=== PATIENT | male | born 1955 | race Caucasian/White ===

== ENCOUNTER 2019-06-03 05:41 | Emergency (ER) | payer BC ==
[2019-06-03] MEDS ORDERED: Acetaminophen/HYDROcodone 325-5 MG Tab PO ONE (06:11)
--- NOTE | 2019-06-03 06:16 | EDM.PDOC ---
ED HPI GENERAL MEDICAL PROBLEM - General Chief Complaint: Flank Pain Stated Complaint: BACK PAIN Time Seen by Provider: 06/03/19 06:02 Source of Information: Reports: Patient, RN Notes Reviewed - History of Present Illness INITIAL COMMENTS - FREE TEXT/NARRATIVE: 64-year-old male fell out of bed about 2 hours ago. He states he was having a crazy dream, playing football and ended up falling out of bed landing hard on his right side. He hit his face against a dresser alongside the bed did suffer an abrasion injury to the right side of his face. He does have some stiffness and soreness of his neck. He denies injury to his head. He has no headache and there has been no nausea or vomiting. His major discomfort has been his right lower lateral and anterior ribs. He has mild pain with deep breathing, more severe pain with motion. No hip upper or lower extremity pain or injury. He has been ambulatory. Right Flank Pain Score (Numeric/FACES): 9 - Related Data Allergies Allergy/AdvReac Type Severity Reaction Status Date / Time azithromycin [From Zithromax] Allergy Swelling Verified 06/03/19 05:51 Home Meds: Home Meds Aspirin 81 mg PO DAILY 06/03/19 [History] B2/Vits A,C,E/Lut/Zeaxanth/Min [Icaps] 1 tab PO DAILY 06/03/19 [History] Hydrocodone/Acetaminophen [[place] 5-325 Tablet] 2 each PO Q4HR PRN #20 tablet 07/18 [Rx] Multivitamin [Multivitamins] 1 tab PO DAILY 06/03/19 [History] Olmesartan Medoxomil [Benicar] 20 mg PO DAILY 06/03/19 [History] Past Medical History HEENT History: Reports: Impaired Vision Cardiovascular History: Reports: Hypertension Endocrine/Metabolic History: Reports: Other (See Below) Other Endocrine/Metabolic History: prediabetic Oncologic (Cancer) History: Reports: Squamous Cell Carcinoma Dermatologic History: Reports: Eczema - Infectious Disease History Infectious Disease History: Reports: Chicken Pox, Measles, Mumps - Past Surgical History HEENT Surgical History: Reports: Oral Surgery Social & Family History - Family History Family Medical History: Noncontributory - Tobacco Use Smoking Status *Q: Never Smoker Second Hand Smoke Exposure: No - Caffeine Use Caffeine Use: Reports: Coffee, Soda - Recreational Drug Use Recreational Drug Use: No ED ROS GENERAL - Review of Systems Review Of Systems: See Below Constitutional: Reports: No Symptoms HEENT: Reports: Other (He does have some right-sided facial discomfort and has suffered bruise and abrasion injury to the right side of his face) Respiratory: Reports: Pleuritic Chest Pain. Denies: Shortness of Breath Cardiovascular: Reports: Chest Pain GI/Abdominal: Denies: Abdominal Pain, Nausea, Vomiting Musculoskeletal: Reports: Neck Pain. Denies: Back Pain, Joint Pain Skin: Reports: Erythema (Right face) Neurological: Denies: Dizziness, Headache, Numbness, Tingling, Trouble Speaking , Weakness ED EXAM, GENERAL - Physical Exam Exam: See Below General Appearance: Alert, Mild Distress Eye Exam: Bilateral Eye: PERRL Ear Exam: Bilateral Ear: Auricle Normal Nose: Normal Inspection Throat/Mouth: Normal Inspection, Normal Oropharynx Head: Other (Moderate diffuse erythema with superficial abrasion injury and mild bruising right lateral face, no bony tenderness of the zygomatic arch TMJ or mandible.) Neck: No: Tender Midline Respiratory/Chest: No Respiratory Distress, Lungs Clear, Normal Breath Sounds, Other (Moderate tenderness of right lower lateral and anterior lateral rib cage , no bruising or swelling visible). No: Rhonchi, Wheezing Cardiovascular: Regular Rate, Rhythm GI/Abdominal: Soft, Other (Mild tenderness right upper abdomen). No: Guarding Back Exam: No: Paraspinal Tenderness, Vertebral Tenderness Extremities: Normal Inspection, Normal Range of Motion Neurological: Alert, Oriented, No Motor/Sensory Deficits Skin Exam: Warm, Dry Course - Vital Signs Last Recorded V/S: Last Vital Signs Temp 99.1 F 06/03/19 07:30 Pulse 64 06/03/19 07:30 Resp 16 06/03/19 07:30 BP 106/60 06/03/19 07:30 Pulse Ox 92 L 06/03/19 07:30 - Orders/Labs/Meds Meds: Medications Discontinued Medications Generic Name Dose Route Start Last Admin Trade Name Freq PRN Reason Stop Dose Admin Hydrocodone Bitart/Acetaminophen 2 tab 06/03/19 06:11 06/03/19 06:19 [place] 325-5 Mg PO 06/03/19 06:12 2 tab ONETIME ONE Administration - Re-Assessments/Exams Free Text/Narrative Re-Assessment/Exam: 06/04/19 13:21. no visible fx, good relief of pain after 2 norco 5/325, discharge instr. as documented. Departure - Departure Time of Disposition: 07:02 Disposition: Home, Self-Care 01 Condition: Fair Clinical Impression: Fall, Rib contusion, Contusion of flank - Discharge Information Prescriptions: Hydrocodone/Acetaminophen [[place] 5-325 Tablet] 2 each PO Q4HR PRN #20 tablet PRN Reason: Pain Instructions: Contusion, [id number] Referrals: Wesley Mcclain MD [Primary Care Provider] - Forms: ED Department Discharge Additional Instructions: Rest, avoid heavy lifting, alternate ice and heat to area of discomfort as needed, you can take Advil or ibuprofen 3-4 times daily as needed, hydrocodone 1 or 2 tabs every 4-6 hours as needed for severe pain, as the discomfort lessens you can slowly as the frequency and dosage of the hydrocodone as discussed. Prescription for the hydrocodone has been sent electronically to [facility] at the [facility], [place] grocery store location. You can then eventually switch over to Tylenol 3-4 times daily. The pain will likely take one to 2 weeks or even longer to go completely away. Follow-up clinic as needed, return to ED as needed if symptoms worsening in any way. Sepsis Event Note - Evaluation Sepsis Screening Result: No Definite Risk - Focused Exam Date Exam was Performed: 06/04/19 Time Exam was Performed: 13:20
--- NOTE | 2019-06-03 07:05 | CR ---
Chest and right ribs: Frontal view of the chest was obtained as well as four views of the right ribs. Comparison: No previous chest imaging. Heart size appears mildly prominent. Upper mediastinum is normal. Lungs are clear with no acute parenchymal change. Degenerative endplate spurring is noted within the spine. No discrete fracture or other bony abnormality is appreciated. Impression: 1. No discrete right-sided rib abnormality is appreciated. Nondisplaced fracture could be missed. 2. Degenerative endplate spurring within the spine. 3. Nothing acute is appreciated. Diagnostic code #2 This report was dictated in [place] Standard Time
== END 2019-06-03 07:30 | disposition home or self-care (01) ==
LOC: JD.ED 05:41
DX: S20.211A Contusion of right front wall of thorax, initial encounter (principal); S30.1XXA Contusion of abdominal wall, initial encounter; I10 Essential (primary) hypertension; Z88.1 Allergy status to other antibiotic agents; Z79.82 Long term (current) use of aspirin; Z79.899 Other long term (current) drug therapy; W06.XXXA Fall from bed, initial encounter
CPT/HCPCS: 71101; 99284; A9270; 99283

== ENCOUNTER 2020-02-17 10:36 | Emergency (ER) | payer BC ==
--- NOTE | 2020-02-17 11:46 | EDM.PDOC ---
ED HPI GENERAL MEDICAL PROBLEM - General Chief Complaint: Respiratory Problem Stated Complaint: COVID + AND LOW O2 Time Seen by Provider: 02/17/20 11:11 Source of Information: Reports: Patient History Limitations: Reports: No Limitations - History of Present Illness INITIAL COMMENTS - FREE TEXT/NARRATIVE: Patient is a 65-year-old male presenting to the emergency department with complaints of fever, chills, headache, cough, and shortness of breath with exertion. He tested positive for COVID-19 10 days ago, however states he had very minimal symptoms up until about 4 days ago. He was tested because his tested positive. At the time he was tested, he was asymptomatic, however the day after he tested he felt more fatigued. Approximately 4 days ago he states he developed fever, headache, cough, and shortness of breath with exertion. He has a pulse oximeter at home and states his oxygen was as low as 90% this morning. He denies shortness of breath at rest. He has had no nausea, vomiting, or diarrhea. T-max at home was 103, however he states today that his fever seems to be improved. - Related Data Allergies Allergy/AdvReac Type Severity Reaction Status Date / Time azithromycin [From Zithromax] Allergy Swelling Verified 02/17/20 11:07 Home Meds: Home Meds Aspirin 81 mg PO DAILY 06/03/19 [History] B2/Vits A,C,E/Lut/Zeaxanth/Min [Icaps] 1 tab PO DAILY 06/03/19 [History] Hydrocodone/Acetaminophen [[place] 5-325 Tablet] 2 each PO Q4HR PRN #20 tablet 06/03/19 [Rx] Multivitamin [Multivitamins] 1 tab PO DAILY 06/03/19 [History] Olmesartan Medoxomil [Benicar] 20 mg PO DAILY 06/03/19 [History] Benzonatate [Tessalon Perle] 100 - 200 mg PO Q8H PRN #20 capsule 02/17/20 [Rx] dexAMETHasone [Dexamethasone] 6 mg PO BID 4 Days #8 tab 02/17/20 [Rx] Past Medical History HEENT History: Reports: Impaired Vision Cardiovascular History: Reports: Hypertension Endocrine/Metabolic History: Reports: Other (See Below) Other Endocrine/Metabolic History: prediabetic Oncologic (Cancer) History: Reports: Squamous Cell Carcinoma Dermatologic History: Reports: Eczema - Infectious Disease History Infectious Disease History: Reports: Novel Coronavirus - Past Surgical History HEENT Surgical History: Reports: Oral Surgery Social & Family History - Family History Family Medical History: Noncontributory - Tobacco Use Tobacco Use Status *Q: Never Tobacco User Second Hand Smoke Exposure: No - Caffeine Use Caffeine Use: Reports: Coffee - Recreational Drug Use Recreational Drug Use: No ED ROS GENERAL - Review of Systems Review Of Systems: See Below Constitutional: Reports: Fever, Chills, Weakness, Fatigue HEENT: Reports: No Symptoms Respiratory: Reports: Shortness of Breath, Cough, Other (Chest tightness with coughing) Cardiovascular: Reports: Dyspnea on Exertion. Denies: Chest Pain Endocrine: Reports: No Symptoms GI/Abdominal: Reports: No Symptoms. Denies: Abdominal Pain, Diarrhea, Nausea, Vomiting : Reports: No Symptoms Musculoskeletal: Reports: No Symptoms Skin: Reports: No Symptoms Neurological: Reports: Headache. Denies: Confusion Psychiatric: Reports: No Symptoms Hematologic/Lymphatic: Reports: No Symptoms Immunologic: Reports: No Symptoms ED EXAM, GENERAL - Physical Exam Exam: See Below General Appearance: Alert, WD/WN, No Apparent Distress Respiratory/Chest: No Respiratory Distress, Normal Breath Sounds, No Accessory Muscle Use, Chest Non-Tender, Crackles (Fine crackles bilateral lower lobes.). No: Wheezing Cardiovascular: Normal Peripheral Pulses, Regular Rate, Rhythm, No Edema, No Gallop, No JVD, No Murmur, No Rub GI/Abdominal: Normal Bowel Sounds, Soft, Non-Tender, No Organomegaly, No Distention, No Abnormal Bruit, No Mass Neurological: Alert, Oriented, CN II-XII Intact, Normal Cognition, Normal Gait, Normal Reflexes, No Motor/Sensory Deficits Psychiatric: Normal Affect, Normal Mood Skin Exam: Warm, Dry, Intact, Normal Color, No Rash #1 Interpretation EKG Date: 02/17/20 Time: 11:50 Rhythm: NSR Rate (Beats/Min): 82 [place]: Normal P-Wave: Present QRS: Normal ST-T: Normal QT: Normal Course - Vital Signs Last Recorded V/S: Last Vital Signs Temp 97.3 F 02/17/20 11:03 Pulse 86 02/17/20 11:03 Resp 20 02/17/20 11:03 BP 150/85 H 02/17/20 11:03 Pulse Ox 93 L 02/17/20 11:03 - Orders/Labs/Meds Orders: Active Orders 24 hr Category Date Time Status EKG Documentation Completion [RC] STAT Care 02/17/20 11:10 Active Chest 1V Frontal [CR] Stat Exams 02/17/20 11:10 Taken Labs: Laboratory Tests 02/17/20 02/17/20 02/17/20 Range/Units 11:35 11:35 11:35 WBC 8.22 (4.23-9.07) K/mm3 RBC 4.73 (4.63-6.08) M/mm3 Hgb 13.5 L (13.7-17.5) gm/dl Hct 41.2 (40.1-51.0) % MCV 87.1 (79.0-92.2) fl MCH 28.5 (25.7-32.2) pg MCHC 32.8 (32.2-35.5) g/dl RDW Std Deviation 43.3 (35.1-43.9) fL Plt Count 227 (163-337) K/mm3 MPV 8.7 L (9.4-12.3) fl Neut % (Auto) 80.9 H (34.0-67.9) % Lymph % (Auto) 11.8 L (21.8-53.1) % [place] % (Auto) 6.6 (5.3-12.2) % Eos % (Auto) 0.1 L (0.8-7.0) Baso % (Auto) 0.1 (0.1-1.2) % Neut # (Auto) 6.65 H (1.78-5.38) K/mm3 Lymph # (Auto) 0.97 L (1.32-3.57) K/mm3 [place] # (Auto) 0.54 (0.30-0.82) K/mm3 Eos # (Auto) 0.01 L (0.04-0.54) K/mm3 Baso # (Auto) 0.01 (0.01-0.08) K/mm3 D-Dimer, Quantitative 0.73 H (0.19-0.50) mg/L Sodium 140 (136-145) mEq/L Potassium 3.8 (3.5-5.1) mEq/L Chloride 103 (98-107) mEq/L Carbon Dioxide 29 (21-32) mEq/L Anion Gap 11.8 (5-15) BUN 24 H (7-18) mg/dL Creatinine 2.1 H (0.7-1.3) mg/dL Est Cr Clr Drug Dosing 40.23 mL/min Estimated GFR (MDRD) 32 (>60) mL/min BUN/Creatinine Ratio 11.4 L (14-18) Glucose 134 H (80-115) mg/dL Calcium 8.4 L (8.5-10.1) mg/dL Ferritin (26-388) ng/ml Total Bilirubin 0.5 (0.2-1.0) mg/dL AST 34 (15-37) U/L ALT 47 (16-63) U/L Alkaline Phosphatase 95 (46-116) U/L Lactate Dehydrogenase 271 H (85-227) U/L Troponin I < 0.017 (0.00-0.056) ng/mL C-Reactive Protein 20.0 H* (<1.0) mg/dL NT-Pro-B Natriuret Pep (0-125) pg/mL Total Protein 6.4 (6.4-8.2) g/dl Albumin 2.0 L (3.4-5.0) g/dl Globulin 4.4 gm/dL Albumin/Globulin Ratio 0.5 L (1-2) 02/17/20 02/17/20 Range/Units 11:35 11:35 WBC (4.23-9.07) K/mm3 RBC (4.63-6.08) M/mm3 Hgb (13.7-17.5) gm/dl Hct (40.1-51.0) % MCV (79.0-92.2) fl MCH (25.7-32.2) pg MCHC (32.2-35.5) g/dl RDW Std Deviation (35.1-43.9) fL Plt Count (163-337) K/mm3 MPV (9.4-12.3) fl Neut % (Auto) (34.0-67.9) % Lymph % (Auto) (21.8-53.1) % [place] % (Auto) (5.3-12.2) % Eos % (Auto) (0.8-7.0) Baso % (Auto) (0.1-1.2) % Neut # (Auto) (1.78-5.38) K/mm3 Lymph # (Auto) (1.32-3.57) K/mm3 [place] # (Auto) (0.30-0.82) K/mm3 Eos # (Auto) (0.04-0.54) K/mm3 Baso # (Auto) (0.01-0.08) K/mm3 D-Dimer, Quantitative (0.19-0.50) mg/L Sodium (136-145) mEq/L Potassium (3.5-5.1) mEq/L Chloride (98-107) mEq/L Carbon Dioxide (21-32) mEq/L Anion Gap (5-15) BUN (7-18) mg/dL Creatinine (0.7-1.3) mg/dL Est Cr Clr Drug Dosing mL/min Estimated GFR (MDRD) (>60) mL/min BUN/Creatinine Ratio (14-18) Glucose (80-115) mg/dL Calcium (8.5-10.1) mg/dL Ferritin 1506 H (26-388) ng/ml Total Bilirubin (0.2-1.0) mg/dL AST (15-37) U/L ALT (16-63) U/L Alkaline Phosphatase (46-116) U/L Lactate Dehydrogenase (85-227) U/L Troponin I (0.00-0.056) ng/mL C-Reactive Protein (<1.0) mg/dL NT-Pro-B Natriuret Pep 183 H (0-125) pg/mL Total Protein (6.4-8.2) g/dl Albumin (3.4-5.0) g/dl Globulin gm/dL Albumin/Globulin Ratio (1-2) Meds: Medications Discontinued Medications Generic Name Dose Route Start Last Admin Trade Name Freq PRN Reason Stop Dose Admin Dexamethasone 6 mg 02/17/20 12:46 02/17/20 13:15 Dexamethasone PO 02/17/20 12:47 6 mg ONETIME ONE Administration - Re-Assessments/Exams Free Text/Narrative Re-Assessment/Exam: Patient is a 65-year-old male presenting to the emergency department with complaints of cough, fever, headache, and shortness of breath with exertion. He was diagnosed Covid positive however his symptoms were not significant until about 4 days ago. He denies any chest pain associated with this. He has a pulse oximeter at home and states that he has seen his oxygen saturations go as low as 90%. Denies any nausea, vomiting, or diarrhea. Vital signs in triage were stable. We will complete a Covid work-up including CBC, CMP, CRP, D-dimer, troponin, ferritin, LDH, chest x-ray, and EKG. 02/17/20 13:24 Hematology was significant for D-dimer minimally elevated at 0.73, BUN 24, creatinine 2.1, ferritin 1506, LDH 271, CRP 20, BNP 183. Troponin was negative. Chest x-ray showed "bilateral peripheral masslike areas of hyperintensity. This pattern is consistent with the given diagnosis of COVID-19 pneumonia. These findings were not present on June 03, 2019." Patient's oxygen s aturation has been been maintaining 90 to 93% on room air. We will started on dexamethasone 6 mg twice daily. I will also send a prescription for Tessalon Perles. Discussed return precautions with patient and he verbalized understanding. Discharge instructions as documented. Departure - Departure Time of Disposition: 13:27 Disposition: Home, Self-Care 01 Condition: Good Clinical Impression: Pneumonia due to COVID-19 virus - Discharge Information *PRESCRIPTION DRUG MONITORING PROGRAM REVIEWED*: No *COPY OF PRESCRIPTION DRUG MONITORING REPORT IN PATIENT BUCK: No Prescriptions: dexAMETHasone [Dexamethasone] 6 mg PO BID 4 Days #8 tab Benzonatate [Tessalon Perle] 100 - 200 mg PO Q8H PRN #20 capsule PRN Reason: Cough Instructions: COVID-19, COVID-19 Frequently Asked Questions Referrals: Wesley Mcclain MD [Primary Care Provider] - Forms: ED Department Discharge Additional Instructions: You were seen in the emergency department today for cough, fever, headache, and shortness of breath with a diagnosis of COVID-19. Your work-up included blood work, chest x-ray, and an EKG of your heart. Results your work-up were consistent with your diagnosis of COVID-19. Your chest x-ray did show that you have some viral pneumonia. Your troponin and EKG were normal indicating that your heart is not being strained at this point. While in the ER, your oxygen saturations maintained between 90 and 93% on room air. You have been started on dexamethasone which is a steroid as well as Tessalon Perles for cough. Take these medications as prescribed. Continue to monitor your oxygen saturations at home. If you are maintaining an oxygen saturation below 90%, I would recommend that you return to the emergency department for reevaluation. If you experience any other new or worsening symptoms of concern, please do not hesitate to return to the ER. Sepsis Event Note (ED) - Evaluation Sepsis Screening Result: No Definite Risk - Focused Exam Vital Signs: Vital Signs Temp Pulse Resp BP Pulse Ox 02/17/20 11:03 97.3 F 86 20 150/85 H 93 L - My Orders Last 24 Hours: My Active Orders 02/17/20 11:10 EKG Documentation Completion [RC] STAT Chest 1V Frontal [CR] Stat - Assessment/Plan Last 24 Hours: My Active Orders 02/17/20 11:10 EKG Documentation Completion [RC] STAT Chest 1V Frontal [CR] Stat
[2020-02-17] MEDS ORDERED: Dexamethasone 4 MG Tab PO ONE (12:46)
== END 2020-02-17 13:50 | disposition home or self-care (01) ==
LOC: JD.ED 10:36
DX: U07.1 COVID-19 (principal); J12.89 Other viral pneumonia; R79.89 Other specified abnormal findings of blood chemistry; Z88.1 Allergy status to other antibiotic agents; Z79.82 Long term (current) use of aspirin; Z79.899 Other long term (current) drug therapy
CPT/HCPCS: 36415; 71045; 80053; 82728; 83615; 83880; 84484; 85025; 85379; 86140; 93005; 99285; J8540; 93010; 99283

== ENCOUNTER 2020-02-23 20:54 | Inpatient (IN) | payer BC ==
[2020-02-23] MEDS ORDERED: Sodium Chloride 0.9% 1,000 ML IV SCH (21:30)
[2020-02-23] MEDS ORDERED: HYDROmorphone 1 MG/ML Syringe IVPUSH ONE (21:35)
[2020-02-23] MEDS ORDERED: Ondansetron 4 MG/2 ML SDV IVPUSH ONE (21:36)
--- NOTE | 2020-02-23 21:36 | EDM.PDOC ---
ED HPI GENERAL MEDICAL PROBLEM - General Chief Complaint: Respiratory Problem Stated Complaint: STOMACH PAIN/SHORT OF BREATH Time Seen by Provider: 02/23/20 21:07 Source of Information: Reports: Patient, Old Records (ED visit 02/17/2020) History Limitations: Reports: No Limitations - History of Present Illness INITIAL COMMENTS - FREE TEXT/NARRATIVE: Mr. Louis is a very pleasant 65-year-old gentleman who, medical records indicate, was seen in this ED on 02/17/2020 with a complaint at that time of fever, chills, headache, cough, and dyspnea on exertion. A swab on 02/07/2020 had returned positive, although the patient had not had any symptoms until on or about 02/13/2020. The patient had said that the only reason why he was tested is because his had tested positive. He reported that his pulse oximeter had been 90% that morning, with a T-max of 103 degrees. In the ED, the patient was found to be afebrile, saturating 93% on room air. His physical exam found fine bibasilar crackles without wheezing. The remainder of his examination was unremarkable. Work-up included a CBC, CMP, CRP, ferritin, LDH, troponin, BNP, D-dimer, an ECG, and a test x-ray. His BUN/Cr were found to be elevated at 24/2.1, his blood glucose elevated at 134, his CRP elevated at 20.0, his ferritin elevated at 1506, his LDH elevated at 271, his BNP slightly elevated at 183, and his D-dimer mildly elevated at 0.73. The remainder of his blood work was unremarkable. His ECG was unremarkable, however, his chest x-ray demonstrated bilateral peripheral masslike areas of hyperintensity consistent with COVID-19. The patient was given dexamethasone 6 mg, then discharged home with a prescription for dexamethasone 6 mg BID x 4 days, along with Tessalon Perldallas #[id number]. The patient now returns to the ED stating that he developed stabbing right lower quadrant abdominal pain yesterday, 02/22/2020. The pain comes and goes, typically persisting for about 10 to 15 seconds and recurring about every 10 minutes, however, the pain can also be induced if he moves. He has not noticed any other modifiers. He has not had any associated fever, nausea, vomiting, diarrhea, or urinary symptoms. No prior similar symptoms. The patient did not take any [id number] or home remedies since the onset of his symptoms. Here in the ED, the patient's initial BP is found to be mildly elevated at 164/80, otherwise, he is hemodynamically stable, afebrile, saturating 94% on room air. The patient states that he has had a slight cough productive of clear sputum, and dyspnea on exertion since last week. Otherwise, the patient denies having a recent fever, chills, sore throat, ear pain, nasal or sinus congestion, dyspnea at rest, chest pain, palpitations, nausea, vomiting, constipation, diarrhea, urinary symptoms, recent weight gain or weight loss, recent bloody bowel movements or black bowel movements, recent joint aches, headaches, or rashes. The patient's PCP is Dr. Wesley Mcclain. Right Lower Abdomen Pain Score (Numeric/FACES): 4 - Related Data Allergies Allergy/AdvReac Type Severity Reaction Status Date / Time azithromycin [From Zithromax] Allergy Swelling Verified 02/23/20 21:11 Home Meds: Home Meds Aspirin 81 mg PO DAILY 06/03/19 [History] B2/Vits A,C,E/Lut/Zeaxanth/Min [Icaps] 1 tab PO DAILY 06/03/19 [History] Hydrocodone/Acetaminophen [[place] 5-325 Tablet] 2 each PO Q4HR PRN #20 tablet 06/03/19 [Rx] Multivitamin [Multivitamins] 1 tab PO DAILY 06/03/19 [History] Olmesartan Medoxomil [Benicar] 20 mg PO DAILY 06/03/19 [History] Benzonatate [Tessalon Perle] 100 - 200 mg PO Q8H PRN #20 capsule 02/17/20 [Rx] Past Medical History HEENT History: Reports: Impaired Vision Cardiovascular History: Reports: Hypertension Genitourinary History: Reports: Chronic Renal Insuffiency Musculoskeletal History: Reports: Gout (suspected, not confirmed) Endocrine/Metabolic History: Reports: Other (See Below) (Prediabetes) Oncologic (Cancer) History: Reports: Squamous Cell Carcinoma (nose + behind Rt ear, both excised) Dermatologic History: Reports: Eczema - Infectious Disease History Infectious Disease History: Reports: Novel Coronavirus (02/07/2020) - Past Surgical History HEENT Surgical History: Reports: Oral Surgery (dental extractions) Oncologic Surgical History: Reports: Other (See Below) (SCC excised from nose and behind Rt ear) Social & Family History - Family History Family Medical History: Noncontributory - Tobacco Use Tobacco Use Status *Q: Never Tobacco User - Alcohol Use Alcohol Use History: Yes Alcohol Use Frequency: Rarely - Recreational Drug Use Recreational Drug Use: No - Living Situation & Occupation Living situation: Reports: , with Spouse, with Family (Son) 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 ED EXAM, GENERAL - Physical Exam Exam: See Below Exam Limited By: No Limitations General Appearance: Alert, WD/WN, No Apparent Distress (quite uncomfortable when asked to move) Eye Exam: Bilateral Eye: EOMI, Normal Inspection Ears: Normal External Exam, Hearing Grossly Normal Nose: Normal Inspection Throat/Mouth: Normal Inspection, Normal Lips, Normal Voice, No Airway Compromise Head: Atraumatic, Normocephalic Neck: Normal Inspection, Full Range of Motion Respiratory/Chest: No Respiratory Distress, Lungs Clear, Normal Breath Sounds, No Accessory Muscle Use Cardiovascular: Normal Peripheral Pulses, Regular Rate, Rhythm, No Gallop, No JVD, No Murmur, No Rub Peripheral Pulses: 3+: Radial (L), Radial (R) GI/Abdominal: Normal Bowel Sounds, Soft, No Organomegaly, No Distention, No Abnormal Bruit, No Mass, Tender (Exquisite, to the right lower quadrant only. Essentially nontender elsewhere. Rovsing sign absent. Obturator sign present. Psoas sign absent. Heel drop sign absent.) Back Exam: Normal Inspection, Full Range of Motion. No: CVA Tenderness (L), CVA Tenderness (R) Extremities: Normal Inspection, Normal Range of Motion, Normal Capillary Refill Neurological: Alert, Oriented, Normal Cognition, No Motor/Sensory Deficits Psychiatric: Normal Affect Skin Exam: Warm, Dry, Intact, Normal Color, No Rash Course - Vital Signs Last Recorded V/S: Last Vital Signs Temp 36.3 C 02/23/20 21:09 Pulse 97 02/23/20 21:09 Resp 16 02/23/20 21:09 BP 164/80 H 02/23/20 21:09 Pulse Ox 94 L 02/23/20 21:09 - Orders/Labs/Meds Orders: Active Orders 24 hr Category Date Time Status Abdomen Pelvis w Cont [CT] Stat Exams 02/23/20 21:29 Taken Lactated Ringers [Ringers, Lactated] 1,000 ml Med 02/23/20 23:45 Active IV ASDIRECTED Isolation [COMM] Routine Oth 02/23/20 21:41 Ordered Medication Orders Lactated Ringer's (Ringers, Lactated) 1,000 mls @ 125 mls/hr IV ASDIRECTED NICK Last Admin: 02/24/20 00:21 Dose: 125 mls/hr Documented by: GURDEEP Labs: Laboratory Tests 02/23/20 02/23/20 02/23/20 Range/Units 21:53 21:53 23:39 WBC 21.60 H (4.23-9.07) K/mm3 RBC 5.08 (4.63-6.08) M/mm3 Hgb 14.5 (13.7-17.5) gm/dl Hct 44.2 (40.1-51.0) % MCV 87.0 (79.0-92.2) fl MCH 28.5 (25.7-32.2) pg MCHC 32.8 (32.2-35.5) g/dl RDW Std Deviation 43.3 (35.1-43.9) fL Plt Count 356 H D (163-337) K/mm3 MPV 8.7 L (9.4-12.3) fl Neutrophils % (Manual) 95 H (40-60) % Band Neutrophils % 0 (0-10) % Lymphocytes % (Manual) 5 L (20-40) % Atypical Lymphs % 0 % Monocytes % (Manual) 0 L (2-10) % Eosinophils % (Manual) 0 L (0.8-7.0) % Basophils % (Manual) 0 L (0.2-1.2) Platelet Estimate Adequate Plt Morphology Comment Normal RBC Morph Comment Normal Sodium 136 (136-145) mEq/L Potassium 4.5 (3.5-5.1) mEq/L Chloride 102 (98-107) mEq/L Carbon Dioxide 25 (21-32) mEq/L Anion Gap 13.5 (5-15) BUN 37 H (7-18) mg/dL Creatinine 2.1 H (0.7-1.3) mg/dL Est Cr Clr Drug Dosing 40.23 mL/min Estimated GFR (MDRD) 32 (>60) mL/min BUN/Creatinine Ratio 17.6 (14-18) Glucose 210 H (80-115) mg/dL Calcium 8.3 L (8.5-10.1) mg/dL Magnesium 1.7 L (1.8-2.4) mg/dl Total Bilirubin 1.2 H (0.2-1.0) mg/dL AST 14 L (15-37) U/L ALT 81 H (16-63) U/L Alkaline Phosphatase 123 H (46-116) U/L Total Protein 6.0 L (6.4-8.2) g/dl Albumin 2.0 L (3.4-5.0) g/dl Globulin 4.0 gm/dL Albumin/Globulin Ratio 0.5 L (1-2) Urine Color Yellow (Yellow) Urine Appearance Clear (Clear) Urine pH 5.5 (5.0-8.0) Ur Specific Banco > or = 1.030 (1.005-1.030) Urine Protein 3+ H (Negative) Urine Glucose (UA) Negative (Negative) Urine Ketones Negative (Negative) Urine Occult Blood Negative (Negative) Urine Nitrite Negative (Negative) Urine Bilirubin Negative (Negative) Urine Urobilinogen 2.0 H (0.2-1.0) Ur Leukocyte Esterase Negative (Negative) U Hyaline Cast (Auto) 0-5 (0-5) /lpf Urine RBC Not seen (0-5) /hpf Urine WBC 0-5 (0-5) /hpf Ur Squamous Epith Cells 0-5 (0-5) /hpf Urine Bacteria Moderate H (FEW) /hpf Fine Granular Casts 0-5 (0-5) /lpf Urine Mucus Few (FEW) /hpf SARS-CoV-2 RNA (SARANYA) (NEGATIVE) 02/24/20 Range/Units 00:31 WBC (4.23-9.07) K/mm3 RBC (4.63-6.08) M/mm3 Hgb (13.7-17.5) gm/dl Hct (40.1-51.0) % MCV (79.0-92.2) fl MCH (25.7-32.2) pg MCHC (32.2-35.5) g/dl RDW Std Deviation (35.1-43.9) fL Plt Count (163-337) K/mm3 MPV (9.4-12.3) fl Neutrophils % (Manual) (40-60) % Band Neutrophils % (0-10) % Lymphocytes % (Manual) (20-40) % Atypical Lymphs % % Monocytes % (Manual) (2-10) % Eosinophils % (Manual) (0.8-7.0) % Basophils % (Manual) (0.2-1.2) Platelet Estimate Plt Morphology Comment RBC Morph Comment Sodium (136-145) mEq/L Potassium (3.5-5.1) mEq/L Chloride (98-107) mEq/L Carbon Dioxide (21-32) mEq/L Anion Gap (5-15) BUN (7-18) mg/dL Creatinine (0.7-1.3) mg/dL Est Cr Clr Drug Dosing mL/min Estimated GFR (MDRD) (>60) mL/min BUN/Creatinine Ratio (14-18) Glucose (80-115) mg/dL Calcium (8.5-10.1) mg/dL Magnesium (1.8-2.4) mg/dl Total Bilirubin (0.2-1.0) mg/dL AST (15-37) U/L ALT (16-63) U/L Alkaline Phosphatase (46-116) U/L Total Protein (6.4-8.2) g/dl Albumin (3.4-5.0) g/dl Globulin gm/dL Albumin/Globulin Ratio (1-2) Urine Color (Yellow) Urine Appearance (Clear) Urine pH (5.0-8.0) Ur Specific Banco (1.005-1.030) Urine Protein (Negative) Urine Glucose (UA) (Negative) Urine Ketones (Negative) Urine Occult Blood (Negative) Urine Nitrite (Negative) Urine Bilirubin (Negative) Urine Urobilinogen (0.2-1.0) Ur Leukocyte Esterase (Negative) U Hyaline Cast (Auto) (0-5) /lpf Urine RBC (0-5) /hpf Urine WBC (0-5) /hpf Ur Squamous Epith Cells (0-5) /hpf Urine Bacteria (FEW) /hpf Fine Granular Casts (0-5) /lpf Urine Mucus (FEW) /hpf SARS-CoV-2 RNA (SARANYA) Positive H (NEGATIVE) Meds: Medications Generic Name Dose Route Start Last Admin Trade Name Freq PRN Reason Stop Dose Admin Lactated Ringer's 1,000 mls @ 125 mls/hr 02/23/20 23:45 02/24/20 00:21 Ringers, Lactated IV 125 mls/hr ASDIRECTED NICK Administration Discontinued Medications Generic Name Dose Route Start Last Admin Trade Name Floyd PRN Reason Stop Dose Admin Diatrizoate Meglum/Diatrizoate Sod 120 ml 02/23/20 23:41 02/23/20 23:42 Gastrografin 37% PO 02/23/20 23:42 120 ml ONETIME ONE Administration Hydromorphone HCl 1 mg 02/23/20 21:35 02/23/20 21:55 Dilaudid IVPUSH 02/23/20 21:36 1 mg ONETIME ONE Administration Sodium Chloride 1,000 mls @ 150 mls/hr 02/23/20 21:30 02/23/20 21:52 Normal Saline IV 02/23/20 23:59 150 mls/hr ASDIRECTED NICK Administration Piperacillin Sod/Tazobactam 100 mls @ 200 mls/hr 02/23/20 23:59 02/24/20 00:20 Sod 4.5 gm/ Sodium Chloride IV 02/24/20 00:28 200 mls/hr ONETIME ONE Administration Iopamidol 100 ml 02/23/20 23:41 02/23/20 23:42 Isovue-300 (61%) IVPUSH 02/23/20 23:42 100 ml ONETIME ONE Administration Ondansetron HCl 4 mg 02/23/20 21:36 02/23/20 21:55 Zofran IVPUSH 02/23/20 21:37 4 mg ONETIME ONE Administration Sodium Chloride 10 ml 02/23/20 23:41 02/23/20 23:43 Saline Flush FLUSH 02/23/20 23:42 10 ml ONETIME ONE Administration - Re-Assessments/Exams Free Text/Narrative Re-Assessment/Exam: 02/23/20 21:31 As above, the patient, who swabbed positive for the SARS-CoV-2 virus on 02/07/2020, developed intermittent right lower quadrant abdominal pain yesterday. He states that he has had an intermittent fever for the past week, although he is afebrile here in the ED. On examination, the patient has considerable tenderness to his right lower quadrant, with no significant tenderness elsewhere, and no Rovsing sign. He has an obturator sign, although no psoas sign or heel drop sign. His evaluation is concerning for acute appendicitis, therefore I have ordered a work-up that includes blood work, a urinalysis, and a CT of his abdomen and pelvis with oral and IV contrast. In the meantime, the patient will be given IV fluid,, IV Dilaudid, and IV Zofran. 02/23/20 22:34 The patient's CBC is remarkable for WBC count elevated at 21.60, but with 0% ban demia. She has thrombocytosis of 356,000, with the remainder of her CBC being unremarkable. Her CMP is remarkable for a BUN/Cr elevated at 37/2.1, a blood glucose elevated at 210, a TBil slightly elevated at 1.2, and AST normal at 14, but with a bicarbonate elevated at 81, and an alkaline phosphatase slightly elevated at 123, with the remainder of her CMP being unremarkable. Her magnesium level is slightly depressed at 1.7. Review of prior labs finds that the patient's BUN/Cr were 24/2.1 on 02/17/2020. Her TBil that time was 0.5, her AST/ALT 34/47, respectively, and her alkaline phosphatase 95. The patient's elevated WBC count is most likely due to the dexamethasone she was prescribed on 02/17/2020. 02/23/20 23:56 CT of the abdomen and pelvis with oral and IV fluid is read by [facility] as: 1. Findings suggest acute appendicitis of moderate severity. 2. There is mucosal thickening of the small bowel loops adjacent to the appendix, enteritis is suspected. This likely is secondary to appendicitis. Primary enteritis from some other cause is considered less likely. 3. Non-specific/nonobstructive intestinal gas pattern. 4. Parenchymal abnormality both bases. Question bilateral pneumonia. 5. There are multiple bilateral simple renal cysts. No follow-up is recommended. Case discussed with Dr. Huston at 23:51. She recommended that we treat the patient with Zosyn, LR at 125 mL/h, IV Dilaudid, with the intention of taking him to the OR in the a.m. Since the patient will be admitted, I will order a swab for the SARS-CoV-2 virus. 02/24/20 00:55 The patient's urinalysis is unremarkable. 02/24/20 01:30 The patient's swab for the SARS-CoV-2 virus returned positive. 02/24/20 01:35 Notified by Hector WATT that the patient's oxygen saturation has dropped into the mid 80s while he is sleeping. I therefore asked her to apply some oxygen by nasal cannula to bring it up into the low 90s. Departure - Departure Time of Disposition: 23:55 Disposition: Refer to Observation Condition: Good Clinical Impression: Acute appendicitis, Chronic renal insufficiency, COVID-19 - Discharge Information *PRESCRIPTION DRUG MONITORING PROGRAM REVIEWED*: Not Applicable *COPY OF PRESCRIPTION DRUG MONITORING REPORT IN PATIENT BUCK: Not Applicable Sepsis Event Note (ED) - Evaluation Sepsis Screening Result: No Definite Risk - Focused Exam Vital Signs: Vital Signs Temp Pulse Resp BP Pulse Ox 02/23/20 21:09 36.3 C 97 16 164/80 H 94 L - My Orders Last 24 Hours: My Active Orders 02/23/20 21:29 Abdomen Pelvis w Cont [CT] Stat 02/23/20 21:41 Isolation [COMM] Routine 02/23/20 23:45 Lactated Ringers [Ringers, Lactated] 1,000 ml IV ASDIRECTED - Assessment/Plan Last 24 Hours: My Active Orders 02/23/20 21:29 Abdomen Pelvis w Cont [CT] Stat 02/23/20 21:41 Isolation [COMM] Routine 02/23/20 23:45 Lactated Ringers [Ringers, Lactated] 1,000 ml IV ASDIRECTED
[2020-02-23] MEDS ORDERED: Diatrizoate Meglumine/Diatrizoate Sodium 37% 120 ML Bottle PO ONE (23:41)
[2020-02-23] MEDS ORDERED: Sodium Chloride 0.9% 10 ML Syringe FLUSH ONE (23:41)
[2020-02-23] MEDS ORDERED: Iopamidol 612 MG/ML 100 ML Bottle IVPUSH ONE (23:41)
[2020-02-23] MEDS ORDERED: Lactated Ringers 1,000 ML IV SCH (23:45)
[2020-02-23] MEDS ORDERED: Piperacillin/Tazobactam 4.5 GM in Sodium Chloride 0.9% 100 ML IV ONE (23:59)
[2020-02-24] MEDS: HYDROmorphone 1 MG/ML Syringe IVPUSH PRN (02:57)
[2020-02-24] MEDS ORDERED: Ondansetron 4 MG/2 ML SDV IVPUSH PRN (06:50)
[2020-02-24] MEDS ORDERED: Benzonatate 100 MG Cap PO PRN (07:26)
--- NOTE | 2020-02-24 08:01 | PCM.HP.2 ---
H&P History of Present Illness - General Date of Service: 02/24/20 Admit Problem/Dx: Admission Diagnosis/Problem Admission Diagnosis/Problem Appendicitis - History of Present Illness Initial Comments - Free Text/Narative: 65 y/o male presents with RLQ abdominal pain that has been present for 2 days. This is worse with movement. He has obstipation with last bowel movement 2 days ago. He had a fever to 100+ overnight 1 day ago at the onset of pain, and did have a fever pole shaver helper at that time. He has had decreased appetite, but this was concurrent with his recent COVID illness. He was diagnosed with COVID 18d ago, but became symptomatic 12 days ago. He continues to have cough and dyspnea with exercise. He denies any cough at baseline. He completed a course of steroids for COVID 3d ago. He was seen and evaluated in the ED, with CT findings of appendicitis. He was admitted for antibiotics and plan for surgery. Per nursing, he required some oxygen overnight (0.5L) via nasal cannula for desaturations, and has been short of breath with activity. Pt has also had a cough. Right Lower Abdomen Pain Score (Numeric/FACES): 8 - Related Data Allergies/Adverse Reactions: Allergies Allergy/AdvReac Type Severity Reaction Status Date / Time azithromycin [From Zithromax] Allergy Swelling Verified 02/24/20 02:37 Home Medications: Home Meds Aspirin 81 mg PO DAILY 06/03/19 [History] B2/Vits A,C,E/Lut/Zeaxanth/Min [Icaps] 1 tab PO DAILY 06/03/19 [History] Multivitamin [Multivitamins] 1 tab PO DAILY 06/03/19 [History] Olmesartan Medoxomil [Benicar] 20 mg PO DAILY 06/03/19 [History] Benzonatate [Tessalon Perle] 100 - 200 mg PO Q8H PRN #20 capsule 02/17/20 [Rx] Non-Formulary Medication [NF Drug] 1 tab PO DAILY 02/24/20 [History] Past Medical History HEENT History: Reports: Impaired Vision, Other (See Below) Other HEENT History: wears glasses, wisdom teeth removed Cardiovascular History: Reports: Hypertension Genitourinary History: Reports: Chronic Renal Insuffiency Musculoskeletal History: Reports: Gout Endocrine/Metabolic History: Reports: Other (See Below) (Prediabetes) Other Endocrine/Metabolic History: prediabetic Oncologic (Cancer) History: Reports: Squamous Cell Carcinoma Dermatologic History: Reports: Eczema - Infectious Disease History Infectious Disease History: Reports: Chicken Pox, Measles, Mumps, Novel Coronavirus - Past Surgical History HEENT Surgical History: Reports: Oral Surgery Cardiovascular Surgical History: Reports: None Male Surgical History: Reports: Circumcision Musculoskeletal Surgical History: Reports: None Oncologic Surgical History: Reports: Other (See Below) Other Oncologic Surgeries/Procedures: skin cancer behind ear and nose Social & Family History - Family History Cardiac: Reports: Hypertension Musculoskeletal: Reports: Other (See Below) (scoliosis) - Tobacco Use Tobacco Use Status *Q: Never Tobacco User Second Hand Smoke Exposure: No - Caffeine Use Caffeine Use: Reports: Coffee, Soda Other Caffeine Use: one can pop a day and 1-2 cups of coffee - Recreational Drug Use Recreational Drug Use: No - Living Situation & Occupation Living situation: Reports: , with Spouse, with Family (Son) 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 Denies: Hematochezia, Melena Genitourinary: Reports: No Symptoms Musculoskeletal: Reports: No Symptoms Skin: Reports: No Symptoms Neurological: Reports: No Symptoms Hematologic/Lymphatic: Reports: No Symptoms Exam - Exam Exam: See Below - Vital Signs Vital Signs: Last Vital Signs Temp 36.7 C 02/24/20 06:21 Pulse 88 02/24/20 06:21 Resp 22 H 02/24/20 06:21 BP 116/66 02/24/20 06:21 Pulse Ox 93 L 02/24/20 06:21 Weight: 116.528 kg - Exam Quality Assessment: Supplemental Oxygen General: Alert, Oriented HEENT: Conjunctiva Clear, EOMI Neck: Supple Lungs: Normal Respiratory Effort GI/Abdominal Exam: Soft, Guarding (in R abdomen), Rebound (on right lower quadrant), Tender, Hernia (at umbilicus) Extremities: Normal Inspection, No Pedal Edema Peripheral Pulses: 2+: Dorsalis Pedis (L), Dorsalis Pedis (R) Skin: Warm, Dry, Intact Neurological: Cranial Nerves Intact Neuro Extensive - Mental Status: Alert, Oriented x3 - Patient Data Lab Results Last 24 hrs: Laboratory Results - last 24 hr 02/23/20 02/23/20 02/23/20 Range/Units 21:53 21:53 23:39 WBC 21.60 H (4.23-9.07) K/mm3 RBC 5.08 (4.63-6.08) M/mm3 Hgb 14.5 (13.7-17.5) gm/dl Hct 44.2 (40.1-51.0) % MCV 87.0 (79.0-92.2) fl MCH 28.5 (25.7-32.2) pg MCHC 32.8 (32.2-35.5) g/dl RDW Std Deviation 43.3 (35.1-43.9) fL Plt Count 356 H D (163-337) K/mm3 MPV 8.7 L (9.4-12.3) fl Neutrophils % (Manual) 95 H (40-60) % Band Neutrophils % 0 (0-10) % Lymphocytes % (Manual) 5 L (20-40) % Atypical Lymphs % 0 % Monocytes % (Manual) 0 L (2-10) % Eosinophils % (Manual) 0 L (0.8-7.0) % Basophils % (Manual) 0 L (0.2-1.2) Platelet Estimate Adequate Plt Morphology Comment Normal RBC Morph Comment Normal Sodium 136 (136-145) mEq/L Potassium 4.5 (3.5-5.1) mEq/L Chloride 102 (98-107) mEq/L Carbon Dioxide 25 (21-32) mEq/L Anion Gap 13.5 (5-15) BUN 37 H (7-18) mg/dL Creatinine 2.1 H (0.7-1.3) mg/dL Est Cr Clr Drug Dosing 40.23 mL/min Estimated GFR (MDRD) 32 (>60) mL/min BUN/Creatinine Ratio 17.6 (14-18) Glucose 210 H (80-115) mg/dL Calcium 8.3 L (8.5-10.1) mg/dL Magnesium 1.7 L (1.8-2.4) mg/dl Total Bilirubin 1.2 H (0.2-1.0) mg/dL AST 14 L (15-37) U/L ALT 81 H (16-63) U/L Alkaline Phosphatase 123 H (46-116) U/L Total Protein 6.0 L (6.4-8.2) g/dl Albumin 2.0 L (3.4-5.0) g/dl Globulin 4.0 gm/dL Albumin/Globulin Ratio 0.5 L (1-2) Urine Color Yellow (Yellow) Urine Appearance Clear (Clear) Urine pH 5.5 (5.0-8.0) Ur Specific Perry > or = 1.030 (1.005-1.030) Urine Protein 3+ H (Negative) Urine Glucose (UA) Negative (Negative) Urine Ketones Negative (Negative) Urine Occult Blood Negative (Negative) Urine Nitrite Negative (Negative) Urine Bilirubin Negative (Negative) Urine Urobilinogen 2.0 H (0.2-1.0) Ur Leukocyte Esterase Negative (Negative) U Hyaline Cast (Auto) 0-5 (0-5) /lpf Urine RBC Not seen (0-5) /hpf Urine WBC 0-5 (0-5) /hpf Ur Squamous Epith Cells 0-5 (0-5) /hpf Urine Bacteria Moderate H (FEW) /hpf Fine Granular Casts 0-5 (0-5) /lpf Urine Mucus Few (FEW) /hpf SARS-CoV-2 RNA (SARANYA) (NEGATIVE) 02/24/20 Range/Units 00:31 WBC (4.23-9.07) K/mm3 RBC (4.63-6.08) M/mm3 Hgb (13.7-17.5) gm/dl Hct (40.1-51.0) % MCV (79.0-92.2) fl MCH (25.7-32.2) pg MCHC (32.2-35.5) g/dl RDW Std Deviation (35.1-43.9) fL Plt Count (163-337) K/mm3 MPV (9.4-12.3) fl Neutrophils % (Manual) (40-60) % Band Neutrophils % (0-10) % Lymphocytes % (Manual) (20-40) % Atypical Lymphs % % Monocytes % (Manual) (2-10) % Eosinophils % (Manual) (0.8-7.0) % Basophils % (Manual) (0.2-1.2) Platelet Estimate Plt Morphology Comment RBC Morph Comment Sodium (136-145) mEq/L Potassium (3.5-5.1) mEq/L Chloride (98-107) mEq/L Carbon Dioxide (21-32) mEq/L Anion Gap (5-15) BUN (7-18) mg/dL Creatinine (0.7-1.3) mg/dL Est Cr Clr Drug Dosing mL/min Estimated GFR (MDRD) (>60) mL/min BUN/Creatinine Ratio (14-18) Glucose (80-115) mg/dL Calcium (8.5-10.1) mg/dL Magnesium (1.8-2.4) mg/dl Total Bilirubin (0.2-1.0) mg/dL AST (15-37) U/L ALT (16-63) U/L Alkaline Phosphatase (46-116) U/L Total Protein (6.4-8.2) g/dl Albumin (3.4-5.0) g/dl Globulin gm/dL Albumin/Globulin Ratio (1-2) Urine Color (Yellow) Urine Appearance (Clear) Urine pH (5.0-8.0) Ur Specific Perry (1.005-1.030) Urine Protein (Negative) Urine Glucose (UA) (Negative) Urine Ketones (Negative) Urine Occult Blood (Negative) Urine Nitrite (Negative) Urine Bilirubin (Negative) Urine Urobilinogen (0.2-1.0) Ur Leukocyte Esterase (Negative) U Hyaline Cast (Auto) (0-5) /lpf Urine RBC (0-5) /hpf Urine WBC (0-5) /hpf Ur Squamous Epith Cells (0-5) /hpf Urine Bacteria (FEW) /hpf Fine Granular Casts (0-5) /lpf Urine Mucus (FEW) /hpf SARS-CoV-2 RNA (SARANYA) Positive H (NEGATIVE) Result Diagrams: 02/23/20 21:53 02/23/20 21:53 Sepsis Event Note - Evaluation Sepsis Screening Result: Severe Sepsis Risk - Focused Exam Vital Signs: Vital Signs Temp Temp Pulse Pulse Resp BP BP 02/24/20 06:21 36.7 C 88 22 H 116/66 02/24/20 02:28 90 02/24/20 02:13 36.9 C 89 24 H 137/73 02/24/20 01:40 36.8 C 93 19 148/79 H 02/23/20 21:09 36.3 C 97 16 164/80 H Pulse Ox Pulse Ox 02/24/20 06:21 93 L 02/24/20 02:28 94 L 02/24/20 02:13 94 L 02/24/20 01:40 90 L 83 L 02/23/20 21:09 94 L *Q Meaningful Use (ADM) - VTE Risk Assess *Q Each Risk Factor Represents 1 Point: Obesity ( BMI > 25 kg/m2) Total Score 1 Point Risk Factors: 1 Each Risk Factor Represents 2 Points: Age 60 - 74 Years Total Score 2 Point Risk Factors: 2 - Problem List (1) Acute appendicitis SNOMED Code(s): 20552503 ICD Code: K35.80 - UNSPECIFIED ACUTE APPENDICITIS Status: Acute Current Visit: Yes (2) COVID-19 SNOMED Code(s): 912298661 ICD Code: U07.1 - COVID-19 Status: Acute Current Visit: Yes (3) Chronic renal insufficiency SNOMED Code(s): 385442599 ICD Code: N18.9 - CHRONIC KIDNEY DISEASE, UNSPECIFIED Status: Acute Current Visit: Yes Problem List Initiated/Reviewed/Updated: Yes Orders Last 24hrs: Active Orders 24 hr Category Date Time Status Patient Status [ADT] Routine ADT 02/24/20 01:03 Active Bedrest Bathroom Privileges [RC] ASDIRECTED Care 02/24/20 06:52 Active NPO Now [Nothing per Oral Now Diet] [DIET] Diet 02/24/20 Breakfast Active Abdomen Pelvis w Cont [CT] Stat Exams 02/23/20 21:29 Taken Aspirin Med 02/24/20 09:00 Ordered 81 mg PO DAILY B2/Vits A,C,E/Lut/Zeaxanth/Min [Icaps] Med 02/24/20 09:00 Ordered 1 tab PO DAILY Benzonatate [Tessalon Perles] Med 02/24/20 07:26 Ordered 100 mg PO Q8H PRN HYDROmorphone [Dilaudid] Med 02/24/20 02:41 Active 1 mg IVPUSH Q2H PRN Lactated Ringers [Ringers, Lactated] 1,000 ml Med 02/24/20 07:00 Active IV ASDIRECTED Multivitamin [Multivitamins] Med 02/24/20 09:00 Ordered 1 tab PO DAILY Olmesartan Medoxomil Med 02/24/20 09:00 Ordered 20 mg PO DAILY Ondansetron [Zofran] Med 02/24/20 06:50 Active 4 mg IVPUSH Q8H PRN Piperacillin/Tazobactam [Piperacil-Tazobact] 4.5 gm Med 02/24/20 08:00 Ordered Sodium Chloride 0.9% [Normal Saline] 100 ml IV Q8H Isolation [COMM] Routine Oth 02/23/20 21:41 Ordered Code Status [Resuscitation Status] Routine Resus Stat 02/24/20 06:54 Ordered Medication Orders Aspirin (Aspirin) 81 mg PO DAILY NICK Benzonatate (Tessalon Perles) 100 mg PO Q8H PRN PRN Reason: Cough Hydromorphone HCl (Dilaudid) 1 mg IVPUSH Q2H PRN PRN Reason: Pain Last Admin: 02/24/20 02:57 Dose: 1 mg Documented by: DEEPAROB Lactated Ringer's (Ringers, Lactated) 1,000 mls @ 125 mls/hr IV ASDIRECTED NICK Piperacillin Sod/Tazobactam (Sod 4.5 gm/ Sodium Chloride) 100 mls @ 25 mls/hr IV Q8H NICK Stop: 02/27/20 23:59 Multivitamins (Thera) 1 each PO DAILY [facility] Non-Formulary Medication (Olmesartan Medoxomil) 20 mg PO DAILY NICK Ondansetron HCl (Zofran) 4 mg IVPUSH Q8H PRN PRN Reason: Nausea/Vomiting Vit A/Vit C/Vit E/Selen/Cu/Zn/Lutei (Icaps Mv) 1 tab PO DAILY [facility] Assessment/Plan Comment:: 65 y/o male with continued COVID symptoms, also with acute appendicitis - will treat with antibiotics due to continued COVID symptoms and CT lung changes - clear liquid diet - IVF rehydration - DVT PPX: ambulation with assist, SCDs, heparin subQ Will continue to monitor abdominal exam. If continues to improve on exam, will do appendectomy as an outpatient. Shanell Marcus MD General surgery - Mortality Measure Prognosis:: Good
[2020-02-24] MEDS ORDERED: Aspirin 81 MG Tab.Chew PO SCH (09:00)
[2020-02-24] MEDS: Piperacillin/Tazobactam 4.5 GM in Sodium Chloride 0.9% 100 ML IV SCH ×3 (09:57→23:30)
[2020-02-24] MEDS: Multivitamins with Minerals/Folic Acid/Lutein/Zeaxanth Tab PO SCH (09:58)
[2020-02-24] MEDS: Multivitamins,Therapeutic Tab PO SCH (09:58)
[2020-02-24] MEDS: Lactated Ringers 1,000 ML IV SCH ×2 (10:01→21:12)
[2020-02-24] MEDS: Heparin Sodium 5,000 Units/ML Vial SUBCUT SCH ×2 (12:34→23:30)
[2020-02-24] MEDS: OLMESARTAN MEDOXOMIL 20 MG PO SCH (12:34)
[2020-02-25] MEDS: HYDROmorphone 1 MG/ML Syringe IVPUSH PRN (03:15)
[2020-02-25] MEDS: Multivitamins with Minerals/Folic Acid/Lutein/Zeaxanth Tab PO SCH (08:02)
[2020-02-25] MEDS: Aspirin 81 MG Tab.EC PO SCH (08:02)
[2020-02-25] MEDS: Multivitamins,Therapeutic Tab PO SCH (08:02)
[2020-02-25] MEDS: Piperacillin/Tazobactam 4.5 GM in Sodium Chloride 0.9% 100 ML IV SCH ×3 (08:05→23:40)
[2020-02-25] MEDS ORDERED: Acetaminophen/HYDROcodone 325-5 MG Tab PO PRN (09:30)
--- NOTE | 2020-02-25 09:36 | PCM.SURGPN ---
- General Info Date of Service: 02/25/20 Admission Diagnosis/Problem: Appendicitis Functional Status: Reports: Pain Controlled, Tolerating Diet, Ambulating, Urinating - Patient Data Vitals - Most Recent: Last Vital Signs Temp 36.8 C 02/25/20 08:05 Pulse 79 02/25/20 08:05 Resp 16 02/25/20 08:05 BP 118/69 02/25/20 08:05 Pulse Ox 94 L 02/25/20 08:05 Weight - Most Recent: 116.573 kg I&O - Last 24 Hours: Intake & Output 02/24/20 02/25/20 02/25/20 22:59 06:59 14:59 Intake Total 2467 1198 Output Total 1250 1400 Balance 1217 -202 Lab Results Last 24 Hrs: Laboratory Results - last 24 hr 02/25/20 02/25/20 Range/Units 04:30 04:30 WBC 18.72 H (4.23-9.07) K/mm3 RBC 4.41 L (4.63-6.08) M/mm3 Hgb 12.6 L D (13.7-17.5) gm/dl Hct 39.4 L (40.1-51.0) % MCV 89.3 (79.0-92.2) fl MCH 28.6 (25.7-32.2) pg MCHC 32.0 L (32.2-35.5) g/dl RDW Std Deviation 44.3 H (35.1-43.9) fL Plt Count 287 (163-337) K/mm3 MPV 9.4 (9.4-12.3) fl Neut % (Auto) 88.4 H (34.0-67.9) % Lymph % (Auto) 4.7 L (21.8-53.1) % Nelson % (Auto) 5.4 (5.3-12.2) % Eos % (Auto) 0.8 (0.8-7.0) Baso % (Auto) 0.1 (0.1-1.2) % Neut # (Auto) 16.55 H (1.78-5.38) K/mm3 Lymph # (Auto) 0.88 L (1.32-3.57) K/mm3 Nelson # (Auto) 1.02 H (0.30-0.82) K/mm3 Eos # (Auto) 0.15 (0.04-0.54) K/mm3 Baso # (Auto) 0.01 (0.01-0.08) K/mm3 Manual Slide Review Normal smear Sodium 139 (136-145) mEq/L Potassium 4.2 (3.5-5.1) mEq/L Chloride 105 (98-107) mEq/L Carbon Dioxide 25 (21-32) mEq/L Anion Gap 13.2 (5-15) BUN 27 H (7-18) mg/dL Creatinine 2.0 H (0.7-1.3) mg/dL Est Cr Clr Drug Dosing 42.24 mL/min Estimated GFR (MDRD) 34 (>60) mL/min BUN/Creatinine Ratio 13.5 L (14-18) Glucose 114 (80-115) mg/dL Calcium 8.0 L (8.5-10.1) mg/dL Med Orders - Current: Current Medications Hydrocodone Bitart/Acetaminophen (Slater 325-5 Mg) 1 tab PO Q4H PRN PRN Reason: Abdominal Pain Aspirin (Halfprin) 81 mg PO DAILY [facility] Last Admin: 02/25/20 08:02 Dose: 81 mg Documented by: Benzonatate (Tessalon Perles) 100 mg PO Q8H PRN PRN Reason: Cough Heparin Sodium (Porcine) (Heparin Sodium) 5,000 units SUBCUT Q12H [facility] Last Admin: 02/24/20 23:30 Dose: 5,000 units Documented by: Hydromorphone HCl (Dilaudid) 1 mg IVPUSH Q2H PRN PRN Reason: Pain Last Admin: 02/25/20 03:15 Dose: 1 mg Documented by: Piperacillin Sod/Tazobactam (Sod 4.5 gm/ Sodium Chloride) 100 mls @ 25 mls/hr IV Q8H [facility] Stop: 02/27/20 23:59 Last Admin: 02/25/20 08:05 Dose: 25 mls/hr Documented by: Magnesium Sulfate (Magnesium Sulfate In Water Premix) 2 gm in 50 mls @ 25 mls/hr IV Q1H [facility] Multivitamins (Thera) 1 each PO DAILY [facility] Last Admin: 02/25/20 08:02 Dose: 1 each Documented by: Olmesartan Medoxomil (20 Mg Ptom) 0 mg PO DAILY [facility] Last Admin: 02/24/20 12:34 Dose: 20 mg Documented by: Ondansetron HCl (Zofran) 4 mg IVPUSH Q8H PRN PRN Reason: Nausea/Vomiting Polyethylene Glycol (Miralax) 17 gm PO DAILY [facility] Vit A/Vit C/Vit E/Selen/Cu/Zn/Lutei (Icaps Mv) 1 tab PO DAILY [facility] Last Admin: 02/25/20 08:02 Dose: 1 tab Documented by: Discontinued Medications Aspirin (Aspirin) 81 mg PO DAILY [facility] Last Admin: 02/24/20 09:58 Dose: 81 mg Documented by: Diatrizoate Meglum/Diatrizoate Sod (Gastrografin 37%) 120 ml PO ONETIME ONE Stop: 02/23/20 23:42 Last Admin: 02/23/20 23:42 Dose: 120 ml Documented by: Hydromorphone HCl (Dilaudid) 1 mg IVPUSH ONETIME ONE Stop: 02/23/20 21:36 Last Admin: 02/23/20 21:55 Dose: 1 mg Documented by: Sodium Chloride (Normal Saline) 1,000 mls @ 150 mls/hr IV ASDIRECTED [facility] Stop: 02/23/20 23:59 Last Admin: 02/23/20 21:52 Dose: 150 mls/hr Documented by: Piperacillin Sod/Tazobactam (Sod 4.5 gm/ Sodium Chloride) 100 mls @ 200 mls/hr IV ONETIME ONE Stop: 02/24/20 00:28 Last Admin: 02/24/20 00:20 Dose: 200 mls/hr Documented by: Lactated Ringer's (Ringers, Lactated) 1,000 mls @ 125 mls/hr IV ASDIRECTED [facility] Last Admin: 02/24/20 00:21 Dose: 125 mls/hr Documented by: Lactated Ringer's (Ringers, Lactated) 1,000 mls @ 125 mls/hr IV ASDIRECTED [facility] Last Admin: 02/24/20 21:12 Dose: 125 mls/hr Documented by: Iopamidol (Isovue-300 (61%)) 100 ml IVPUSH ONETIME ONE Stop: 02/23/20 23:42 Last Admin: 02/23/20 23:42 Dose: 100 ml Documented by: Ondansetron HCl (Zofran) 4 mg IVPUSH ONETIME ONE Stop: 02/23/20 21:37 Last Admin: 02/23/20 21:55 Dose: 4 mg Documented by: Sodium Chloride (Saline Flush) 10 ml FLUSH ONETIME ONE Stop: 02/23/20 23:42 Last Admin: 02/23/20 23:43 Dose: 10 ml Documented by: - Exam Quality Assessment: Supplemental Oxygen General: Alert, Oriented HEENT: Pupils Equal, EOMI Neck: Supple Lungs: Normal Respiratory Effort Cardiovascular: Regular Rate, Regular Rhythm GI/Abdominal Exam: Soft, Guarding (in RLQ), Tender (in RLQ and mild in RUQ) Sepsis Event Note - Evaluation Sepsis Screening Result: No Definite Risk - Focused Exam Vital Signs: Vital Signs Temp Pulse Resp BP Pulse Ox Pulse Ox 02/25/20 08:05 36.8 C 79 16 118/69 94 L 02/25/20 05:16 93 L 02/25/20 03:16 36.7 C 84 20 137/66 93 L 02/24/20 23:31 85 94 L - Problem List & Annotations (1) Acute appendicitis SNOMED Code(s): 14131308 Code(s): K35.80 - UNSPECIFIED ACUTE APPENDICITIS Status: Acute Current Visit: Yes (2) COVID-19 SNOMED Code(s): 129003529 Code(s): U07.1 - COVID-19 Status: Acute Current Visit: Yes (3) Chronic renal insufficiency SNOMED Code(s): 440477516 Code(s): N18.9 - CHRONIC KIDNEY DISEASE, UNSPECIFIED Status: Acute Current Visit: Yes - Problem List Review Problem List Initiated/Reviewed/Updated: Yes - My Orders Last 24 Hours: Active Orders 24 hr Category Date Time Status Admission Status [Patient Status] [ADT] Routine ADT 02/24/20 20:05 Active Antiembolic Devices [RC] BID Care 02/24/20 10:22 Active RT Incentive Spirometry [RC] Q1HWA Care 02/25/20 09:30 Ordered BASIC METABOLIC PANEL,BMP [CHEM] AM Lab 02/26/20 05:11 Ordered BASIC METABOLIC PANEL,BMP [CHEM] AM Lab 02/27/20 05:11 Ordered BASIC METABOLIC PANEL,BMP [CHEM] AM Lab 02/28/20 05:11 Ordered CBC W/O DIFF,HEMOGRAM [HEME] MOTH@0700 Lab 02/27/20 07:00 Ordered CBC W/O DIFF,HEMOGRAM [HEME] MOTH@0700 Lab 03/02/20 07:00 Ordered CBC W/O DIFF,HEMOGRAM [HEME] MOTH@0700 Lab 03/05/20 07:00 Ordered CBC W/O DIFF,HEMOGRAM [HEME] MOTH@0700 Lab 03/09/20 07:00 Ordered CBC W/O DIFF,HEMOGRAM [HEME] MOTH@0700 Lab 03/12/20 07:00 Ordered CBC W/O DIFF,HEMOGRAM [HEME] MOTH@0700 Lab 03/16/20 07:00 Ordered CBC WITH AUTO DIFF [HEME] AM Lab 02/26/20 05:11 Ordered CBC WITH AUTO DIFF [HEME] AM Lab 02/27/20 05:11 Ordered CBC WITH AUTO DIFF [HEME] AM Lab 02/28/20 05:11 Ordered MAGNESIUM [CHEM] Routine Lab 02/25/20 09:30 Ordered Acetaminophen/HYDROcodone [Slater 325-5 MG] Med 02/25/20 09:30 Ordered 1 tab PO Q4H PRN Aspirin [Halfprin] Med 02/25/20 09:00 Active 81 mg PO DAILY Heparin Sodium Med 02/24/20 10:30 Active 5,000 units SUBCUT Q12H Magnesium Sulfate 2 GM in Water @ 25 MLS/HR (50ml) Med 02/25/20 09:30 Ordered Magnesium Sulfate/Water [Magnesium Sulfate in Water Premix] 2 gm in 50 ml IV Q1H Multivitamins,Therapeutic [Thera] Med 02/24/20 09:00 Active 1 each PO DAILY Multivitamins/Min/FA/Lut/Zeax [ICaps MV] Med 02/24/20 09:00 Active 1 tab PO DAILY Olmesartan Medoxomil Med 02/24/20 09:00 Active 0 mg PO DAILY polyethylene glycoL 3350 [MiraLAX] Med 02/25/20 09:30 Ordered 17 gm PO DAILY Sequential Compression Device [OM.PC] Routine Oth 02/24/20 10:22 Ordered Medication Orders Hydrocodone Bitart/Acetaminophen (Slater 325-5 Mg) 1 tab PO Q4H PRN PRN Reason: Abdominal Pain Aspirin (Halfprin) 81 mg PO DAILY [facility] Last Admin: 02/25/20 08:02 Dose: 81 mg Documented by: MORGAN Benzonatate (Tessalon Perles) 100 mg PO Q8H PRN PRN Reason: Cough Heparin Sodium (Porcine) (Heparin Sodium) 5,000 units SUBCUT Q12H [facility] Last Admin: 02/24/20 23:30 Dose: 5,000 units Documented by: Admin: 02/24/20 12:34 Dose: 5,000 units Documented by: CONSUELO Hydromorphone HCl (Dilaudid) 1 mg IVPUSH Q2H PRN PRN Reason: Pain Last Admin: 02/25/20 03:15 Dose: 1 mg Documented by: Admin: 02/24/20 02:57 Dose: 1 mg Documented by: CHIKA Piperacillin Sod/Tazobactam (Sod 4.5 gm/ Sodium Chloride) 100 mls @ 25 mls/hr IV Q8H [facility] Stop: 02/27/20 23:59 Last Admin: 02/25/20 08:05 Dose: 25 mls/hr Documented by: Infusion: 02/25/20 03:30 Dose: 25 mls/hr Documented by: Admin: 02/24/20 23:30 Dose: 25 mls/hr Documented by: Infusion: 02/24/20 19:47 Dose: 25 mls/hr Documented by: Admin: 02/24/20 15:47 Dose: 25 mls/hr Documented by: Infusion: 02/24/20 13:57 Dose: 25 mls/hr Documented by: Admin: 02/24/20 09:57 Dose: 25 mls/hr Documented by: CONSUELO Magnesium Sulfate (Magnesium Sulfate In Water Premix) 2 gm in 50 mls @ 25 mls/hr IV Q1H [facility] Multivitamins (Thera) 1 each PO DAILY [facility] Last Admin: 02/25/20 08:02 Dose: 1 each Documented by: Admin: 02/24/20 09:58 Dose: 1 each Documented by: CONSUELO Olmesartan Medoxomil (20 Mg Ptom) 0 mg PO DAILY [facility] Last Admin: 02/24/20 12:34 Dose: 20 mg Documented by: CONSUELO Ondansetron HCl (Zofran) 4 mg IVPUSH Q8H PRN PRN Reason: Nausea/Vomiting Polyethylene Glycol (Miralax) 17 gm PO DAILY [facility] Vit A/Vit C/Vit E/Selen/Cu/Zn/Lutei (Icaps Mv) 1 tab PO DAILY [facility] Last Admin: 02/25/20 08:02 Dose: 1 tab Documented by: Admin: 02/24/20 09:58 Dose: 1 tab Documented by: CONSUELO - Assessment Assessment (Free Text/Narrative):: 65 y/o gentleman with acute appendicitis treated with antibiotics due to ongoing COVID symptoms. Pain improved - Plan Plan (Free Text/Narrative):: - attempt weaning of supplemental O2 today as tolerated - start incentive spirometry q1h - continue Zosyn - may have Slater for pain, dilaudid for breakthrough as needed. - d/c IVF since pt tolerating PO well - Mag sulfate 2g IV x1 - DVT PPX: continue heparin, SCDs and ambulation - continue clear liquid diet until pain more improved Shanell Marcus MD General surgery
[2020-02-25] MEDS ORDERED: Magnesium Sulfate/Water 2 GM/50 ML BAG IV ONE (10:00)
[2020-02-25] MEDS: Heparin Sodium 5,000 Units/ML Vial SUBCUT SCH ×2 (10:05→23:40)
[2020-02-25] MEDS: Polyethylene Glycol 3350 Powder 17 GM Packet PO SCH (10:06)
[2020-02-25] MEDS: OLMESARTAN MEDOXOMIL 20 MG PO SCH (10:16)
--- NOTE | 2020-02-26 08:29 | PCM.SURGPN ---
- General Info Date of Service: 02/26/20 Admission Diagnosis/Problem: Acute appendicitis Functional Status: Reports: Pain Controlled, Tolerating Diet, Ambulating, Urinating, Incentive Spirometry - Patient Data Vitals - Most Recent: Last Vital Signs Temp 36.6 C 02/26/20 03:52 Pulse 88 02/26/20 03:52 Resp 20 02/26/20 03:52 BP 136/77 02/26/20 03:52 Pulse Ox 93 L 02/26/20 03:52 Weight - Most Recent: 117.707 kg I&O - Last 24 Hours: Intake & Output 02/25/20 02/26/20 02/26/20 22:59 06:59 14:59 Intake Total 950 400 Balance 950 400 Lab Results Last 24 Hrs: Laboratory Results - last 24 hr 02/25/20 02/26/20 02/26/20 Range/Units 04:30 04:50 04:50 WBC 13.61 H (4.23-9.07) K/mm3 RBC 4.47 L (4.63-6.08) M/mm3 Hgb 12.8 L (13.7-17.5) gm/dl Hct 39.5 L (40.1-51.0) % MCV 88.4 (79.0-92.2) fl MCH 28.6 (25.7-32.2) pg MCHC 32.4 (32.2-35.5) g/dl RDW Std Deviation 43.8 (35.1-43.9) fL Plt Count 324 (163-337) K/mm3 MPV 9.5 (9.4-12.3) fl Neut % (Auto) 84.9 H (34.0-67.9) % Lymph % (Auto) 6.7 L (21.8-53.1) % [place] % (Auto) 7.2 (5.3-12.2) % Eos % (Auto) 0.7 L (0.8-7.0) Baso % (Auto) 0.1 (0.1-1.2) % Neut # (Auto) 11.55 H (1.78-5.38) K/mm3 Lymph # (Auto) 0.91 L (1.32-3.57) K/mm3 [place] # (Auto) 0.98 H (0.30-0.82) K/mm3 Eos # (Auto) 0.10 (0.04-0.54) K/mm3 Baso # (Auto) 0.01 (0.01-0.08) K/mm3 Manual Slide Review Abnormal smear Sodium 137 (136-145) mEq/L Potassium 4.1 (3.5-5.1) mEq/L Chloride 104 (98-107) mEq/L Carbon Dioxide 25 (21-32) mEq/L Anion Gap 12.1 (5-15) BUN 26 H (7-18) mg/dL Creatinine 2.0 H (0.7-1.3) mg/dL Est Cr Clr Drug Dosing 42.24 mL/min Estimated GFR (MDRD) 34 (>60) mL/min BUN/Creatinine Ratio 13.0 L (14-18) Glucose 113 (80-115) mg/dL Calcium 8.2 L (8.5-10.1) mg/dL Magnesium 1.8 2.0 (1.8-2.4) mg/dl Med Orders - Current: Current Medications Hydrocodone Bitart/Acetaminophen (Drake 325-5 Mg) 1 tab PO Q4H PRN PRN Reason: Abdominal Pain Aspirin (Halfprin) 81 mg PO DAILY [facility] Last Admin: 02/25/20 08:02 Dose: 81 mg Documented by: Benzonatate (Tessalon Perles) 100 mg PO Q8H PRN PRN Reason: Cough Heparin Sodium (Porcine) (Heparin Sodium) 5,000 units SUBCUT Q12H [facility] Last Admin: 02/25/20 23:40 Dose: 5,000 units Documented by: Hydromorphone HCl (Dilaudid) 1 mg IVPUSH Q2H PRN PRN Reason: Pain Last Admin: 02/25/20 03:15 Dose: 1 mg Documented by: Piperacillin Sod/Tazobactam (Sod 4.5 gm/ Sodium Chloride) 100 mls @ 25 mls/hr IV Q8H [facility] Stop: 02/27/20 23:59 Last Admin: 02/25/20 23:40 Dose: 25 mls/hr Documented by: Losartan Potassium (Cozaar) 50 mg PO DAILY [facility] Multivitamins (Thera) 1 each PO DAILY [facility] Last Admin: 02/25/20 08:02 Dose: 1 each Documented by: Ondansetron HCl (Zofran) 4 mg IVPUSH Q8H PRN PRN Reason: Nausea/Vomiting Polyethylene Glycol (Miralax) 17 gm PO DAILY [facility] Last Admin: 02/25/20 10:06 Dose: 17 gm Documented by: Vit A/Vit C/Vit E/Selen/Cu/Zn/Lutei (Icaps Mv) 1 tab PO DAILY [facility] Last Admin: 02/25/20 08:02 Dose: 1 tab Documented by: Discontinued Medications Aspirin (Aspirin) 81 mg PO DAILY [facility] Last Admin: 02/24/20 09:58 Dose: 81 mg Documented by: Diatrizoate Meglum/Diatrizoate Sod (Gastrografin 37%) 120 ml PO ONETIME ONE Stop: 02/23/20 23:42 Last Admin: 02/23/20 23:42 Dose: 120 ml Documented by: Hydromorphone HCl (Dilaudid) 1 mg IVPUSH ONETIME ONE Stop: 02/23/20 21:36 Last Admin: 02/23/20 21:55 Dose: 1 mg Documented by: Sodium Chloride (Normal Saline) 1,000 mls @ [facility] Stop: 02/23/20 23:59 Last Admin: 02/23/20 21:52 Dose: 150 mls/hr Documented by: Piperacillin Sod/Tazobactam (Sod 4.5 gm/ Sodium Chloride) 100 mls @ 200 mls/hr IV ONETIME ONE Stop: 02/24/20 00:28 Last Admin: 02/24/20 00:20 Dose: 200 mls/hr Documented by: Lactated Ringer's (Ringers, Lactated) 1,000 mls @ 125 [facility]ls[facility] Last Admin: 02/24/20 00:21 Dose: 125 mls/hr Documented by: Lactated Ringer's (Ringers, Lactated) 1,000 mls @ 125 [facility]ls[facility]hr [facility] Last Admin: 02/24/20 21:12 Dose: 125 mls/hr Documented by: Magnesium Sulfate (Magnesium Sulfate In Water Premix) 2 gm in 50 mls @ 25 mls/hr IV ONETIME ONE Stop: 02/25/20 11:59 Last Admin: 02/25/20 12:16 Dose: 25 mls/hr Documented by: Iopamidol (Isovue-300 (61%)) 100 ml IVPUSH ONETIME ONE Stop: 02/23/20 23:42 Last Admin: 02/23/20 23:42 Dose: 100 ml Documented by: Olmesartan Medoxomil (20 Mg Ptom) 0 mg PO DAILY [facility] Last Admin: 02/25/20 10:16 Dose: 20 mg Documented by: Ondansetron HCl (Zofran) 4 mg IVPUSH ONETIME ONE Stop: 02/23/20 21:37 Last Admin: 02/23/20 21:55 Dose: 4 mg Documented by: Sodium Chloride (Saline Flush) 10 ml FLUSH ONETIME ONE Stop: 02/23/20 23:42 Last Admin: 02/23/20 23:43 Dose: 10 ml Documented by: - Exam Quality Assessment: Supplemental Oxygen General: Alert, Oriented HEENT: Pupils Equal, EOMI Neck: Supple GI/Abdominal Exam: Soft, No Distention, Tender (in RLQ) Sepsis Event Note - Evaluation Sepsis Screening Result: No Definite Risk - Focused Exam Vital Signs: Vital Signs Temp Pulse Resp BP Pulse Ox 02/26/20 03:52 36.6 C 88 20 136/77 93 L 02/25/20 23:38 95 93 L 02/25/20 20:56 36.6 C 106 H 20 150/76 H 92 L - Problem List & Annotations (1) Acute appendicitis SNOMED Code(s): 88298864 Code(s): K35.80 - UNSPECIFIED ACUTE APPENDICITIS Status: Acute Current Visit: Yes (2) COVID-19 SNOMED Code(s): 051219713 Code(s): U07.1 - COVID-19 Status: Acute Current Visit: Yes (3) Chronic renal insufficiency SNOMED Code(s): 968560508 Code(s): N18.9 - CHRONIC KIDNEY DISEASE, UNSPECIFIED Status: Acute Current Visit: Yes - Problem List Review Problem List Initiated/Reviewed/Updated: Yes - My Orders Last 24 Hours: Active Orders 24 hr Category Date Time Status Evaluate for Home Oxygen [RT Evaluate for Home Oxygen] Care 02/26/20 08:06 Active [RC] Click to Edit RT Incentive Spirometry [RC] Q1HWA Care 02/25/20 09:30 Active Regular Diet [DIET] Diet 02/26/20 Dinner Active BASIC METABOLIC PANEL,BMP [CHEM] AM Lab 02/27/20 05:11 Ordered BASIC METABOLIC PANEL,BMP [CHEM] AM Lab 02/28/20 05:11 Ordered CBC W/O DIFF,HEMOGRAM [HEME] MOTH@0700 Lab 02/27/20 07:00 Ordered CBC W/O DIFF,HEMOGRAM [HEME] MOTH@699 Lab 03/02/20 07:00 Ordered CBC W/O DIFF,HEMOGRAM [HEME] MOTH@699 Lab 03/05/20 07:00 Ordered CBC W/O DIFF,HEMOGRAM [HEME] MOTH@699 Lab 03/09/20 07:00 Ordered CBC W/O DIFF,HEMOGRAM [HEME] MOTH@699 Lab 03/12/20 07:00 Ordered CBC W/O DIFF,HEMOGRAM [HEME] MOTH@00 Lab 03/16/20 07:00 Ordered CBC WITH AUTO DIFF [HEME] AM Lab 02/27/20 05:11 Ordered CBC WITH AUTO DIFF [HEME] AM Lab 02/28/20 05:11 Ordered Acetaminophen/HYDROcodone [Drake 325-5 MG] Med 02/25/20 09:30 Active 1 tab PO Q4H PRN Aspirin [Halfprin] Med 02/25/20 09:00 Active 81 mg PO DAILY Losartan [Cozaar] Med 02/26/20 09:00 Active 50 mg PO DAILY polyethylene glycoL 3350 [MiraLAX] Med 02/25/20 09:30 Active 17 gm PO DAILY Medication Orders Hydrocodone Bitart/Acetaminophen (Drake 325-5 Mg) 1 tab PO Q4H PRN PRN Reason: Abdominal Pain Aspirin (Halfprin) 81 mg PO DAILY [facility] Last Admin: 02/25/20 08:02 Dose: 81 mg Documented by: EAMA Benzonatate (Tessalon Perles) 100 mg PO Q8H PRN PRN Reason: Cough Heparin Sodium (Porcine) (Heparin Sodium) 5,000 units SUBCUT Q12H [facility] Last Admin: 02/25/20 23:40 Dose: 5,000 units Documented by: Admin: 02/25/20 10:05 Dose: 5,000 units Documented by: Admin: 02/24/20 23:30 Dose: 5,000 units Documented by: Admin: 02/24/20 12:34 Dose: 5,000 units Documented by: CONSUELO Hydromorphone HCl (Dilaudid) 1 mg IVPUSH Q2H PRN PRN Reason: Pain Last Admin: 02/25/20 03:15 Dose: 1 mg Documented by: Admin: 02/24/20 02:57 Dose: 1 mg Documented by: CHIKA Piperacillin Sod/Tazobactam (Sod 4.5 gm/ Sodium Chloride) 100 mls @ 25 mls/hr IV Q8H [facility] Stop: 02/27/20 23:59 Last Admin: 02/25/20 23:40 Dose: 25 mls/hr Documented by: Infusion: 02/25/20 21:20 Dose: 25 mls/hr Documented by: Admin: 02/25/20 17:20 Dose: 25 mls/hr Documented by: Infusion: 02/25/20 12:05 Dose: 25 mls/hr Documented by: Admin: 02/25/20 08:05 Dose: 25 mls/hr Documented by: Infusion: 02/25/20 03:30 Dose: 25 mls/hr Documented by: Admin: 02/24/20 23:30 Dose: 25 mls/hr Documented by: Infusion: 02/24/20 19:47 Dose: 25 mls/hr Documented by: Admin: 02/24/20 15:47 Dose: 25 mls/hr Documented by: Infusion: 02/24/20 13:57 Dose: 25 mls/hr Documented by: Admin: 02/24/20 09:57 Dose: 25 mls/hr Documented by: CONSUELO Losartan Potassium (Cozaar) 50 mg PO DAILY [facility] Multivitamins (Thera) 1 each PO DAILY [facility] Last Admin: 02/25/20 08:02 Dose: 1 each Documented by: Admin: 02/24/20 09:58 Dose: 1 each Documented by: CONSUELO Ondansetron HCl (Zofran) 4 mg IVPUSH Q8H PRN PRN Reason: Nausea/Vomiting Polyethylene Glycol (Miralax) 17 gm PO DAILY [facility] Last Admin: 02/25/20 10:06 Dose: 17 gm Documented by: MORGAN Vit A/Vit C/Vit E/Selen/Cu/Zn/Lutei (Icaps Mv) 1 tab PO DAILY [facility] Last Admin: 02/25/20 08:02 Dose: 1 tab Documented by: Admin: 02/24/20 09:58 Dose: 1 tab Documented by: CONSUELO - Assessment Assessment (Free Text/Narrative):: 65 y/o gentleman with acute appendicitis, ongoing COVID symptoms - Plan Plan (Free Text/Narrative):: - continue antibiotics. Appendicitis improved - will obtain a medicine consult for COVID management - continue incentive spirometry - O2 evaluation for home oxygen - continue regular diet Shanell Marcus MD General surgery
[2020-02-26] MEDS ORDERED: Heparin Sodium 5,000 Units/ML Vial SUBCUT SCH (09:00)
[2020-02-26] MEDS: Piperacillin/Tazobactam 4.5 GM in Sodium Chloride 0.9% 100 ML IV SCH ×4 (09:28→23:22)
[2020-02-26] MEDS: Multivitamins,Therapeutic Tab PO SCH (09:29)
[2020-02-26] MEDS: Multivitamins with Minerals/Folic Acid/Lutein/Zeaxanth Tab PO SCH (09:29)
[2020-02-26] MEDS: Losartan 25 MG Tab PO SCH (09:29)
[2020-02-26] MEDS: Polyethylene Glycol 3350 Powder 17 GM Packet PO SCH ×2 (09:29→09:31)
[2020-02-26] MEDS: Aspirin 81 MG Tab.EC PO SCH (09:29)
[2020-02-26] MEDS ORDERED: Acetaminophen 325 MG Tab PO PRN (10:36)
--- NOTE | 2020-02-26 10:44 | PCM.CONS ---
H&P History of Present Illness - General Date of Service: 02/26/20 Admit Problem/Dx: Admission Diagnosis/Problem Admission Diagnosis/Problem Appendicitis - History of Present Illness Initial Comments - Free Text/Narative: Chinedu is a 65-year-old male who was diagnosed with COVID-19 on 02/07/2020. Patient started to develop symptoms a couple of days later and then several days later developed fevers up to 103 degrees. He initially was tested because his was positive. He was seen in the emergency department on 02/17/2020 with worsening of symptoms. He was afebrile and his oxygen saturations were 93% on room air. After a thorough work-up patient was sent home on dexamethasone 6 mg for total of 5 days. Patient then presented on the with stabbing right lower quadrant abdominal pain that waxed and waned. Patient was diagnosed with appendicitis admitted for IV antibiotic treatment. Patient did require overnight oxygen of 0.5 L via nasal cannula. He did complain of some shortness of breath with activity initially. Last night patient required increasing oxygen supplementation. Patient was ultimately placed on 2 L nasal cannula to keep his oxygen saturations in the low to mid 90s. Because of his worsening oxygen saturation the hospital service was consulted. Patient now states that he is more short of breath then normal. Otherwise he is feeling generally well without any other significant complaints. Right Lower Abdomen Pain Score (Numeric/FACES): 1 - Related Data Allergies/Adverse Reactions: Allergies Allergy/AdvReac Type Severity Reaction Status Date / Time azithromycin [From Zithromax] Allergy Swelling Verified 02/24/20 02:37 Home Medications: Home Meds Aspirin 81 mg PO DAILY 06/03/19 [History] B2/Vits A,C,E/Lut/Zeaxanth/Min [Icaps] 1 tab PO DAILY 06/03/19 [History] Multivitamin [Multivitamins] 1 tab PO DAILY 06/03/19 [History] Olmesartan Medoxomil [Benicar] 20 mg PO DAILY 06/03/19 [History] Benzonatate [Tessalon Perle] 100 - 200 mg PO Q8H PRN #20 capsule 02/17/20 [Rx] Non-Formulary Medication [NF Drug] 1 tab PO DAILY 02/24/20 [History] Past Medical History HEENT History: Reports: Impaired Vision, Other (See Below) Other HEENT History: wears glasses, wisdom teeth removed Cardiovascular History: Reports: Hypertension Genitourinary History: Reports: Chronic Renal Insuffiency Musculoskeletal History: Reports: Gout Endocrine/Metabolic History: Reports: Other (See Below) (Prediabetes) Other Endocrine/Metabolic History: prediabetic Oncologic (Cancer) History: Reports: Squamous Cell Carcinoma Dermatologic History: Reports: Eczema - Infectious Disease History Infectious Disease History: Reports: Chicken Pox, Measles, Mumps, Novel Coronavirus - Past Surgical History HEENT Surgical History: Reports: Oral Surgery Cardiovascular Surgical History: Reports: None Male Surgical History: Reports: Circumcision Musculoskeletal Surgical History: Reports: None Oncologic Surgical History: Reports: Other (See Below) Other Oncologic Surgeries/Procedures: skin cancer behind ear and nose Social & Family History - Family History Family Medical History: Noncontributory Cardiac: Reports: Hypertension Musculoskeletal: Reports: Other (See Below) (scoliosis) - Tobacco Use Tobacco Use Status *Q: Never Tobacco User Second Hand Smoke Exposure: No - Caffeine Use Caffeine Use: Reports: Coffee, Soda Other Caffeine Use: one can pop a day and 1-2 cups of coffee - Recreational Drug Use Recreational Drug Use: No - Living Situation & Occupation Living situation: Reports: , with Spouse, with Family (Son) 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 Exam - Exam Exam: See Below - Vital Signs Vital Signs: Last Vital Signs Temp 98.6 F 02/26/20 09:00 Pulse 89 02/26/20 09:00 Resp 18 02/26/20 09:00 BP 143/81 H 02/26/20 09:29 Pulse Ox 91 L 02/26/20 09:00 Weight: 117.707 kg - Exam Quality Assessment: Supplemental Oxygen General: Alert, Oriented, 4 HEENT: Conjunctiva Clear, Hearing Intact, Mucosa Moist & [place] Neck: Supple, Trachea Midline, 2 Lungs: Clear to Auscultation. No: Normal Respiratory Effort (Increased respiratory rate) Cardiovascular: Regular Rate, Regular Rhythm GI/Abdominal Exam: Normal Bowel Sounds, Soft, No Organomegaly, No Distention, No Abnormal Bruit, No Mass, Tender (Minimal right-sided tenderness) Back Exam: Normal Inspection Extremities: Normal Inspection, Normal Range of Motion, Non-Tender, No Pedal Edema, Normal Capillary Refill Peripheral Pulses: 2+: Posterior Tibial (L), Posterior Tibial (R), Dorsalis Pedis (L), Dorsalis Pedis (R) Skin: Warm, Dry, Intact Neurological: Cranial Nerves Intact Psychiatric: Alert, Normal Affect, Normal Mood - Patient Data Lab Results Last 24 hrs: Laboratory Results - last 24 hr 02/26/20 02/26/20 Range/Units 04:50 04:50 WBC 13.61 H (4.23-9.07) K/mm3 RBC 4.47 L (4.63-6.08) M/mm3 Hgb 12.8 L (13.7-17.5) gm/dl Hct 39.5 L (40.1-51.0) % MCV 88.4 (79.0-92.2) fl MCH 28.6 (25.7-32.2) pg MCHC 32.4 (32.2-35.5) g/dl RDW Std Deviation 43.8 (35.1-43.9) fL Plt Count 324 (163-337) K/mm3 MPV 9.5 (9.4-12.3) fl Neut % (Auto) 84.9 H (34.0-67.9) % Lymph % (Auto) 6.7 L (21.8-53.1) % [place] % (Auto) 7.2 (5.3-12.2) % Eos % (Auto) 0.7 L (0.8-7.0) Baso % (Auto) 0.1 (0.1-1.2) % Neut # (Auto) 11.55 H (1.78-5.38) K/mm3 Lymph # (Auto) 0.91 L (1.32-3.57) K/mm3 [place] # (Auto) 0.98 H (0.30-0.82) K/mm3 Eos # (Auto) 0.10 (0.04-0.54) K/mm3 Baso # (Auto) 0.01 (0.01-0.08) K/mm3 Manual Slide Review Abnormal smear Sodium 137 (136-145) mEq/L Potassium 4.1 (3.5-5.1) mEq/L Chloride 104 (98-107) mEq/L Carbon Dioxide 25 (21-32) mEq/L Anion Gap 12.1 (5-15) BUN 26 H (7-18) mg/dL Creatinine 2.0 H (0.7-1.3) mg/dL Est Cr Clr Drug Dosing 42.24 mL/min Estimated GFR (MDRD) 34 (>60) mL/min BUN/Creatinine Ratio 13.0 L (14-18) Glucose 113 (80-115) mg/dL Calcium 8.2 L (8.5-10.1) mg/dL Magnesium 2.0 (1.8-2.4) mg/dl Result Diagrams: 02/26/20 04:50 02/26/20 04:50 Imaging Impressions Last 24 hrs: Chest x-ray shows bilateral groundglass pattern consistent with viral pneumonia. It does appear to be improved from previous chest x-ray on 02/17/2020 Sepsis Event Note - Evaluation Sepsis Screening Result: No Definite Risk - Focused Exam Vital Signs: Vital Signs Temp Temp Pulse Pulse Resp BP BP 02/26/20 09:29 143/81 H 02/26/20 09:00 98.6 F 89 18 143/81 H 02/26/20 03:52 97.9 F 88 20 136/77 02/25/20 23:38 95 Pulse Ox 02/26/20 09:29 02/26/20 09:00 91 L 02/26/20 03:52 93 L 02/25/20 23:38 93 L Consult PN Assessment/Plan Procedures: Procedures ASSAY OF FERRITIN (02/17/20) ASSAY OF NATRIURETIC PEPTIDE (02/17/20) ASSAY OF TROPONIN QUANT (02/17/20) C-REACTIVE PROTEIN (02/17/20) COMPLETE CBC W/AUTO DIFF WBC (02/17/20) COMPREHEN METABOLIC PANEL (02/17/20) ELECTROCARDIOGRAM TRACING (02/17/20) EMERGENCY DEPT VISIT (02/17/20) EMERGENCY DEPT VISIT (06/03/19) FIBRIN DEGRADATION QUANT (02/17/20) GLYCOSYLATED HEMOGLOBIN TEST (04/03/17) LACTATE (LD) (LDH) ENZYME (02/17/20) LIPID PANEL (09/30/16) MRI BRAIN STEM W/O DYE (05/30/19) ROUTINE VENIPUNCTURE (02/17/20) UR ALBUMIN QUANTITATIVE (04/03/17) URINALYSIS AUTO W/O SCOPE (09/30/16) X-RAY EXAM CHEST 1 VIEW (02/17/20) X-RAY EXAM UNILAT RIBS/CHEST (06/03/19) (1) Acute appendicitis SNOMED Code(s): 59365721 Code(s): K35.80 - UNSPECIFIED ACUTE APPENDICITIS Current Visit: Yes (2) COVID-19 SNOMED Code(s): 019930551 Code(s): U07.1 - COVID-19 Current Visit: Yes (3) Chronic renal insufficiency SNOMED Code(s): 452832324 Code(s): N18.9 - CHRONIC KIDNEY DISEASE, UNSPECIFIED Current Visit: Yes (4) Pneumonia due to COVID-19 virus SNOMED Code(s): 628996714275711737 Code(s): U07.1 - COVID-19; J12.89 - OTHER VIRAL PNEUMONIA Current Visit: No Problem List Initiated/Reviewed/Updated: Yes My Orders Last 24 Hours: My Active Orders 02/26/20 10:16 Consult to Physician [CONS] Routine 02/26/20 10:22 Notify Provider Consults [RC] ASDIRECTED 02/26/20 10:24 Pulse Oximetry Continuous Monitoring [OM.PC] Routine 02/26/20 10:28 Patient Status [ADT] Routine 02/26/20 10:36 RT Incentive Spirometry [RC] ASDIRECTED C-REACTIVE PROTEIN [CHEM] Stat D-DIMER QUANTITATIVE [COAG] Stat FERRITIN [CHEM] Routine PROCALCITONIN [REF] Stat Acetaminophen [TylenoL] 650 mg PO Q4H PRN Remdesivir (Eua) [Remdesivir (EUA)] 200 mg Sodium Chloride 0.9% [Normal Saline] 250 ml IV ONETIME RT Acapella [RESPCARE] Routine 02/26/20 10:39 Chest 1V Frontal [CR] Routine 02/26/20 10:45 dexAMETHasone 6 mg PO DAILY 02/27/20 09:00 Remdesivir (Eua) [Remdesivir (EUA)] 100 mg Sodium Chloride 0.9% [Normal Saline] 100 ml IV DAILY Plan: Assessment * 55-year-old male diagnosed with COVID-19 on February 06, diagnosed with viral pneumonia on February 16, and admitted on February 22 with appendicitis developed worsening hypoxemia overnight. * Chest x-ray improved today from February 16 * D-dimer on February 16 was 0.73 and C-reactive protein of 20 * Appendicitis appears to be improving with decreased pain and improvement in white count. * Possibility patient is having worsening oxygenation secondary to viral pneumonia, more sedentary since he has been hospitalized, or other cause. Recommendation/plan * Repeat patient's ferritin, D-dimer and C-reactive protein. * Start remdesivir 200 mg x 1 then 100 mg daily x4 * Restart dexamethasone 6 mg daily * Continue antibiotics for appendicitis. * CBC, CMP, magnesium, phosphorus, D-dimer, and C-reactive protein daily to follow COVID-19 * FiO2 to keep SPO2 between 88 and 94%. * I appreciate you allowing me to participate in the care of this patient. I be happy to assume medical care since the patient is a nonsurgical candidate at this time.
[2020-02-26] MEDS ORDERED: Sodium Chloride 0.9% 250 ML IV ONE (12:19)
[2020-02-26] MEDS ORDERED: Sodium Chloride 0.9% 10 ML Syringe FLUSH ONE (12:41)
[2020-02-26] MEDS ORDERED: Iopamidol 755 Mg/ML 100 ML Bottle IVPUSH ONE (12:41)
[2020-02-26] MEDS: Dexamethasone 4 MG Tab PO SCH (12:43)
[2020-02-26] MEDS ORDERED: Sodium Chloride 0.9% 100 ML IV SCH (12:45)
[2020-02-26] MEDS ORDERED: Heparin Sodium 5,000 Units/ML Vial IVPUSH ONE ×2 (14:30→22:20)
--- NOTE | 2020-02-26 14:49 | PCM.SN.2 ---
- Free Text/Narrative Note: I was called with a critical D-dimer of 7.6. CTA of the chest was performed. I first discussed this with Dr. Mejia the on-call edger automatic at [facility] in [place]. He did state that there is a risk of contrast-induced nephropathy and even chance of requiring dialysis, but because his risk of DVT warrants the exam that the benefits outweigh the risks for contrast. CT did demonstrate bilateral pulmonary emboli without right heart strain. Filling defects were present within the right mainstem pulmonary artery, pulmonary artery to the right lower lobe, right middle lobe and right upper lobe, left lower lobe and left upper lobe. Diffuse patchy airspace opacities noted throughout the lungs bilaterally. Mediastinal lymphadenopathy present measuring up to 1.8 cm. I discussed the findings with the patient and recommended starting a heparin drip. Patient agreed. We will continue him on Covid treatment along with the heparin drip.
[2020-02-26] MEDS: Heparin Sodium/D5W 25,000 UNITS/500 ML BAG IV SCH (15:53)
[2020-02-26] MEDS: Sodium Chloride 0.9% 1,000 ML IV SCH (19:43)
[2020-02-27] MEDS: Sodium Chloride 0.9% 1,000 ML IV SCH ×3 (03:17→20:50)
[2020-02-27] MEDS: Piperacillin/Tazobactam 4.5 GM in Sodium Chloride 0.9% 100 ML IV SCH (08:30)
[2020-02-27] MEDS: Heparin Sodium/D5W 25,000 UNITS/500 ML BAG IV SCH ×2 (08:30→23:50)
[2020-02-27] MEDS: Losartan 25 MG Tab PO SCH (08:32)
[2020-02-27] MEDS: Multivitamins,Therapeutic Tab PO SCH (08:32)
[2020-02-27] MEDS: Multivitamins with Minerals/Folic Acid/Lutein/Zeaxanth Tab PO SCH (08:32)
[2020-02-27] MEDS: Aspirin 81 MG Tab.EC PO SCH (08:32)
[2020-02-27] MEDS: Dexamethasone 4 MG Tab PO SCH (08:33)
[2020-02-27] MEDS: Polyethylene Glycol 3350 Powder 17 GM Packet PO SCH (08:45)
[2020-02-27] MEDS: Saccharomyces Boulardii (Probiotic) 250 MG Cap PO SCH ×2 (10:43→20:51)
[2020-02-27] MEDS ORDERED: REMDESIVIR (EUA) 100 MG in Sodium Chloride 0.9% 100 ML IV SCH (11:30)
[2020-02-27] MEDS: amLODIPine 5 MG Tab PO SCH (12:57)
--- NOTE | 2020-02-27 13:35 | CT ---
"Addendum created by Pino Valenzuela MD on 02/24/2020 12:53 AM Central Time ([place] & [place]): THIS REPORT CONTAINS FINDINGS THAT MAY BE CRITICAL TO PATIENT CARE. The findings were verbally communicated via telephone conference with YOBANY PARSON at 12:53 AM CDT on 02/24/2020. The findings were acknowledged and understood. Initial Report created on 02/24/2020 12:52 AM Central Time ([place] & [place]): PROCEDURE INFORMATION: Exam: CT Abdomen And Pelvis With Contrast Exam date and time: 02/23/2020 11:05 PM Age: 65 years old Clinical indication: Abdominal pain; Localized; Right lower quadrant (rlq) TECHNIQUE: Imaging protocol: Computed tomography of the abdomen and pelvis with intravenous contrast. Contrast material: ISOVUE 300; Contrast volume: 125 ml; Contrast route: INTRAVENOUS (IV); COMPARISON: No relevant prior studies available. FINDINGS: Lungs: Patchy irregular infiltrate both lower lungs. Liver: The liver is normal. Gallbladder and bile ducts: No acute bony findings are identified. Pancreas: The pancreas is normal. Spleen: The spleen is normal. Adrenals: The adrenal glands are normal. Kidneys and ureters: There are multiple bilateral simple renal cysts. No follow- up is recommended. These these renal cysts measure up to 15 mm. There multiple subcentimeter lucencies, likely cysts as well. No follow-up is recommended. Stomach and bowel: Non-specific/nonobstructive intestinal gas pattern. The small bowel loops adjacent to the appendix appears thick-walled. Enteritis is suspect. This may well be secondary to appendicitis. DONG GARCIA | Final Radiology Report CONFIDENTIALITY STATEMENT This report is intended only for use by the referring physician, and only in accordance with law. If you received this in error, call [phone]. Page 2 of 2 Appendix: 15 mm appendix. The appendix demonstrates diffuse distention, with moderate surrounding inflammatory change. Pattern is most consistent with acute appendicitis. There is a 7 mm appendicoliths in the proximal appendix Intraperitoneal space: No free air. No free fluid. Vasculature: There is no aortic aneurysm. Lymph nodes: There is no adenopathy. No pelvic adenopathy. Urinary bladder: The bladder is normal. Reproductive: Seminal vesicles are unremarkable. Prostate is unremarkable. Bones/joints: No acute bony findings are identified. Soft tissues: There is a fat-containing umbilical hernia. No bowel loops are involved. The defect in the wall measures 2 cm IMPRESSION: 1. Findings suggest acute appendicitis of moderate severity. 2. There is mucosal thickening of the small bowel loops adjacent to the appendix, enteritis is suspect. This likely is secondary to appendicitis. Primary enteritis from some other cause is considered less likely. 3. Non-specific/nonobstructive intestinal gas pattern. 4. Parenchymal abnormality both bases. Question bilateral pneumonia. 5. There are multiple bilateral simple renal cysts. No follow-up is recommended. Thank you for allowing us to participate in the care of your patient. Dictated and Authenticated by: Pino Valenzuela MD 02/24/2020 12:52 AM Central Time ([place] & [place]) RICARDO"
--- NOTE | 2020-02-27 13:52 | PCM.PN ---
- General Info Date of Service: 02/27/20 Admission Dx/Problem (Free Text): Admission Diagnosis/Problem Admission Diagnosis/Problem Appendicitis Subjective Update: Chinedu is less short of breath today. He is tolerating his diet. He is down to 1 L nasal cannula. Functional Status: Reports: Pain Controlled - Review of Systems General: Reports: No Symptoms HEENT: Reports: No Symptoms Pulmonary: Reports: Shortness of Breath, Cough Cardiovascular: Reports: No Symptoms Gastrointestinal: Reports: No Symptoms Musculoskeletal: Reports: No Symptoms Neurological: Reports: No Symptoms Psychiatric: Reports: No Symptoms - Patient Data Vitals - Most Recent: Last Vital Signs Temp 97.9 F 02/27/20 11:14 Pulse 84 02/27/20 11:14 Resp 16 02/27/20 11:14 BP 151/86 H 02/27/20 12:57 Pulse Ox 93 L 02/27/20 11:14 Weight - Most Recent: 118.161 kg I&O - Last 24 Hours: Intake & Output 02/26/20 02/27/20 02/27/20 22:59 06:59 14:59 Intake Total 500 2500 60 Balance 500 2500 60 Lab Results Last 24 Hours: Laboratory Results - last 24 hr 02/26/20 02/26/20 02/26/20 Range/Units 13:55 13:55 20:31 WBC (4.23-9.07) K/mm3 RBC (4.63-6.08) M/mm3 Hgb (13.7-17.5) gm/dl Hct (40.1-51.0) % MCV (79.0-92.2) fl MCH (25.7-32.2) pg MCHC (32.2-35.5) g/dl RDW Std Deviation (35.1-43.9) fL Plt Count (163-337) K/mm3 MPV (9.4-12.3) fl Neut % (Auto) (34.0-67.9) % Lymph % (Auto) (21.8-53.1) % [place] % (Auto) (5.3-12.2) % Eos % (Auto) (0.8-7.0) Baso % (Auto) (0.1-1.2) % Neut # (Auto) (1.78-5.38) K/mm3 Lymph # (Auto) (1.32-3.57) K/mm3 [place] # (Auto) (0.30-0.82) K/mm3 Eos # (Auto) (0.04-0.54) K/mm3 Baso # (Auto) (0.01-0.08) K/mm3 Manual Slide Review PT 11.6 (9.7-12.0) SECONDS INR 1.09 APTT 29.8 42.5 H (21.7-31.4) SECONDS Sodium (136-145) mEq/L Potassium (3.5-5.1) mEq/L Chloride (98-107) mEq/L Carbon Dioxide (21-32) mEq/L Anion Gap (5-15) BUN (7-18) mg/dL Creatinine (0.7-1.3) mg/dL Est Cr Clr Drug Dosing mL/min Estimated GFR (MDRD) (>60) mL/min BUN/Creatinine Ratio (14-18) Glucose (80-115) mg/dL Calcium (8.5-10.1) mg/dL 02/27/20 02/27/20 02/27/20 Range/Units 02:30 04:40 04:40 WBC 10.05 H (4.23-9.07) K/mm3 RBC 4.24 L (4.63-6.08) M/mm3 Hgb 11.9 L (13.7-17.5) gm/dl Hct 37.3 L (40.1-51.0) % MCV 88.0 (79.0-92.2) fl MCH 28.1 (25.7-32.2) pg MCHC 31.9 L (32.2-35.5) g/dl RDW Std Deviation 43.1 (35.1-43.9) fL Plt Count 318 (163-337) K/mm3 MPV 9.7 (9.4-12.3) fl Neut % (Auto) 90.7 H (34.0-67.9) % Lymph % (Auto) 5.4 L (21.8-53.1) % [place] % (Auto) 3.3 L (5.3-12.2) % Eos % (Auto) 0 L (0.8-7.0) Baso % (Auto) 0.0 L (0.1-1.2) % Neut # (Auto) 9.12 H (1.78-5.38) K/mm3 Lymph # (Auto) 0.54 L (1.32-3.57) K/mm3 [place] # (Auto) 0.33 (0.30-0.82) K/mm3 Eos # (Auto) 0.00 L (0.04-0.54) K/mm3 Baso # (Auto) 0.00 L (0.01-0.08) K/mm3 Manual Slide Review Abnormal smear PT (9.7-12.0) SECONDS INR APTT 54.8 H (21.7-31.4) SECONDS Sodium 138 (136-145) mEq/L Potassium 4.4 (3.5-5.1) mEq/L Chloride 107 (98-107) mEq/L Carbon Dioxide 24 (21-32) mEq/L Anion Gap 11.4 (5-15) BUN 24 H (7-18) mg/dL Creatinine 1.9 H (0.7-1.3) mg/dL Est Cr Clr Drug Dosing 44.46 mL/min Estimated GFR (MDRD) 36 (>60) mL/min BUN/Creatinine Ratio 12.6 L (14-18) Glucose 222 H (80-115) mg/dL Calcium 7.9 L (8.5-10.1) mg/dL 02/27/20 02/27/20 Range/Units 06:57 06:57 WBC 10.81 H (4.23-9.07) K/mm3 RBC 4.17 L (4.63-6.08) M/mm3 Hgb 11.7 L (13.7-17.5) gm/dl Hct 36.5 L (40.1-51.0) % MCV 87.5 (79.0-92.2) fl MCH 28.1 (25.7-32.2) pg MCHC 32.1 L (32.2-35.5) g/dl RDW Std Deviation 43.0 (35.1-43.9) fL Plt Count 315 (163-337) K/mm3 MPV 9.3 L (9.4-12.3) fl Neut % (Auto) (34.0-67.9) % Lymph % (Auto) (21.8-53.1) % [place] % (Auto) (5.3-12.2) % Eos % (Auto) (0.8-7.0) Baso % (Auto) (0.1-1.2) % Neut # (Auto) (1.78-5.38) K/mm3 Lymph # (Auto) (1.32-3.57) K/mm3 [place] # (Auto) (0.30-0.82) K/mm3 Eos # (Auto) (0.04-0.54) K/mm3 Baso # (Auto) (0.01-0.08) K/mm3 Manual Slide Review PT (9.7-12.0) SECONDS INR APTT 51.9 H (21.7-31.4) SECONDS Sodium (136-145) mEq/L Potassium (3.5-5.1) mEq/L Chloride (98-107) mEq/L Carbon Dioxide (21-32) mEq/L Anion Gap (5-15) BUN (7-18) mg/dL Creatinine (0.7-1.3) mg/dL Est Cr Clr Drug Dosing mL/min Estimated GFR (MDRD) (>60) mL/min BUN/Creatinine Ratio (14-18) Glucose (80-115) mg/dL Calcium (8.5-10.1) mg/dL Med Orders - Current: Current Medications Acetaminophen (Tylenol) 650 mg PO Q4H PRN PRN Reason: Fever Greater Than 101 Hydrocodone Bitart/Acetaminophen ([place] 325-5 Mg) 1 tab PO Q4H PRN PRN Reason: Abdominal Pain Amlodipine Besylate (Norvasc) 5 mg PO DAILY [facility] Last Admin: 02/27/20 12:57 Dose: 5 mg Documented by: Aspirin (Halfprin) 81 mg PO DAILY [facility] Last Admin: 02/27/20 08:32 Dose: 81 mg Documented by: Benzonatate (Tessalon Perles) 100 mg PO Q8H PRN PRN Reason: Cough Dexamethasone (Dexamethasone) 6 mg PO DAILY [facility] Stop: 03/06/20 09:01 Last Admin: 02/27/20 08:33 Dose: 6 mg Documented by: Hydromorphone HCl (Dilaudid) 1 mg IVPUSH Q2H PRN PRN Reason: Pain Last Admin: 02/25/20 03:15 Dose: 1 mg Documented by: Piperacillin Sod/Tazobactam (Sod 4.5 gm/ Sodium Chloride) 100 mls @ 25 mls/hr IV Q8H [facility] Stop: 02/27/20 23:59 Last Admin: 02/27/20 08:30 Dose: 25 mls/hr Documented by: Sodium Chloride (Normal Saline) 1,000 mls @ 125 mls/hr IV ASDIRECTED [facility] Last Admin: 02/27/20 10:44 Dose: 125 mls/hr Documented by: Heparin Sodium/Dextrose (Heparin 25,000 Units In D5w 500 Ml) 25,000 units in 500 mls @ 26 mls/hr IV TITRATE [facility]; Protocol Last Admin: 02/27/20 08:30 Dose: 13.89 units/kg/hr, 32.699 mls/hr Documented by: Remdesivir 100 mg/ Sodium (Chloride) 100 mls @ 100 mls/hr IV Q24H [facility] Stop: 03/01/20 13:59 Multivitamins (Thera) 1 each PO DAILY [facility] Last Admin: 02/27/20 08:32 Dose: 1 each Documented by: Olmesartan Medoxomil (20 Mg Ptom) 0 mg PO DAILY [facility] Ondansetron HCl (Zofran) 4 mg IVPUSH Q8H PRN PRN Reason: Nausea/Vomiting Polyethylene Glycol (Miralax) 17 gm PO DAILY [facility] Last Admin: 02/27/20 08:45 Dose: Not Given Documented by: Saccharomyces Boulardii (Florastor) 250 mg PO BID [facility] Last Admin: 02/27/20 10:43 Dose: 250 mg Documented by: Vit A/Vit C/Vit E/Selen/Cu/Zn/Lutei (Icaps Mv) 1 tab PO DAILY [facility] Last Admin: 02/27/20 08:32 Dose: 1 tab Documented by: Discontinued Medications Aspirin (Aspirin) 81 mg PO DAILY [facility] Last Admin: 02/24/20 09:58 Dose: 81 mg Documented by: Diatrizoate Meglum/Diatrizoate Sod (Gastrografin 37%) 120 ml PO ONETIME ONE Stop: 02/23/20 23:42 Last Admin: 02/23/20 23:42 Dose: 120 ml Documented by: Heparin Sodium (Porcine) (Heparin Sodium) 5,000 units SUBCUT Q12H [facility] Last Admin: 02/25/20 23:40 Dose: 5,000 units Documented by: Heparin Sodium (Porcine) (Heparin Sodium) 5,000 units SUBCUT Q12H [facility] Last Admin: 02/26/20 09:28 Dose: 5,000 units Documented by: Heparin Sodium (Porcine) (Heparin Sodium) 5,000 units IVPUSH .BOLUS ONE Stop: 02/26/20 14:31 Last Admin: 02/26/20 15:51 Dose: 5,000 units Documented by: Heparin Sodium (Porcine) (Heparin Sodium) 1,500 units IVPUSH ONETIME ONE Stop: 02/26/20 22:21 Last Admin: 02/26/20 22:35 Dose: 1,500 units Documented by: Hydromorphone HCl (Dilaudid) 1 mg IVPUSH ONETIME ONE Stop: 02/23/20 21:36 Last Admin: 02/23/20 21:55 Dose: 1 mg Documented by: Sodium Chloride (Normal Saline) 1,000 mls @ 150 mls/hr IV ASDIRECTED [facility] Stop: 02/23/20 23:59 Last Admin: 02/23/20 21:52 Dose: 150 mls/hr Documented by: Piperacillin Sod/Tazobactam (Sod 4.5 gm/ Sodium Chloride) 100 mls @ 200 mls/hr IV ONETIME ONE Stop: 02/24/20 00:28 Last Admin: 02/24/20 00:20 Dose: 200 mls/hr Documented by: Lactated Ringer's (Ringers, Lactated) 1,000 mls @ [facility] Admin: 02/24/20 00:21 Dose: 125 mls/hr Documented by: Lactated Ringer's (Ringers, Lactated) 1,000 mls @ 125 [facility]ls[facility] Last Admin: 02/24/20 21:12 Dose: 125 mls/hr Documented by: Magnesium Sulfate (Magnesium Sulfate In Water Premix) 2 gm in 50 mls @ 25 mls/hr IV ONETIME ONE Stop: 02/25/20 11:59 Last Admin: 02/25/20 12:16 Dose: 25 mls/hr Documented by: Remdesivir 200 mg/ Sodium (Chloride) 250 mls @ 250 mls/hr IV ONETIME ONE Stop: 02/26/20 12:29 Last Admin: 02/26/20 12:50 Dose: 250 mls/hr Documented by: Remdesivir 100 mg/ Sodium (Chloride) 100 mls @ 100 mls/hr IV DAILY [facility] Stop: 03/01/20 09:59 Sodium Chloride (Normal Saline) 250 mls @ 250 mls/hr IV .BOLUS ONE Stop: 02/26/20 13:18 Last Admin: 02/26/20 12:51 Dose: 250 mls/hr Documented by: Sodium Chloride (Normal Saline) 100 mls @ 60 mls/hr IV ASDIRECTED [facility] Stop: 02/26/20 15:00 Last Admin: 02/26/20 13:31 Dose: 60 mls/hr Documented by: Iopamidol (Isovue-300 (61%)) 100 ml IVPUSH ONETIME ONE Stop: 02/23/20 23:42 Last Admin: 02/23/20 23:42 Dose: 100 ml Documented by: Iopamidol (Isovue-370 (76%)) 100 ml IVPUSH ONETIME ONE Stop: 02/26/20 12:42 Last Admin: 02/26/20 13:30 Dose: 80 ml Documented by: Losartan Potassium (Cozaar) 50 mg PO DAILY [facility] Last Admin: 02/27/20 08:32 Dose: 50 mg Documented by: Olmesartan Medoxomil (20 Mg Ptom) 0 mg PO DAILY [facility] Last Admin: 02/25/20 10:16 Dose: 20 mg Documented by: Ondansetron HCl (Zofran) 4 mg IVPUSH ONETIME ONE Stop: 02/23/20 21:37 Last Admin: 02/23/20 21:55 Dose: 4 mg Documented by: Sodium Chloride (Saline Flush) 10 ml FLUSH ONETIME ONE Stop: 02/23/20 23:42 Last Admin: 02/23/20 23:43 Dose: 10 ml Documented by: Sodium Chloride (Saline Flush) 10 ml FLUSH ONETIME ONE Stop: 02/26/20 12:42 Last Admin: 02/26/20 13:30 Dose: 10 ml Documented by: - Exam Quality Assessment: Supplemental Oxygen General: Alert, Oriented HEENT: Pupils Equal, Mucous Membr. Moist/[place] Neck: Supple Lungs: Clear to Auscultation, Normal Respiratory Effort Cardiovascular: Regular Rate, Regular Rhythm GI/Abdominal Exam: Normal Bowel Sounds, Soft, Non-Tender, No Distention Extremities: Normal Inspection, Normal Range of Motion, No Pedal Edema, Normal Capillary Refill Skin: Warm, Dry, Intact Psy/Mental Status: Alert, Normal Affect, Normal Mood Sepsis Event Note - Evaluation Sepsis Screening Result: No Definite Risk - Focused Exam Vital Signs: Vital Signs Temp Pulse Resp BP Pulse Ox Pulse Ox 02/27/20 12:57 151/86 H 02/27/20 11:14 97.9 F 84 16 151/86 H 93 L 02/27/20 08:32 146/83 H 02/27/20 08:21 91 L 02/27/20 08:03 95 02/27/20 07:36 97.7 F 68 16 146/83 H 96 02/27/20 06:19 92 L 02/27/20 03:20 98.1 F 72 18 143/77 H 93 L - Problem List & Annotations (1) Acute appendicitis SNOMED Code(s): 40277944 Code(s): K35.80 - UNSPECIFIED ACUTE APPENDICITIS Status: Acute Current Visit: Yes (2) COVID-19 SNOMED Code(s): 167006509 Code(s): U07.1 - COVID-19 Status: Acute Current Visit: Yes (3) Chronic renal insufficiency SNOMED Code(s): 797354879 Code(s): N18.9 - CHRONIC KIDNEY DISEASE, UNSPECIFIED Status: Acute Current Visit: Yes (4) Pneumonia due to COVID-19 virus SNOMED Code(s): 140622804010507761 Code(s): U07.1 - COVID-19; J12.89 - OTHER VIRAL PNEUMONIA Status: Acute Current Visit: No (5) Pulmonary embolism associated with COVID-19 SNOMED Code(s): 208941309 Code(s): U07.1 - COVID-19; I26.99 - OTHER PULMONARY EMBOLISM WITHOUT ACUTE COR PULMONALE Status: Acute Current Visit: Yes - Problem List Review Problem List Initiated/Reviewed/Updated: Yes - My Orders Last 24 Hours: My Active Orders 02/26/20 14:30 Heparin Sodium/D5W [Heparin 25,000 Units in D5W 500 ML] 25,000 units in 500 ml IV TITRATE 10/29/20 10:00 Saccharomyces Boulardii [Florastor] 250 mg PO BID 02/27/20 12:00 amLODIPine [Norvasc] 5 mg PO DAILY 02/27/20 13:00 Remdesivir (Eua) [Remdesivir (EUA)] 100 mg Sodium Chloride 0.9% [Normal Saline] 100 ml IV Q24H - Plan Plan:: Assessment 02/26/2020 * 55-year-old male diagnosed with COVID-19 on February 06, diagnosed with viral pneumonia on February 16, and admitted on February 22 with appendicitis developed worsening hypoxemia overnight. * Chest x-ray improved today from February 16 * D-dimer on February 16 was 0.73 and C-reactive protein of 20 * Appendicitis appears to be improving with decreased pain and improvement in white count. * Possibility patient is having worsening oxygenation secondary to viral pneumonia, more sedentary since he has been hospitalized, or other cause. 02/27/2020 * COVID-19 pneumonia * Bilateral pulmonary embolism without right heart strain * Appendicitis * Mediastinal lymphadenopathy * Stage III renal insufficiency * Hyperglycemia * Diarrhea Improvement in oxygen status overnight. Patient continues on heparin drip without complications. White blood cell count is down to 10.8 and kidney function has improved to a GFR of 36 and creatinine of 1.9. Blood sugars have increased to 222 likely secondary to dexamethasone. Recommendation/plan * Follow CBC, CMP, mag, Herbie, D-dimer and C-reactive protein. * Rremdesivir day 2 of 5 * Dexamethasone day 2 of 5. Patient has already completed 5 days prior to admission. * Sliding scale insulin * Continue antibiotics for appendicitis. * Start probiotics * Continue heparin drip for 48 hours then switch to Eliquis. * FiO2 to keep SPO2 between 88 and 94%. * CODE STATUS full code. * Length of stay 3-4 more days. * Length of stay is greater than 96 hours secondary to new onset pulmonary embolism and treatment for COVID-19.
--- NOTE | 2020-02-27 16:47 | CT ---
"Addendum created by Terence Webb DO on 02/26/2020 2:48 PM Central Time ([place] & [place]): THIS REPORT CONTAINS FINDINGS THAT MAY BE CRITICAL TO PATIENT CARE. The findings were verbally communicated via telephone conference at 2:48 PM CDT on 02/26/2020 with SCOTT MEZA. The findings were acknowledged and understood. Initial Report created on 02/26/2020 2:33 PM Central Time ([place] & [place]): PROCEDURE INFORMATION: Exam: CT Angiography Chest With Contrast Exam date and time: 02/26/2020 12:28 PM Age: 65 years old Clinical indication: Abnormal findings; Abnormal diagnostic tests; Patient HX: Covid positive, worsening SOB, elevated d-dimer TECHNIQUE: Imaging protocol: Computed tomographic angiography of the chest with intravenous contrast. 3D rendering (Not supervised by radiologist): MIP and/or 3D reconstructed images were created by the technologist. Contrast material: ISOVUE 370; Contrast volume: 80 ml; Contrast route: INTRAVENOUS (IV); COMPARISON: CR Chest 1V Frontal 02/26/2020 10:33 AM FINDINGS: Pulmonary arteries: Filling defects are present within the right mainstem pulmonary artery, pulmonary artery to the right lower lobe, right middle lobe and right upper lobe, left lower lobe and left upper lobe. Aorta: No evidence of aortic dissection. Lungs: Diffuse patchy airspace opacities noted throughout the lungs bilaterally. Pleural space: Unremarkable. No pneumothorax. No pleural effusion. Heart: No evidence of right heart strain. The heart demonstrates mild diffuse enlargement. DONG GARCIA | Final Radiology Report CONFIDENTIALITY STATEMENT This report is intended only for use by the referring physician, and only in accordance with law. If you received this in error, call [phone]. Page 2 of 2 Lymph nodes: Mediastinal lymphadenopathy is present measuring up to 1.8 cm. Liver: There is a diffuse decrease in hepatic parenchymal density, consistent with mild fatty infiltration. Adrenals: Thickening of both adrenal glands noted. Bones/joints: The thoracic spine demonstrates mild degenerative changes at multiple levels. Soft tissues: Unremarkable. IMPRESSION: 1. Bilateral pulmonary emboli. 2. No evidence of right heart strain. 3. No evidence of aortic dissection. 4. Diffuse patchy airspace opacities noted throughout the lungs bilaterally. Findings consistent with edema, viral or atypical pneumonia. Other etiologies are not excluded. 5. Mediastinal lymphadenopathy is present measuring up to 1.8 cm. Thank you for allowing us to participate in the care of your patient. Dictated and Authenticated by: Terence Webb DO 02/26/2020 2:33 PM Central Time ([place] & [place]) RICARDO"
[2020-02-27] MEDS: REMDESIVIR (EUA) 100 MG in Sodium Chloride 0.9% 100 ML IV SCH (16:57)
[2020-02-27] MEDS ORDERED: Piperacillin/Tazobactam 4.5 GM in Sodium Chloride 0.9% 100 ML IV SCH (19:00)
[2020-02-28] MEDS: Sodium Chloride 0.9% 1,000 ML IV SCH (04:35)
[2020-02-28] MEDS ORDERED: 50% Dextrose in Water 50 ML Syringe IV PRN (08:20)
[2020-02-28] MEDS ORDERED: amLODIPine 5 MG Tab PO SCH (09:00)
[2020-02-28] MEDS: Multivitamins with Minerals/Folic Acid/Lutein/Zeaxanth Tab PO SCH (09:10)
[2020-02-28] MEDS: Aspirin 81 MG Tab.EC PO SCH (09:10)
[2020-02-28] MEDS: Amoxicillin/Clavulanate K 875-125 MG Tab PO SCH ×2 (09:10→20:57)
[2020-02-28] MEDS: Apixaban 5 MG Tab PO SCH ×2 (09:10→20:57)
[2020-02-28] MEDS: Saccharomyces Boulardii (Probiotic) 250 MG Cap PO SCH ×2 (09:10→20:57)
[2020-02-28] MEDS: Dexamethasone 4 MG Tab PO SCH (09:10)
[2020-02-28] MEDS: Multivitamins,Therapeutic Tab PO SCH (09:10)
[2020-02-28] MEDS: Polyethylene Glycol 3350 Powder 17 GM Packet PO SCH (09:11)
[2020-02-28] MEDS: amLODIPine 5 MG Tab PO SCH (09:11)
[2020-02-28] MEDS: OLMESARTAN MEDOXOMIL 20 MG PO SCH (09:17)
--- NOTE | 2020-02-28 09:32 | CR ---
PROCEDURE INFORMATION: Exam: XR Chest, 1 View Exam date and time: 02/26/2020 10:33 AM Age: 65 years old Clinical indication: Shortness of breath; Patient HX: Respiratory failure TECHNIQUE: Imaging protocol: XR of the chest Views: 1 view. COMPARISON: OT Chest 1V Frontal 02/17/2020 11:07 AM FINDINGS: Lungs: Bilateral perihilar infiltrates perhaps slightly decreased since the prior study. Pleural space: Unremarkable. No pleural effusion. No pneumothorax. Heart/Mediastinum: Unremarkable. No cardiomegaly. Bones/joints: Unremarkable. IMPRESSION: Bilateral perihilar infiltrates slightly improved since the prior study dated 02/17/2020 Thank you for allowing us to participate in the care of your patient. Dictated and Authenticated by: Alonso Crian MD 02/27/2020 5:45 PM Central Time ([place] & [place]) [facility]
--- NOTE | 2020-02-28 10:07 | PCM.PN ---
- General Info Date of Service: 02/28/20 Admission Dx/Problem (Free Text): Admission Diagnosis/Problem Admission Diagnosis/Problem Appendicitis Subjective Update: Patient has been weaned off of oxygen. With activity he is still dropping into the upper 80s. He states he is feeling better, but does get short of breath with activity. Appetite is improving. Functional Status: Reports: Pain Controlled - Review of Systems General: Reports: No Symptoms HEENT: Reports: No Symptoms Pulmonary: Reports: Shortness of Breath Cardiovascular: Reports: No Symptoms Gastrointestinal: Reports: No Symptoms Musculoskeletal: Reports: No Symptoms - Patient Data Vitals - Most Recent: Last Vital Signs Temp 97.5 F 02/28/20 08:06 Pulse 69 02/28/20 08:06 Resp 20 02/28/20 08:06 BP 156/89 H 02/28/20 09:11 Pulse Ox 92 L 02/28/20 08:40 Weight - Most Recent: 119.522 kg I&O - Last 24 Hours: Intake & Output 02/27/20 02/28/20 02/28/20 22:59 06:59 14:59 Intake Total 3034 2466 Balance 3034 2466 Lab Results Last 24 Hours: Laboratory Results - last 24 hr 02/26/20 02/28/20 02/28/20 Range/Units 04:50 04:26 04:26 WBC 12.27 H (4.23-9.07) K/mm3 RBC 3.92 L (4.63-6.08) M/mm3 Hgb 11.0 L (13.7-17.5) gm/dl Hct 34.6 L (40.1-51.0) % MCV 88.3 (79.0-92.2) fl MCH 28.1 (25.7-32.2) pg MCHC 31.8 L (32.2-35.5) g/dl RDW Std Deviation 43.2 (35.1-43.9) fL Plt Count 333 (163-337) K/mm3 MPV 9.8 (9.4-12.3) fl Neut % (Auto) 85.2 H (34.0-67.9) % Lymph % (Auto) 6.6 L (21.8-53.1) % [place] % (Auto) 7.2 (5.3-12.2) % Eos % (Auto) 0 L (0.8-7.0) Baso % (Auto) 0.0 L (0.1-1.2) % Neut # (Auto) 10.46 H (1.78-5.38) K/mm3 Lymph # (Auto) 0.81 L (1.32-3.57) K/mm3 [place] # (Auto) 0.88 H (0.30-0.82) K/mm3 Eos # (Auto) 0.00 L (0.04-0.54) K/mm3 Baso # (Auto) 0.00 L (0.01-0.08) K/mm3 Manual Slide Review Abnormal smear APTT 49.9 H (21.7-31.4) SECONDS D-Dimer, Quantitative 3.70 H (0.19-0.50) mg/L Sodium (136-145) mEq/L Potassium (3.5-5.1) mEq/L Chloride (98-107) mEq/L Carbon Dioxide (21-32) mEq/L Anion Gap (5-15) BUN (7-18) mg/dL Creatinine (0.7-1.3) mg/dL Est Cr Clr Drug Dosing mL/min Estimated GFR (MDRD) (>60) mL/min BUN/Creatinine Ratio (14-18) Glucose (80-115) mg/dL Calcium (8.5-10.1) mg/dL Phosphorus (2.6-4.7) mg/dL Magnesium (1.8-2.4) mg/dl Total Bilirubin (0.2-1.0) mg/dL AST (15-37) U/L ALT (16-63) U/L Alkaline Phosphatase (46-116) U/L C-Reactive Protein (<1.0) mg/dL Total Protein (6.4-8.2) g/dl Albumin (3.4-5.0) g/dl Globulin gm/dL Albumin/Globulin Ratio (1-2) Procalcitonin 0.80 H (<0.10) ng/mL 02/28/20 Range/Units 04:26 WBC (4.23-9.07) K/mm3 RBC (4.63-6.08) M/mm3 Hgb (13.7-17.5) gm/dl Hct (40.1-51.0) % MCV (79.0-92.2) fl MCH (25.7-32.2) pg MCHC (32.2-35.5) g/dl RDW Std Deviation (35.1-43.9) fL Plt Count (163-337) K/mm3 MPV (9.4-12.3) fl Neut % (Auto) (34.0-67.9) % Lymph % (Auto) (21.8-53.1) % [place] % (Auto) (5.3-12.2) % Eos % (Auto) (0.8-7.0) Baso % (Auto) (0.1-1.2) % Neut # (Auto) (1.78-5.38) K/mm3 Lymph # (Auto) (1.32-3.57) K/mm3 [place] # (Auto) (0.30-0.82) K/mm3 Eos # (Auto) (0.04-0.54) K/mm3 Baso # (Auto) (0.01-0.08) K/mm3 Manual Slide Review APTT (21.7-31.4) SECONDS D-Dimer, Quantitative (0.19-0.50) mg/L Sodium 140 (136-145) mEq/L Potassium 4.2 (3.5-5.1) mEq/L Chloride 109 H (98-107) mEq/L Carbon Dioxide 21 (21-32) mEq/L Anion Gap 14.2 (5-15) BUN 28 H (7-18) mg/dL Creatinine 1.9 H (0.7-1.3) mg/dL Est Cr Clr Drug Dosing 44.46 mL/min Estimated GFR (MDRD) 36 (>60) mL/min BUN/Creatinine Ratio 14.7 (14-18) Glucose 220 H (80-115) mg/dL Calcium 7.7 L (8.5-10.1) mg/dL Phosphorus 3.3 (2.6-4.7) mg/dL Magnesium 1.7 L (1.8-2.4) mg/dl Total Bilirubin 0.3 (0.2-1.0) mg/dL AST 31 (15-37) U/L ALT 60 (16-63) U/L Alkaline Phosphatase 127 H (46-116) U/L C-Reactive Protein 6.8 H* (<1.0) mg/dL Total Protein 4.9 L (6.4-8.2) g/dl Albumin 1.4 L (3.4-5.0) g/dl Globulin 3.5 gm/dL Albumin/Globulin Ratio 0.4 L (1-2) Procalcitonin (<0.10) ng/mL Med Orders - Current: Current Medications Acetaminophen (Tylenol) 650 mg PO Q4H PRN PRN Reason: Fever Greater Than 101 Hydrocodone Bitart/Acetaminophen (Beattie 325-5 Mg) 1 tab PO Q4H PRN PRN Reason: Abdominal Pain Amlodipine Besylate (Norvasc) 5 mg PO DAILY [facility] Last Admin: 02/28/20 09:11 Dose: 5 mg Documented by: Amoxicillin/Clavulanate Potassium (Augmentin 875 Mg/125 Mg) 1 tab PO Q12H [facility] Last Admin: 02/28/20 09:10 Dose: 1 tab Documented by: Apixaban (Eliquis) 10 mg PO BID [facility] Last Admin: 02/28/20 09:10 Dose: 10 mg Documented by: Aspirin (Halfprin) 81 mg PO DAILY [facility] Last Admin: 02/28/20 09:10 Dose: 81 mg Documented by: Benzonatate (Tessalon Perles) 100 mg PO Q8H PRN PRN Reason: Cough Dexamethasone (Dexamethasone) 6 mg PO DAILY [facility] Stop: 03/06/20 09:01 Last Admin: 02/28/20 09:10 Dose: 6 mg Documented by: Dextrose/Water (Dextrose 50% In Water) 50 ml IV ASDIRECTED PRN PRN Reason: Hypoglycemia Hydromorphone HCl (Dilaudid) 1 mg IVPUSH Q2H PRN PRN Reason: Pain Last Admin: 02/25/20 03:15 Dose: 1 mg Documented by: Remdesivir 100 mg/ Sodium (Chloride) 100 mls @ 100 mls/hr IV Q24H [facility] Stop: 03/01/20 13:59 Last Admin: 02/27/20 16:57 Dose: 100 mls/hr Documented by: Insulin Human Lispro (Humalog) 0 unit SUBCUT QIDACANDBED [facility]; Protocol Multivitamins (Thera) 1 each PO DAILY [facility] Last Admin: 02/28/20 09:10 Dose: 1 each Documented by: Olmesartan Medoxomil (20 Mg Ptom) 0 mg PO DAILY [facility] Last Admin: 02/28/20 09:17 Dose: 20 mg Documented by: Ondansetron HCl (Zofran) 4 mg IVPUSH Q8H PRN PRN Reason: Nausea/Vomiting Polyethylene Glycol (Miralax) 17 gm PO DAILY [facility] Last Admin: 02/28/20 09:11 Dose: Not Given Documented by: Saccharomyces Boulardii (Florastor) 250 mg PO BID [facility] Last Admin: 02/28/20 09:10 Dose: 250 mg Documented by: Vit A/Vit C/Vit E/Selen/Cu/Zn/Lutei (Icaps Mv) 1 tab PO DAILY [facility] Last Admin: 02/28/20 09:10 Dose: 1 tab Documented by: Discontinued Medications Amlodipine Besylate (Norvasc) 5 mg PO DAILY [facility] Aspirin (Aspirin) 81 mg PO DAILY [facility] Last Admin: 02/24/20 09:58 Dose: 81 mg Documented by: Diatrizoate Meglum/Diatrizoate Sod (Gastrografin 37%) 120 ml PO ONETIME ONE Stop: 02/23/20 23:42 Last Admin: 02/23/20 23:42 Dose: 120 ml Documented by: Heparin Sodium (Porcine) (Heparin Sodium) 5,000 units SUBCUT Q12H [facility] Last Admin: 02/25/20 23:40 Dose: 5,000 units Documented by: Heparin Sodium (Porcine) (Heparin Sodium) 5,000 units SUBCUT Q12H [facility] Last Admin: 02/26/20 09:28 Dose: 5,000 units Documented by: Heparin Sodium (Porcine) (Heparin Sodium) 5,000 units IVPUSH .BOLUS ONE Stop: 02/26/20 14:31 Last Admin: 02/26/20 15:51 Dose: 5,000 units Documented by: Heparin Sodium (Porcine) (Heparin Sodium) 1,500 units IVPUSH ONETIME ONE Stop: 02/26/20 22:21 Last Admin: 02/26/20 22:35 Dose: 1,500 units Documented by: Hydromorphone HCl (Dilaudid) 1 mg IVPUSH ONETIME ONE Stop: 02/23/20 21:36 Last Admin: 02/23/20 21:55 Dose: 1 mg Documented by: Sodium Chloride (Normal Saline) 1,000 mls @ 150 mls/hr IV ASDIRECTED [facility] Stop: 02/23/20 23:59 Last Admin: 02/23/20 21:52 Dose: 150 mls/hr Documented by: Piperacillin Sod/Tazobactam (Sod 4.5 gm/ Sodium Chloride) 100 mls @ 200 mls/hr IV ONETIME ONE Stop: 02/24/20 00:28 Last Admin: 02/24/20 00:20 Dose: 200 mls/hr Documented by: Lactated Ringer's (Ringers, Lactated) 1,000 mls @ 125 mls/hr IV ASDIRECTED [facility] Last Admin: 02/24/20 00:21 Dose: 125 mls/hr Documented by: Lactated Ringer's (Ringers, Lactated) 1,000 mls @ 125 mls/hr IV ASDIRECTED [facility] Last Admin: 02/24/20 21:12 Dose: 125 mls/hr Documented by: Piperacillin Sod/Tazobactam (Sod 4.5 gm/ Sodium Chloride) 100 mls @ 25 mls/hr IV Q8H [facility] Stop: 02/27/20 23:59 Last Admin: 02/27/20 08:30 Dose: 25 mls/hr Documented by: Magnesium Sulfate (Magnesium Sulfate In Water Premix) 2 gm in 50 mls @ 25 mls/hr IV ONETIME ONE Stop: 02/25/20 11:59 Last Admin: 02/25/20 12:16 Dose: 25 mls/hr Documented by: Remdesivir 200 mg/ Sodium (Chloride) 250 mls @ 250 mls/hr IV ONETIME ONE Stop: 02/26/20 12:29 Last Admin: 02/26/20 12:50 Dose: 250 mls/hr Documented by: Remdesivir 100 mg/ Sodium (Chloride) 100 mls @ 100 mls/hr IV DAILY [facility] Stop: 03/01/20 09:59 Sodium Chloride (Normal Saline) 250 mls @ 250 mls/hr IV .BOLUS ONE Stop: 02/26/20 13:18 Last Admin: 02/26/20 12:51 Dose: 250 mls/hr Documented by: Sodium Chloride (Normal Saline) 1,000 mls @ 125 mls/hr IV ASDIRECTED [facility] Last Admin: 02/28/20 04:35 Dose: 125 mls/hr Documented by: Sodium Chloride (Normal Saline) 100 mls @ 60 mls/hr IV ASDIRECTED [facility] Stop: 02/26/20 15:00 Last Admin: 02/26/20 13:31 Dose: 60 mls/hr Documented by: Heparin Sodium/Dextrose (Heparin 25,000 Units In D5w 500 Ml) 25,000 units in 500 mls @ 26 mls/hr IV TITRATE NICK; Protocol Last Admin: 02/27/20 23:50 Dose: 13.89 units/kg/hr, 32.699 mls/hr Documented by: Piperacillin Sod/Tazobactam (Sod 4.5 gm/ Sodium Chloride) 100 mls @ 25 mls/hr IV Q8H [facility] Stop: 02/27/20 23:59 Last Admin: 02/27/20 19:02 Dose: 25 mls/hr Documented by: Iopamidol (Isovue-300 (61%)) 100 ml IVPUSH ONETIME ONE Stop: 02/23/20 23:42 Last Admin: 02/23/20 23:42 Dose: 100 ml Documented by: Iopamidol (Isovue-370 (76%)) 100 ml IVPUSH ONETIME ONE Stop: 02/26/20 12:42 Last Admin: 02/26/20 13:30 Dose: 80 ml Documented by: Losartan Potassium (Cozaar) 50 mg PO DAILY [facility] Last Admin: 02/27/20 08:32 Dose: 50 mg Documented by: Olmesartan Medoxomil (20 Mg Ptom) 0 mg PO DAILY [facility] Last Admin: 02/25/20 10:16 Dose: 20 mg Documented by: Ondansetron HCl (Zofran) 4 mg IVPUSH ONETIME ONE Stop: 02/23/20 21:37 Last Admin: 02/23/20 21:55 Dose: 4 mg Documented by: Sodium Chloride (Saline Flush) 10 ml FLUSH ONETIME ONE Stop: 02/23/20 23:42 Last Admin: 02/23/20 23:43 Dose: 10 ml Documented by: Sodium Chloride (Saline Flush) 10 ml FLUSH ONETIME ONE Stop: 02/26/20 12:42 Last Admin: 02/26/20 13:30 Dose: 10 ml Documented by: - Exam Quality Assessment: No: Supplemental Oxygen General: Alert, Oriented HEENT: Pupils Equal, Mucous Membr. Moist/[place] Neck: Supple Lungs: Clear to Auscultation, Normal Respiratory Effort Cardiovascular: Regular Rate, Regular Rhythm GI/Abdominal Exam: Normal Bowel Sounds, Soft, Non-Tender, No Distention Extremities: Normal Inspection, Normal Range of Motion, Non-Tender, No Pedal Edema, Normal Capillary Refill Psy/Mental Status: Alert, Normal Affect, Normal Mood Sepsis Event Note - Evaluation Sepsis Screening Result: No Definite Risk - Focused Exam Vital Signs: Vital Signs Temp Pulse Resp BP Pulse Ox Pulse Ox Pulse Ox 02/28/20 09:11 156/89 H 02/28/20 08:40 92 L 02/28/20 08:06 97.5 F 69 20 156/89 H 94 L 02/28/20 07:54 95 02/28/20 05:54 93 L 02/28/20 04:34 98.1 F 76 18 143/76 H 94 L 02/27/20 23:10 99.0 F 81 20 131/64 93 L - Problem List & Annotations (1) Acute appendicitis SNOMED Code(s): 42790263 Code(s): K35.80 - UNSPECIFIED ACUTE APPENDICITIS Status: Acute Current Visit: Yes (2) COVID-19 SNOMED Code(s): 690865208 Code(s): U07.1 - COVID-19 Status: Acute Current Visit: Yes (3) Chronic renal insufficiency SNOMED Code(s): 544662995 Code(s): N18.9 - CHRONIC KIDNEY DISEASE, UNSPECIFIED Status: Acute Current Visit: Yes (4) Pneumonia due to COVID-19 virus SNOMED Code(s): 759702257924958559 Code(s): U07.1 - COVID-19; J12.89 - OTHER VIRAL PNEUMONIA Status: Acute Current Visit: No (5) Pulmonary embolism associated with COVID-19 SNOMED Code(s): 179414609 Code(s): U07.1 - COVID-19; I26.99 - OTHER PULMONARY EMBOLISM WITHOUT ACUTE COR PULMONALE Status: Acute Current Visit: Yes - Problem List Review Problem List Initiated/Reviewed/Updated: Yes - My Orders Last 24 Hours: My Active Orders 02/27/20 10:00 Saccharomyces Boulardii [Florastor] 250 mg PO BID 02/27/20 12:00 amLODIPine [Norvasc] 5 mg PO DAILY 02/27/20 13:00 Remdesivir (Eua) [Remdesivir (EUA)] 100 mg Sodium Chloride 0.9% [Normal Saline] 100 ml IV Q24H 02/28/20 00:40 GISSEL Hose [Antiembolic Hose] [OM.PC] Routine 02/28/20 08:20 Blood Glucose Check, Bedside [RC] QIDACANDBED Dextrose 50% in Water 50 ml IV ASDIRECTED PRN 02/28/20 09:00 Amoxicillin/Clavulanate K [Augmentin 875 MG/125 MG] 1 tab PO Q12H Apixaban [Eliquis] 10 mg PO BID 02/28/20 11:00 Insulin Lispro [HumaLOG] See Protocol SUBCUT QIDACANDBED - Plan Plan:: Assessment 02/26/2020 * 55-year-old male diagnosed with COVID-19 on February 06, diagnosed with viral pneumonia on February 16, and admitted on February 22 with appendicitis developed worsening hypoxemia overnight. * Chest x-ray improved today from February 16 * D-dimer on February 16 was 0.73 and C-reactive protein of 20 * Appendicitis appears to be improving with decreased pain and improvement in white count. * Possibility patient is having worsening oxygenation secondary to viral pneumonia, more sedentary since he has been hospitalized, or other cause. 02/27/2020 * COVID-19 pneumonia * Bilateral pulmonary embolism without right heart strain * Appendicitis * Mediastinal lymphadenopathy * Stage III renal insufficiency * Hyperglycemia * Diarrhea Improvement in oxygen status overnight. Patient continues on heparin drip without complications. White blood cell count is down to 10.8 and kidney function has improved to a GFR of 36 and creatinine of 1.9. Blood sugars have increased to 222 likely secondary to dexamethasone. 02/28/2020 * COVID-19 pneumonia * Bilateral pulmonary embolism without right heart strain * Appendicitis * Mediastinal lymphadenopathy * Stage III renal insufficiency * Hyperglycemia * Diarrhea * Hypoalbuminemia * Patient continues to improve. He is been weaned off of his oxygen. He is finishing his second day of heparin. He does continue to get short of breath with activity and saturations do drop into the 80s. He has 2 more days after today of remdesivir. His D-dimer has decreased to 3.7 and his GFR is stable at 36. Blood sugars continue to be elevated. * Stools have improved and are more formed. * Albumin down to 1.4 Recommendation/plan * Follow CBC, CMP, mag, phosphorus, D-dimer and C-reactive protein. * Rremdesivir day 3 of 5 * Dexamethasone day 3 of 5. Patient has already completed 5 days prior to admission. * Sliding scale insulin * Switch from Zosyn to Augmentin. * Continue probiotics * Switch from heparin drip to Eliquis 10 mg twice daily for 7 days then 5 mg twice daily for at least 3 months * FiO2 to keep SPO2 between 88 and 94%. * CODE STATUS full code. * Length of stay 2-3 more days. * Length of stay is greater than 96 hours secondary to new onset pulmonary embolism and treatment for COVID-19.
[2020-02-28] MEDS: Insulin Lispro 100 Units/ML 3 ML Vial SUBCUT SCH ×3 (13:00→21:02)
[2020-02-28] MEDS: REMDESIVIR (EUA) 100 MG in Sodium Chloride 0.9% 100 ML IV SCH (13:02)
[2020-02-29] MEDS: Insulin Lispro 100 Units/ML 3 ML Vial SUBCUT SCH ×4 (08:27→21:01)
[2020-02-29] MEDS: amLODIPine 5 MG Tab PO SCH (08:29)
[2020-02-29] MEDS: Multivitamins,Therapeutic Tab PO SCH (08:29)
[2020-02-29] MEDS: Dexamethasone 4 MG Tab PO SCH (08:29)
[2020-02-29] MEDS: Multivitamins with Minerals/Folic Acid/Lutein/Zeaxanth Tab PO SCH (08:30)
[2020-02-29] MEDS: Apixaban 5 MG Tab PO SCH ×2 (08:30→20:48)
[2020-02-29] MEDS: Amoxicillin/Clavulanate K 875-125 MG Tab PO SCH ×2 (08:30→20:48)
[2020-02-29] MEDS: Aspirin 81 MG Tab.EC PO SCH (08:30)
[2020-02-29] MEDS: Saccharomyces Boulardii (Probiotic) 250 MG Cap PO SCH ×2 (08:30→20:48)
[2020-02-29] MEDS: OLMESARTAN MEDOXOMIL 20 MG PO SCH (08:35)
[2020-02-29] MEDS: Polyethylene Glycol 3350 Powder 17 GM Packet PO SCH (08:35)
--- NOTE | 2020-02-29 08:53 | PCM.PN ---
- General Info Date of Service: 02/29/20 Admission Dx/Problem (Free Text): Admission Diagnosis/Problem Admission Diagnosis/Problem Appendicitis Subjective Update: Chinedu continues to feel well. He is off of oxygen and appetite is good. Stools are forming up and pain in the right lower quadrant is improved. Yesterday when he walked he did develop some mild right lower quadrant pain. Functional Status: Reports: Pain Controlled - Review of Systems General: Reports: No Symptoms HEENT: Reports: No Symptoms Pulmonary: Reports: No Symptoms Cardiovascular: Reports: No Symptoms Gastrointestinal: Reports: Abdominal Pain (Mild right lower quadrant) Musculoskeletal: Reports: No Symptoms - Patient Data Vitals - Most Recent: Last Vital Signs Temp 97.9 F 02/29/20 03:45 Pulse 69 02/29/20 03:45 Resp 18 02/29/20 03:45 BP 143/86 H 02/29/20 08:29 Pulse Ox 91 L 02/29/20 03:45 Weight - Most Recent: 120.882 kg I&O - Last 24 Hours: Intake & Output 02/28/20 02/29/20 02/29/20 22:59 06:59 14:59 Intake Total 3105 600 Balance 3105 600 Lab Results Last 24 Hours: Laboratory Results - last 24 hr 02/28/20 02/28/20 02/28/20 Range/Units 11:24 17:39 20:55 POC Glucose 168 H 247 H 260 H (80-115) mg/dL 02/29/20 Range/Units 06:20 POC Glucose 171 H (80-115) mg/dL Med Orders - Current: Current Medications Acetaminophen (Tylenol) 650 mg PO Q4H PRN PRN Reason: Fever Greater Than 101 Hydrocodone Bitart/Acetaminophen (Gruver 325-5 Mg) 1 tab PO Q4H PRN PRN Reason: Abdominal Pain Amlodipine Besylate (Norvasc) 5 mg PO DAILY [facility], [facility] Last Admin: 02/29/20 08:29 Dose: 5 mg Documented by: Amoxicillin/Clavulanate Potassium (Augmentin 875 Mg/125 Mg) 1 tab PO Q12H [facility] Last Admin: 02/29/20 08:30 Dose: 1 tab Documented by: Apixaban (Eliquis) 10 mg PO BID [facility], [facility] Last Admin: 02/29/20 08:30 Dose: 10 mg Documented by: Aspirin (Halfprin) 81 mg PO DAILY [facility] Last Admin: 02/29/20 08:30 Dose: 81 mg Documented by: Benzonatate (Tessalon Perles) 100 mg PO Q8H PRN PRN Reason: Cough Dexamethasone (Dexamethasone) 6 mg PO DAILY [facility]1983 Stop: 03/06/20 09:01 Last Admin: 02/29/20 08:29 Dose: 6 mg Documented by: Dextrose/Water (Dextrose 50% In Water) 50 ml IV ASDIRECTED PRN PRN Reason: Hypoglycemia Hydromorphone HCl (Dilaudid) 1 mg IVPUSH Q2H PRN PRN Reason: Pain Last Admin: 02/25/20 03:15 Dose: 1 mg Documented by: Remdesivir 100 mg/ Sodium (Chloride) 100 mls @ 100 mls/hr IV Q24H [facility] Stop: 03/01/20 13:59 Last Admin: 02/28/20 13:02 Dose: 100 mls/hr Documented by: Insulin Human Lispro (Humalog) 0 unit SUBCUT QIDACANDBED [facility], [facility]; Protocol Last Admin: 02/29/20 08:27 Dose: 1 unit Documented by: Multivitamins (Thera) 1 each PO DAILY [facility] Last Admin: 02/29/20 08:29 Dose: 1 each Documented by: Olmesartan Medoxomil (20 Mg Ptom) 0 mg PO DAILY [facility] Last Admin: 02/29/20 08:35 Dose: 20 mg Documented by: Ondansetron HCl (Zofran) 4 mg IVPUSH Q8H PRN PRN Reason: Nausea/Vomiting Polyethylene Glycol (Miralax) 17 gm PO DAILY [facility] Last Admin: 02/29/20 08:35 Dose: Not Given Documented by: Saccharomyces Boulardii (Florastor) 250 mg PO BID [facility] Last Admin: 02/29/20 08:30 Dose: 250 mg Documented by: Vit A/Vit C/Vit E/Selen/Cu/Zn/Lutei (Icaps Mv) 1 tab PO DAILY [facility] Last Admin: 02/29/20 08:30 Dose: 1 tab Documented by: Discontinued Medications Amlodipine Besylate (Norvasc) 5 mg PO DAILY [facility]1983 Aspirin (Aspirin) 81 mg PO DAILY [facility] Last Admin: 02/24/20 09:58 Dose: 81 mg Documented by: Diatrizoate Meglum/Diatrizoate Sod (Gastrografin 37%) 120 ml PO ONETIME ONE Stop: 02/23/20 23:42 Last Admin: 02/23/20 23:42 Dose: 120 ml Documented by: Heparin Sodium (Porcine) (Heparin Sodium) 5,000 units SUBCUT Q12H [facility] Last Admin: 02/25/20 23:40 Dose: 5,000 units Documented by: Heparin Sodium (Porcine) (Heparin Sodium) 5,000 units SUBCUT Q12H [facility] Last Admin: 02/26/20 09:28 Dose: 5,000 units Documented by: Heparin Sodium (Porcine) (Heparin Sodium) 5,000 units IVPUSH .BOLUS ONE Stop: 02/26/20 14:31 Last Admin: 02/26/20 15:51 Dose: 5,000 units Documented by: Heparin Sodium (Porcine) (Heparin Sodium) 1,500 units IVPUSH ONETIME ONE Stop: 02/26/20 22:21 Last Admin: 02/26/20 22:35 Dose: 1,500 units Documented by: Hydromorphone HCl (Dilaudid) 1 mg IVPUSH ONETIME ONE Stop: 02/23/20 21:36 Last Admin: 02/23/20 21:55 Dose: 1 mg Documented by: Sodium Chloride (Normal Saline) 1,000 mls @ 150 mls/hr IV ASDIRECTED [facility] Stop: 02/23/20 23:59 Last Admin: 02/23/20 21:52 Dose: 150 mls/hr Documented by: Piperacillin Sod/Tazobactam (Sod 4.5 gm/ Sodium Chloride) 100 mls @ 200 mls/hr IV ONETIME ONE Stop: 02/24/20 00:28 Last Admin: 02/24/20 00:20 Dose: 200 mls/hr Documented by: Lactated Ringer's (Ringers, Lactated) 1,000 mls @ 125 mls/hr IV ASDIRECTED [facility] Last Admin: 02/24/20 00:21 Dose: 125 mls/hr Documented by: Lactated Ringer's (Ringers, Lactated) 1,000 mls @ 125 mls/hr IV ASDIRECTED [facility] Last Admin: 02/24/20 21:12 Dose: 125 mls/hr Documented by: Piperacillin Sod/Tazobactam (Sod 4.5 gm/ Sodium Chloride) 100 mls @ 25 mls/hr IV Q8H NICK Stop: 02/27/20 23:59 Last Admin: 02/27/20 08:30 Dose: 25 mls/hr Documented by: Magnesium Sulfate (Magnesium Sulfate In Water Premix) 2 gm in 50 mls @ 25 mls/hr IV ONETIME ONE Stop: 02/25/20 11:59 Last Admin: 02/25/20 12:16 Dose: 25 mls/hr Documented by: Remdesivir 200 mg/ Sodium (Chloride) 250 mls @ 250 mls/hr IV ONETIME ONE Stop: 02/26/20 12:29 Last Admin: 02/26/20 12:50 Dose: 250 mls/hr Documented by: Remdesivir 100 mg/ Sodium (Chloride) 100 mls @ 100 mls/hr IV DAILY NICK Stop: 03/01/20 09:59 Sodium Chloride (Normal Saline) 250 mls @ 250 mls/hr IV .BOLUS ONE Stop: 02/26/20 13:18 Last Admin: 02/26/20 12:51 Dose: 250 mls/hr Documented by: Sodium Chloride (Normal Saline) 1,000 mls @ 125 mls/hr IV ASDIRECTED NICK Last Admin: 02/28/20 04:35 Dose: 125 mls/hr Documented by: Sodium Chloride (Normal Saline) 100 mls @ 60 mls/hr IV ASDIRECTED NICK Stop: 02/26/20 15:00 Last Admin: 02/26/20 13:31 Dose: 60 mls/hr Documented by: Heparin Sodium/Dextrose (Heparin 25,000 Units In D5w 500 Ml) 25,000 units in 500 mls @ 26 mls/hr IV TITRATE NICK; Protocol Last Admin: 02/27/20 23:50 Dose: 13.89 units/kg/hr, 32.699 mls/hr Documented by: Piperacillin Sod/Tazobactam (Sod 4.5 gm/ Sodium Chloride) 100 mls @ 25 mls/hr IV Q8H NICK Stop: 02/27/20 23:59 Last Admin: 02/27/20 19:02 Dose: 25 mls/hr Documented by: Iopamidol (Isovue-300 (61%)) 100 ml IVPUSH ONETIME ONE Stop: 02/23/20 23:42 Last Admin: 02/23/20 23:42 Dose: 100 ml Documented by: Iopamidol (Isovue-370 (76%)) 100 ml IVPUSH ONETIME ONE Stop: 02/26/20 12:42 Last Admin: 02/26/20 13:30 Dose: 80 ml Documented by: Losartan Potassium (Cozaar) 50 mg PO DAILY [facility] Last Admin: 02/27/20 08:32 Dose: 50 mg Documented by: Olmesartan Medoxomil (20 Mg Ptom) 0 mg PO DAILY [facility] Last Admin: 02/25/20 10:16 Dose: 20 mg Documented by: Ondansetron HCl (Zofran) 4 mg IVPUSH ONETIME ONE Stop: 02/23/20 21:37 Last Admin: 02/23/20 21:55 Dose: 4 mg Documented by: Sodium Chloride (Saline Flush) 10 ml FLUSH ONETIME ONE Stop: 02/23/20 23:42 Last Admin: 02/23/20 23:43 Dose: 10 ml Documented by: Sodium Chloride (Saline Flush) 10 ml FLUSH ONETIME ONE Stop: 02/26/20 12:42 Last Admin: 02/26/20 13:30 Dose: 10 ml Documented by: - Exam Quality Assessment: No: Supplemental Oxygen General: Alert, Oriented HEENT: Pupils Equal, Mucous Membr. Moist/[place] Neck: Supple Lungs: Clear to Auscultation, Normal Respiratory Effort Cardiovascular: Regular Rate, Regular Rhythm GI/Abdominal Exam: Normal Bowel Sounds, Soft, Non-Tender, No Organomegaly, No Distention. No: Guarding, Rigid, Rebound Back Exam: Normal Inspection Extremities: Normal Inspection, Normal Range of Motion, Non-Tender, No Pedal Edema, Normal Capillary Refill Skin: Warm, Dry, Intact Psy/Mental Status: Alert, Normal Affect, Normal Mood Sepsis Event Note - Evaluation Sepsis Screening Result: No Definite Risk - Focused Exam Vital Signs: Vital Signs Temp Pulse Resp BP BP Pulse Ox 02/29/20 08:29 143/86 H 02/29/20 03:53 148/86 H 02/29/20 03:45 97.9 F 69 18 91 L 02/28/20 21:02 146/84 H - Problem List & Annotations (1) Acute appendicitis SNOMED Code(s): 72370834 Code(s): K35.80 - UNSPECIFIED ACUTE APPENDICITIS Status: Acute Current Visit: Yes (2) COVID-19 SNOMED Code(s): 531606779 Code(s): U07.1 - COVID-19 Status: Acute Current Visit: Yes (3) Chronic renal insufficiency SNOMED Code(s): 868017020 Code(s): N18.9 - CHRONIC KIDNEY DISEASE, UNSPECIFIED Status: Acute Current Visit: Yes (4) Pneumonia due to COVID-19 virus SNOMED Code(s): 968898232113575860 Code(s): U07.1 - COVID-19; J12.89 - OTHER VIRAL PNEUMONIA Status: Acute Current Visit: No (5) Pulmonary embolism associated with COVID-19 SNOMED Code(s): 065658326 Code(s): U07.1 - COVID-19; I26.99 - OTHER PULMONARY EMBOLISM WITHOUT ACUTE COR PULMONALE Status: Acute Current Visit: Yes - Problem List Review Problem List Initiated/Reviewed/Updated: Yes - My Orders Last 24 Hours: My Active Orders 02/28/20 08:20 Blood Glucose Check, Bedside [RC] QIDACANDBED Dextrose 50% in Water 50 ml IV ASDIRECTED PRN 02/28/20 09:00 Amoxicillin/Clavulanate K [Augmentin 875 MG/125 MG] 1 tab PO Q12H Apixaban [Eliquis] 10 mg PO BID 02/28/20 11:00 Insulin Lispro [HumaLOG] See Protocol SUBCUT QIDACANDBED 02/29/20 00:22 Up ad Gunjan [RC] ASDIRECTED - Plan Plan:: Assessment 02/26/2020 * 55-year-old male diagnosed with COVID-19 on February 06, diagnosed with viral pneumonia on February 16, and admitted on February 22 with appendicitis developed worsening hypoxemia overnight. * Chest x-ray improved today from February 16 * D-dimer on February 16 was 0.73 and C-reactive protein of 20 * Appendicitis appears to be improving with decreased pain and improvement in white count. * Possibility patient is having worsening oxygenation secondary to viral pneumonia, more sedentary since he has been hospitalized, or other cause. 02/27/2020 * COVID-19 pneumonia * Bilateral pulmonary embolism without right heart strain * Appendicitis * Mediastinal lymphadenopathy * Stage III renal insufficiency * Hyperglycemia * Diarrhea Improvement in oxygen status overnight. Patient continues on heparin drip without complications. White blood cell count is down to 10.8 and kidney function has improved to a GFR of 36 and creatinine of 1.9. Blood sugars have increased to 222 likely secondary to dexamethasone. 02/28/2020 * COVID-19 pneumonia * Bilateral pulmonary embolism without right heart strain * Appendicitis * Mediastinal lymphadenopathy * Stage III renal insufficiency * Hyperglycemia * Diarrhea * Hypoalbuminemia * Patient continues to improve. He is been weaned off of his oxygen. He is finishing his second day of heparin. He does continue to get short of breath with activity and saturations do drop into the 80s. He has 2 more days after today of remdesivir. His D-dimer has decreased to 3.7 and his GFR is stable at 36. Blood sugars continue to be elevated. * Stools have improved and are more formed. * Albumin down to 1.4 02/29/2020 * COVID-19 pneumonia * Bilateral pulmonary embolism without right heart strain * Appendicitis * Mediastinal lymphadenopathy * Stage III renal insufficiency * Hyperglycemia * Diarrhea * Hypoalbuminemia * Patient continues to be off oxygen and saturations are in the mid 90s. He is able to walk without significant shortness of breath or desaturation. * Abdominal pain has improved and he has been switched to Augmentin. * No labs done today. * Patient on Eliquis without complications. Recommendation/plan * Follow CBC, CMP, mag, phosphorus, D-dimer and C-reactive protein. * Rremdesivir day 4 of 5 * Dexamethasone day 4 of 5. Patient has already completed 5 days prior to admission. * Continue sliding scale insulin * Continue Augmentin. * Continue probiotics * Continue Eliquis 10 mg twice daily for 7 days then 5 mg twice daily for at least 3 months * FiO2 to keep SPO2 between 88 and 94%. * CODE STATUS full code. * Length of stay 1-2 more days. * Length of stay is greater than 96 hours secondary to new onset pulmonary embolism and treatment for COVID-19.
[2020-02-29] MEDS: REMDESIVIR (EUA) 100 MG in Sodium Chloride 0.9% 100 ML IV SCH (14:10)
[2020-03-01] MEDS: Saccharomyces Boulardii (Probiotic) 250 MG Cap PO SCH (09:28)
[2020-03-01] MEDS: Aspirin 81 MG Tab.EC PO SCH (09:28)
[2020-03-01] MEDS: Dexamethasone 4 MG Tab PO SCH (09:28)
[2020-03-01] MEDS: Multivitamins with Minerals/Folic Acid/Lutein/Zeaxanth Tab PO SCH (09:29)
[2020-03-01] MEDS: amLODIPine 5 MG Tab PO SCH (09:29)
[2020-03-01] MEDS: Amoxicillin/Clavulanate K 875-125 MG Tab PO SCH (09:29)
[2020-03-01] MEDS: Multivitamins,Therapeutic Tab PO SCH (09:29)
[2020-03-01] MEDS: Apixaban 5 MG Tab PO SCH (09:32)
[2020-03-01] MEDS: Insulin Lispro 100 Units/ML 3 ML Vial SUBCUT SCH ×2 (09:33→12:32)
[2020-03-01] MEDS: OLMESARTAN MEDOXOMIL 20 MG PO SCH (09:46)
[2020-03-01] MEDS: Polyethylene Glycol 3350 Powder 17 GM Packet PO SCH (11:28)
[2020-03-01] MEDS: REMDESIVIR (EUA) 100 MG in Sodium Chloride 0.9% 100 ML IV SCH (12:12)
--- NOTE | 2020-03-01 13:58 | PCM.DCSUM1 ---
Discharge Summary - Hospital Course HPI Initial Comments: 65 y/o male presents with RLQ abdominal pain that has been present for 2 days. This is worse with movement. He has obstipation with last bowel movement 2 days ago. 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 He has had decreased appetite, but this was concurrent with his recent COVID illness. He was diagnosed with COVID 18d ago, but became symptomatic 12 days ago. He continues to have cough and dyspnea with exercise. He denies any cough at baseline. He completed a course of steroids for COVID 3d ago. He was seen and evaluated in the ED, with CT findings of appendicitis. He was admitted for antibiotics and plan for surgery. Per nursing, he required some oxygen overnight (0.5L) via nasal cannula for desaturations, and has been short of breath with activity. Pt has also had a cough. Assessment/Plan Comment:: 65 y/o male with continued COVID symptoms, also with acute appendicitis - will treat with antibiotics due to continued COVID symptoms and CT lung changes - clear liquid diet - IVF rehydration - DVT PPX: ambulation with assist, SCDs, heparin subQ Will continue to monitor abdominal exam. If continues to improve on exam, will do appendectomy as an outpatient. Shanell Marcus MD General surgery Diagnosis: Stroke: No - Discharge Data Discharge Date: 03/01/20 Discharge Disposition: Home, Self-Care 01 Condition: Good - Referral to Home Health Primary Care Physician: Wesley Mcclain MD - Discharge Diagnosis/Problem(s) (1) Acute appendicitis SNOMED Code(s): 85084927 ICD Code: K35.80 - UNSPECIFIED ACUTE APPENDICITIS Status: Acute Current Visit: Yes (2) COVID-19 SNOMED Code(s): 099008944 ICD Code: U07.1 - COVID-19 Status: Acute Current Visit: Yes (3) Chronic renal insufficiency SNOMED Code(s): 056014511 ICD Code: N18.9 - CHRONIC KIDNEY DISEASE, UNSPECIFIED Status: Acute Current Visit: Yes (4) Pneumonia due to COVID-19 virus SNOMED Code(s): 834116977490525338 ICD Code: U07.1 - COVID-19; J12.89 - OTHER VIRAL PNEUMONIA Status: Acute Current Visit: No (5) Pulmonary embolism associated with COVID-19 SNOMED Code(s): 759292953 ICD Code: U07.1 - COVID-19; I26.99 - OTHER PULMONARY EMBOLISM WITHOUT ACUTE COR PULMONALE Status: Acute Current Visit: Yes - Patient Summary/Data Consults: Consultations 02/26/20 10:16 Consult to Physician [CONS] Routine Hospital Course: 65-year-old male admitted with acute appendicitis and treated with antibiotics secondary to being positive for Covid, CT lung changes, and requiring oxygen. Patient required 0.5 L/min via nasal cannula on admission. Patient was admitted by Dr. Huston and surgery. Patient had a significant improvement in his abdominal pain over the first few days of hospitalization, but his oxygenation deteriorated. Patient require 1 to 2 L via nasal cannula and at that point the hospitalist service was consulted. Hospitalist service did standard lab work-up for COVID-19 and he was found to have a significantly elevated D-dimer. CTA of the chest was then performed which showed bilateral pulmonary emboli. Also there was diffuse patchy airspace opacities throughout both lung adkins consistent with viral pneumonia. Patient was then placed on heparin drip and started on remdesivir. Patient had been on 5 days of dexamethasone the week earlier so he was replaced on dexamethasone 6 mg daily for total of 5 days. 48 hours after starting heparin he was switched to Eliquis and slowly weaned off of oxygen. On day of discharge patient was doing well, off oxygen, had finished 5 days of remdesivir and dexamethasone, and his abdominal pain was essentially resolved. He was also switched to Augmentin. Patient was discharged on Eliquis 10 mg twice daily for 7 days then 5 mg twice daily after that. He should be on a minimum of 3 months of anticoagulation. He understands this will delay his surgery for his appendicitis. Patient will also finish 3 more days of Augmentin completing a total of 10 days of antibio tics. - Patient Instructions Diet: Usual Diet as Tolerated Driving: May Drive Today Showering/Bathing: May Shower Notify Provider of: Fever, Nausea and/or Vomiting Other/Special Instructions: Follow up with your PCP and Dr. Huston in 2 weeks. - Discharge Plan *PRESCRIPTION DRUG MONITORING PROGRAM REVIEWED*: Not Applicable *COPY OF PRESCRIPTION DRUG MONITORING REPORT IN PATIENT BUCK: Not Applicable Prescriptions/Med Rec: Amoxicillin/Clavulanate K [Augmentin 875-125 MG] 1 tab PO Q12H #6 tablet Apixaban [Eliquis] 10 mg PO BID #74 tablet Saccharomyces Boulardii [Florastor] 250 mg PO BID #60 cap Home Medications: Home Meds Aspirin 81 mg PO DAILY 06/03/19 [History] B2/Vits A,C,E/Lut/Zeaxanth/Min [Icaps] 1 tab PO DAILY 06/03/19 [History] Multivitamin [Multivitamins] 1 tab PO DAILY 06/03/19 [History] Olmesartan Medoxomil [Benicar] 20 mg PO DAILY 06/03/19 [History] Benzonatate [Tessalon Perle] 100 - 200 mg PO Q8H PRN #20 capsule 02/17/20 [Rx] Non-Formulary Medication [NF Drug] 1 tab PO DAILY 02/24/20 [History] amLODIPine [Norvasc] 5 mg PO DAILY 02/27/20 [History] Amoxicillin/Clavulanate K [Augmentin 875-125 MG] 1 tab PO Q12H #6 tablet 03/01/20 [Rx] Apixaban [Eliquis] 10 mg PO BID #74 tablet 03/01/20 [Rx] Saccharomyces Boulardii [Florastor] 250 mg PO BID #60 cap 03/01/20 [Rx] amLODIPine [Norvasc] 5 mg PO DAILY tablet 03/01/20 [Rx] Oxygen Therapy Mode: Room Air Patient Handouts: COVID-19 Frequently Asked Questions, COVID-19, Sepsis, Diagnosis, Adult, Infection Prevention in the Home, Apixaban oral tablets, Prevent the Spread of COVID-19 if You Are Sick - [facility] Forms: ED Department Discharge Referrals: Wesley Mcclain MD [Primary Care Provider] - - Discharge Summary/Plan Comment DC Time >30 min.: Yes Discharge Summary/Plan Comment: Discharged home in good condition. Continue Eliquis as above. Finish 3 more days of Augmentin twice daily Follow-up with your primary care provider and Dr. Huston in 2 weeks. - General Info Date of Service: 03/01/20 Admission Dx/Problem (Free Text: Admission Diagnosis/Problem Admission Diagnosis/Problem Appendicitis Subjective Update: Off of oxygen. Doing well and appetite is good. Ready to go home. Functional Status: Reports: Pain Controlled - Review of Systems General: Reports: No Symptoms HEENT: Reports: No Symptoms Pulmonary: Reports: No Symptoms Cardiovascular: Reports: No Symptoms Gastrointestinal: Reports: No Symptoms Musculoskeletal: Reports: No Symptoms - Patient Data Vitals - Most Recent: Last Vital Signs Temp 97.5 F 03/01/20 09:00 Pulse 73 03/01/20 09:00 Resp 16 03/01/20 09:00 BP 130/77 03/01/20 09:29 Pulse Ox 98 03/01/20 09:00 Weight - Most Recent: 117.934 kg I&O - Last 24 hours: Intake & Output 02/29/20 03/01/20 03/01/20 23:59 06:59 14:59 Intake Total 120 Output Total Balance 120 Lab Results - Last 24 hrs: Laboratory Results - last 24 hr 02/29/20 02/29/20 03/01/20 Range/Units 17:06 21:00 05:25 WBC 12.74 H (4.23-9.07) K/mm3 RBC 4.42 L (4.63-6.08) M/mm3 Hgb 12.4 L (13.7-17.5) gm/dl Hct 38.6 L (40.1-51.0) % MCV 87.3 (79.0-92.2) fl MCH 28.1 (25.7-32.2) pg MCHC 32.1 L (32.2-35.5) g/dl RDW Std Deviation 43.0 (35.1-43.9) fL Plt Count 389 H (163-337) K/mm3 MPV 9.4 (9.4-12.3) fl Neut % (Auto) 73.8 H (34.0-67.9) % Lymph % (Auto) 12.1 L (21.8-53.1) % [place] % (Auto) 9.1 (5.3-12.2) % Eos % (Auto) 0.1 L (0.8-7.0) Baso % (Auto) 0.1 (0.1-1.2) % Neut # (Auto) 9.41 H (1.78-5.38) K/mm3 Lymph # (Auto) 1.54 (1.32-3.57) K/mm3 [place] # (Auto) 1.16 H (0.30-0.82) K/mm3 Eos # (Auto) 0.01 L (0.04-0.54) K/mm3 Baso # (Auto) 0.01 (0.01-0.08) K/mm3 Manual Slide Review Abnormal smear D-Dimer, Quantitative (0.19-0.50) mg/L Sodium (136-145) mEq/L Potassium (3.5-5.1) mEq/L Chloride (98-107) mEq/L Carbon Dioxide (21-32) mEq/L Anion Gap (5-15) BUN (7-18) mg/dL Creatinine (0.7-1.3) mg/dL Est Cr Clr Drug Dosing mL/min Estimated GFR (MDRD) (>60) mL/min BUN/Creatinine Ratio (14-18) Glucose (80-115) mg/dL POC Glucose 277 H 264 H (80-115) mg/dL Calcium (8.5-10.1) mg/dL Phosphorus (2.6-4.7) mg/dL Magnesium (1.8-2.4) mg/dl Total Bilirubin (0.2-1.0) mg/dL AST (15-37) U/L ALT (16-63) U/L Alkaline Phosphatase (46-116) U/L C-Reactive Protein (<1.0) mg/dL Total Protein (6.4-8.2) g/dl Albumin (3.4-5.0) g/dl Globulin gm/dL Albumin/Globulin Ratio (1-2) 03/01/20 03/01/20 03/01/20 Range/Units 05:25 05:25 07:29 WBC (4.23-9.07) K/mm3 RBC (4.63-6.08) M/mm3 Hgb (13.7-17.5) gm/dl Hct (40.1-51.0) % MCV (79.0-92.2) fl MCH (25.7-32.2) pg MCHC (32.2-35.5) g/dl RDW Std Deviation (35.1-43.9) fL Plt Count (163-337) K/mm3 MPV (9.4-12.3) fl Neut % (Auto) (34.0-67.9) % Lymph % (Auto) (21.8-53.1) % [place] % (Auto) (5.3-12.2) % Eos % (Auto) (0.8-7.0) Baso % (Auto) (0.1-1.2) % Neut # (Auto) (1.78-5.38) K/mm3 Lymph # (Auto) (1.32-3.57) K/mm3 [place] # (Auto) (0.30-0.82) K/mm3 Eos # (Auto) (0.04-0.54) K/mm3 Baso # (Auto) (0.01-0.08) K/mm3 Manual Slide Review D-Dimer, Quantitative 3.54 H (0.19-0.50) mg/L Sodium 140 (136-145) mEq/L Potassium 4.3 (3.5-5.1) mEq/L Chloride 107 (98-107) mEq/L Carbon Dioxide 26 (21-32) mEq/L Anion Gap 11.3 (5-15) BUN 30 H (7-18) mg/dL Creatinine 1.7 H (0.7-1.3) mg/dL Est Cr Clr Drug Dosing 49.70 mL/min Estimated GFR (MDRD) 41 (>60) mL/min BUN/Creatinine Ratio 17.6 (14-18) Glucose 148 H (80-115) mg/dL POC Glucose 142 H (80-115) mg/dL Calcium 8.4 L (8.5-10.1) mg/dL Phosphorus 3.3 (2.6-4.7) mg/dL Magnesium 1.6 L (1.8-2.4) mg/dl Total Bilirubin 0.4 (0.2-1.0) mg/dL AST 37 (15-37) U/L ALT 93 H (16-63) U/L Alkaline Phosphatase 120 H (46-116) U/L C-Reactive Protein 2.7 H* (<1.0) mg/dL Total Protein 5.2 L (6.4-8.2) g/dl Albumin 1.8 L (3.4-5.0) g/dl Globulin 3.4 gm/dL Albumin/Globulin Ratio 0.5 L (1-2) 03/01/20 Range/Units 11:22 WBC (4.23-9.07) K/mm3 RBC (4.63-6.08) M/mm3 Hgb (13.7-17.5) gm/dl Hct (40.1-51.0) % MCV (79.0-92.2) fl MCH (25.7-32.2) pg MCHC (32.2-35.5) g/dl RDW Std Deviation (35.1-43.9) fL Plt Count (163-337) K/mm3 MPV (9.4-12.3) fl Neut % (Auto) (34.0-67.9) % Lymph % (Auto) (21.8-53.1) % [place] % (Auto) (5.3-12.2) % Eos % (Auto) (0.8-7.0) Baso % (Auto) (0.1-1.2) % Neut # (Auto) (1.78-5.38) K/mm3 Lymph # (Auto) (1.32-3.57) K/mm3 [place] # (Auto) (0.30-0.82) K/mm3 Eos # (Auto) (0.04-0.54) K/mm3 Baso # (Auto) (0.01-0.08) K/mm3 Manual Slide Review D-Dimer, Quantitative (0.19-0.50) mg/L Sodium (136-145) mEq/L Potassium (3.5-5.1) mEq/L Chloride (98-107) mEq/L Carbon Dioxide (21-32) mEq/L Anion Gap (5-15) BUN (7-18) mg/dL Creatinine (0.7-1.3) mg/dL Est Cr Clr Drug Dosing mL/min Estimated GFR (MDRD) (>60) mL/min BUN/Creatinine Ratio (14-18) Glucose (80-115) mg/dL POC Glucose 195 H (80-115) mg/dL Calcium (8.5-10.1) mg/dL Phosphorus (2.6-4.7) mg/dL Magnesium (1.8-2.4) mg/dl Total Bilirubin (0.2-1.0) mg/dL AST (15-37) U/L ALT (16-63) U/L Alkaline Phosphatase (46-116) U/L C-Reactive Protein (<1.0) mg/dL Total Protein (6.4-8.2) g/dl Albumin (3.4-5.0) g/dl Globulin gm/dL Albumin/Globulin Ratio (1-2) Med Orders - Current: Current Medications Acetaminophen (Tylenol) 650 mg PO Q4H PRN PRN Reason: Fever Greater Than 101 Hydrocodone Bitart/Acetaminophen (Modena 325-5 Mg) 1 tab PO Q4H PRN PRN Reason: Abdominal Pain Amlodipine Besylate (Norvasc) 5 mg PO DAILY [facility] Last Admin: 03/01/20 09:29 Dose: 5 mg Documented by: Amoxicillin/Clavulanate Potassium (Augmentin 875 Mg/125 Mg) 1 tab PO Q12H [facility] Last Admin: 03/01/20 09:29 Dose: 1 tab Documented by: Apixaban (Eliquis) 10 mg PO BID [facility] Last Admin: 03/01/20 09:32 Dose: 10 mg Documented by: Aspirin (Halfprin) 81 mg PO DAILY [facility] Last Admin: 03/01/20 09:28 Dose: 81 mg Documented by: Benzonatate (Tessalon Perles) 100 mg PO Q8H PRN PRN Reason: Cough Dexamethasone (Dexamethasone) 6 mg PO DAILY [facility] Stop: 03/06/20 09:01 Last Admin: 03/01/20 09:28 Dose: 6 mg Documented by: Dextrose/Water (Dextrose 50% In Water) 50 ml IV ASDIRECTED PRN PRN Reason: Hypoglycemia Hydromorphone HCl (Dilaudid) 1 mg IVPUSH Q2H PRN PRN Reason: Pain Last Admin: 02/25/20 03:15 Dose: 1 mg Documented by: Remdesivir 100 mg/ Sodium (Chloride) 100 mls @ 100 mls/hr IV Q24H [facility] Stop: 03/01/20 13:59 Last Admin: 03/01/20 12:12 Dose: 100 mls/hr Documented by: Insulin Human Lispro (Humalog) 0 unit SUBCUT QIDACANDBED [facility]; Protocol Last Admin: 03/01/20 12:32 Dose: 1 unit Documented by: Multivitamins (Thera) 1 each PO DAILY [facility] Last Admin: 03/01/20 09:29 Dose: 1 each Documented by: Olmesartan Medoxomil (20 Mg Ptom) 0 mg PO DAILY [facility] Last Admin: 03/01/20 09:46 Dose: 20 mg Documented by: Ondansetron HCl (Zofran) 4 mg IVPUSH Q8H PRN PRN Reason: Nausea/Vomiting Polyethylene Glycol (Miralax) 17 gm PO DAILY [facility] Last Admin: 03/01/20 11:28 Dose: Not Given Documented by: Saccharomyces Boulardii (Florastor) 250 mg PO BID [facility] Last Admin: 03/01/20 09:28 Dose: 250 mg Documented by: Vit A/Vit C/Vit E/Selen/Cu/Zn/Lutei (Icaps Mv) 1 tab PO DAILY [facility] Last Admin: 03/01/20 09:29 Dose: 1 tab Documented by: Discontinued Medications Amlodipine Besylate (Norvasc) 5 mg PO DAILY [facility] Aspirin (Aspirin) 81 mg PO DAILY [facility] Last Admin: 02/24/20 09:58 Dose: 81 mg Documented by: Diatrizoate Meglum/Diatrizoate Sod (Gastrografin 37%) 120 ml PO ONETIME ONE Stop: 02/23/20 23:42 Last Admin: 02/23/20 23:42 Dose: 120 ml Documented by: Heparin Sodium (Porcine) (Heparin Sodium) 5,000 units SUBCUT Q12H [facility] Last Admin: 02/25/20 23:40 Dose: 5,000 units Documented by: Heparin Sodium (Porcine) (Heparin Sodium) 5,000 units SUBCUT Q12H [facility] Last Admin: 02/26/20 09:28 Dose: 5,000 units Documented by: Heparin Sodium (Porcine) (Heparin Sodium) 5,000 units IVPUSH .BOLUS ONE Stop: 02/26/20 14:31 Last Admin: 02/26/20 15:51 Dose: 5,000 units Documented by: Heparin Sodium (Porcine) (Heparin Sodium) 1,500 units IVPUSH ONETIME ONE Stop: 02/26/20 22:21 Last Admin: 02/26/20 22:35 Dose: 1,500 units Documented by: Hydromorphone HCl (Dilaudid) 1 mg IVPUSH ONETIME ONE Stop: 02/23/20 21:36 Last Admin: 02/23/20 21:55 Dose: 1 mg Documented by: Sodium Chloride (Normal Saline) 1,000 mls @ 150 mls/hr IV ASDIRECTED [facility] Stop: 02/23/20 23:59 Last Admin: 02/23/20 21:52 Dose: 150 mls/hr Documented by: Piperacillin Sod/Tazobactam (Sod 4.5 gm/ Sodium Chloride) 100 mls @ 200 mls/hr IV ONETIME ONE Stop: 02/24/20 00:28 Last Admin: 02/24/20 00:20 Dose: 200 mls/hr Documented by: Lactated Ringer's (Ringers, Lactated) 1,000 mls @ 125 mls/hr IV ASDIRECTED [facility] Last Admin: 02/24/20 00:21 Dose: 125 mls/hr Documented by: Lactated Ringer's (Ringers, Lactated) 1,000 mls @ 125 mls/hr IV ASDIRECTED [facility] Last Admin: 02/24/20 21:12 Dose: 125 mls/hr Documented by: Piperacillin Sod/Tazobactam (Sod 4.5 gm/ Sodium Chloride) 100 mls @ 25 mls/hr IV Q8H [facility] Stop: 02/27/20 23:59 Last Admin: 02/27/20 08:30 Dose: 25 mls/hr Documented by: Magnesium Sulfate (Magnesium Sulfate In Water Premix) 2 gm in 50 mls @ 25 mls/hr IV ONETIME ONE Stop: 02/25/20 11:59 Last Admin: 02/25/20 12:16 Dose: 25 mls/hr Documented by: Remdesivir 200 mg/ Sodium (Chloride) 250 mls @ 250 mls/hr IV ONETIME ONE Stop: 02/26/20 12:29 Last Admin: 02/26/20 12:50 Dose: 250 mls/hr Documented by: Remdesivir 100 mg/ Sodium (Chloride) 100 mls @ 100 mls/hr IV DAILY [facility] Stop: 03/01/20 09:59 Sodium Chloride (Normal Saline) 250 mls @ 250 mls/hr IV .BOLUS ONE Stop: 02/26/20 13:18 Last Admin: 02/26/20 12:51 Dose: 250 mls/hr Documented by: Sodium Chloride (Normal Saline) 1,000 mls @ 125 mls/hr IV ASDIRECTED [facility] Last Admin: 02/28/20 04:35 Dose: 125 mls/hr Documented by: Sodium Chloride (Normal Saline) 100 mls @ 60 mls/hr IV ASDIRECTED [facility] Stop: 02/26/20 15:00 Last Admin: 02/26/20 13:31 Dose: 60 mls/hr Documented by: Heparin Sodium/Dextrose (Heparin 25,000 Units In D5w 500 Ml) 25,000 units in 500 mls @ 26 mls/hr IV TITRATE [facility]; Protocol Last Admin: 02/27/20 23:50 Dose: 13.89 units/kg/hr, 32.699 mls/hr Documented by: Piperacillin Sod/Tazobactam (Sod 4.5 gm/ Sodium Chloride) 100 mls @ 25 mls/hr IV Q8H [facility] Stop: 02/27/20 23:59 Last Admin: 02/27/20 19:02 Dose: 25 mls/hr Documented by: Iopamidol (Isovue-300 (61%)) 100 ml IVPUSH ONETIME ONE Stop: 02/23/20 23:42 Last Admin: 02/23/20 23:42 Dose: 100 ml Documented by: Iopamidol (Isovue-370 (76%)) 100 ml IVPUSH ONETIME ONE Stop: 02/26/20 12:42 Last Admin: 02/26/20 13:30 Dose: 80 ml Documented by: Losartan Potassium (Cozaar) 50 mg PO DAILY [facility] Last Admin: 02/27/20 08:32 Dose: 50 mg Documented by: Olmesartan Medoxomil (20 Mg Ptom) 0 mg PO DAILY [facility] Last Admin: 02/25/20 10:16 Dose: 20 mg Documented by: Ondansetron HCl (Zofran) 4 mg IVPUSH ONETIME ONE Stop: 02/23/20 21:37 Last Admin: 02/23/20 21:55 Dose: 4 mg Documented by: Sodium Chloride (Saline Flush) 10 ml FLUSH ONETIME ONE Stop: 02/23/20 23:42 Last Admin: 02/23/20 23:43 Dose: 10 ml Documented by: Sodium Chloride (Saline Flush) 10 ml FLUSH ONETIME ONE Stop: 02/26/20 12:42 Last Admin: 02/26/20 13:30 Dose: 10 ml Documented by: - Exam Quality Assessment: Denies: Supplemental Oxygen General: Reports: Alert, Oriented HEENT: Reports: Pupils Equal, Mucous Membr. Moist/[place] Neck: Reports: Supple Lungs: Reports: Normal Respiratory Effort, Rales (Minimal bibasilar) Cardiovascular: Reports: Regular Rate, Regular Rhythm GI/Abdominal Exam: Normal Bowel Sounds, Soft, Non-Tender, No Distention Extremities: Normal Inspection, Normal Range of Motion, Non-Tender, No Pedal Edema, Normal Capillary Refill Skin: Reports: Warm, Dry, Intact Psy/Mental Status: Reports: Alert, Normal Affect, Normal Mood
== END 2020-03-01 14:30 | disposition home or self-care (01) | DRG 137 ==
LOC: JD.ED 20:54 → JD.MS 02-24 01:03 → OBSVTOIN 02-24 20:05
PROVIDERS: ADMIT Surgery; ATTEND Family Medicine
PROC: 8E0ZXY6 Isolation (ICD-10-PCS; 2020-02-24)
PROC: XW033E5 Introduction of Remdesivir Anti-infective into Peripheral Vein, Percutaneous Approach, New Technology Group 5 (ICD-10-PCS; principal; 2020-02-27)
DX: U07.1 COVID-19 (principal); K35.80 Unspecified acute appendicitis; J12.89 Other viral pneumonia; I26.99 Other pulmonary embolism without acute cor pulmonale; Z79.82 Long term (current) use of aspirin; Z79.01 Long term (current) use of anticoagulants; Z79.2 Long term (current) use of antibiotics; Z79.899 Other long term (current) drug therapy; Z88.1 Allergy status to other antibiotic agents; H54.7 Unspecified visual loss; M10.9 Gout, unspecified; R73.03 Prediabetes; C80.1 Malignant (primary) neoplasm, unspecified; R59.0 Localized enlarged lymph nodes; R19.7 Diarrhea, unspecified; I12.9 Hypertensive chronic kidney disease with stage 1 through stage 4 chronic kidney disease, or unspecified chronic kidney disease; N18.30 Chronic kidney disease, stage 3 unspecified; R73.9 Hyperglycemia, unspecified; E88.09 Other disorders of plasma-protein metabolism, not elsewhere classified; E66.9 Obesity, unspecified; Z68.33 Body mass index [BMI] 33.0-33.9, adult; Z99.81 Dependence on supplemental oxygen
CPT/HCPCS: 36415; 71045; 71045-26; 71275; 71275-26; 74177; 74177-26; 80048; 80053; 81001; 82728; 82962; 83735; 84100; 84145; 85007; 85025; 85027; 85379; 85610; 85730; 86140; 94667; 94668; 94760; 94761; 94762; 96365; 96366; 96375; 96376; 99285; 99285-25; A9270-GY; J1170; J1644; J1815-GY; J2405; J2543; J3475; J7030; J7050; J7120; J8540; Q9963; Q9967; U0002

== ENCOUNTER 2020-03-13 19:10 | Inpatient (IN) | payer BC, MEDICARE ==
--- NOTE | 2020-03-13 19:43 | PCM.CONS ---
H&P History of Present Illness - General Date of Service: 03/13/20 Source of Information: Patient History Limitations: Reports: No Limitations - History of Present Illness Initial Comments - Free Text/Narative: Patient had a recent covid-19 infection 02/02/2020 but later developed acute appendicitis. He presented to the ED for SOB and RLQ pain 02/24/2020. CT a/p revealed acute appendicitis with appendicolith. Patient was also found to have pulmonary embolism likely as a result of covid-19 infection. Appendicitis was treated with antibiotics and was started on systemic anticoagulation for PEs. He improved and was discharged 03/01. He did well but in the recent days he has developed night fevers to 102 which improve with Tylenol and RLQ pain has returned. He continues to tolerate diet. He presented today in clinic for re-e valuation. CT was done and revealed appendicitis with appendicolith and marked RLQ inflammation. Abscess could not be ruled out due to lack of IV contrast. WBC was 14.7 and Creat was 2.10 which is worse from previous on our record 1.8. I recommended admission for IV antibiotics therapy. Patient still has ground glass opacities in his lungs but O2 sats have ángela >90% at home. Onset of Symptoms: Reports: Today Duration of Symptoms: Reports: Day(s):, Getting Worse Location: Reports: Abdomen (RLQ) Quality: Reports: Dull (RLQ) Severity: Moderate Improves with: Reports: Immobilization Worsens with: Reports: Movement Context: Reports: Other (recent appendicitis) - Related Data Allergies/Adverse Reactions: Allergies Allergy/AdvReac Type Severity Reaction Status Date / Time azithromycin [From Zithromax] Allergy Swelling Verified 02/24/20 02:37 Home Medications: Home Meds Aspirin 81 mg PO DAILY 06/03/19 [History] B2/Vits A,C,E/Lut/Zeaxanth/Min [Icaps] 1 tab PO DAILY 06/03/19 [History] Multivitamin [Multivitamins] 1 tab PO DAILY 06/03/19 [History] Olmesartan Medoxomil [Benicar] 20 mg PO DAILY 06/03/19 [History] Benzonatate [Tessalon Perle] 100 - 200 mg PO Q8H PRN #20 capsule 02/17/20 [Rx] Non-Formulary Medication [NF Drug] 1 tab PO DAILY 02/24/20 [History] amLODIPine [Norvasc] 5 mg PO DAILY 02/27/20 [History] Amoxicillin/Clavulanate K [Augmentin 875-125 MG] 1 tab PO Q12H #6 tablet 03/01/20 [Rx] Apixaban [Eliquis] 10 mg PO BID #74 tablet 03/01/20 [Rx] Saccharomyces Boulardii [Florastor] 250 mg PO BID #60 cap 03/01/20 [Rx] amLODIPine [Norvasc] 5 mg PO DAILY tablet 03/01/20 [Rx] Past Medical History HEENT History: Reports: Impaired Vision, Other (See Below) Other HEENT History: wears glasses, wisdom teeth removed Cardiovascular History: Reports: Hypertension Genitourinary History: Reports: Chronic Renal Insuffiency Musculoskeletal History: Reports: Gout Endocrine/Metabolic History: Reports: Other (See Below) (Prediabetes) Other Endocrine/Metabolic History: prediabetic Oncologic (Cancer) History: Reports: Squamous Cell Carcinoma Dermatologic History: Reports: Eczema - Infectious Disease History Infectious Disease History: Reports: Chicken Pox, Measles, Mumps, Novel Coronavirus - Past Surgical History HEENT Surgical History: Reports: Oral Surgery Cardiovascular Surgical History: Reports: None Male Surgical History: Reports: Circumcision Musculoskeletal Surgical History: Reports: None Oncologic Surgical History: Reports: Other (See Below) Other Oncologic Surgeries/Procedures: skin cancer behind ear and nose Social & Family History - Family History Family Medical History: No Pertinent Family History Cardiac: Reports: Hypertension Musculoskeletal: Reports: Other (See Below) (scoliosis) - Caffeine Use Caffeine Use: Reports: Coffee, Soda Other Caffeine Use: one can pop a day and 1-2 cups of coffee - Living Situation & Occupation Living situation: Reports: , with Spouse, with Family (Son) 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) H&P Review of Systems - Review of Systems: Review Of Systems: See Below General: Reports: Fever (to 102 at night), Malaise HEENT: Reports: No Symptoms Pulmonary: Reports: No Symptoms Cardiovascular: Reports: No Symptoms Gastrointestinal: Reports: No Symptoms Genitourinary: Reports: No Symptoms Musculoskeletal: Reports: No Symptoms Skin: Reports: No Symptoms Psychiatric: Reports: No Symptoms Neurological: Reports: No Symptoms Hematologic/Lymphatic: Reports: No Symptoms Exam - Exam Exam: See Below - Exam General: Alert, Oriented HEENT: Conjunctiva Clear Lungs: Normal Respiratory Effort, Crackles Cardiovascular: Regular Rate, Regular Rhythm, Normal S1, Normal S2 GI/Abdominal Exam: Soft, Tender (RLQ), Hernia (umbilical, reducible), Other (No rebound tenderness) Consult PN Assessment/Plan Procedures: Procedures ASSAY OF FERRITIN (02/17/20) ASSAY OF NATRIURETIC PEPTIDE (02/17/20) ASSAY OF TROPONIN QUANT (02/17/20) C-REACTIVE PROTEIN (02/17/20) COMPLETE CBC W/AUTO DIFF WBC (02/17/20) COMPREHEN METABOLIC PANEL (02/17/20) ELECTROCARDIOGRAM TRACING (02/17/20) EMERGENCY DEPT VISIT (02/17/20) EMERGENCY DEPT VISIT (06/03/19) FIBRIN DEGRADATION QUANT (02/17/20) GLYCOSYLATED HEMOGLOBIN TEST (04/03/17) LACTATE (LD) (LDH) ENZYME (02/17/20) LIPID PANEL (09/30/16) MRI BRAIN STEM W/O DYE (05/30/19) ROUTINE VENIPUNCTURE (02/17/20) UR ALBUMIN QUANTITATIVE (04/03/17) URINALYSIS AUTO W/O SCOPE (09/30/16) X-RAY EXAM CHEST 1 VIEW (02/17/20) X-RAY EXAM UNILAT RIBS/CHEST (06/03/19) Problem List Initiated/Reviewed/Updated: No Plan: Recurrent appendicitis with appendicolith with extensive RLQ inflammation, possible small abscess - Admit for IV antibiotics - Recommend holding Eliquis and starting hep infusion in case patient will need surgical intervention - OK to have clears - IV resuscitation due to apparent developing NOAH - Daily CBC/ Chem
[2020-03-13] MEDS ORDERED: Ondansetron 4 MG/2 ML SDV IV PRN (20:47)
[2020-03-13] MEDS ORDERED: Acetaminophen 325 MG Tab PO PRN (20:47)
[2020-03-13] MEDS ORDERED: Piperacillin/Tazobactam 4.5 GM in Sodium Chloride 0.9% 100 ML IV ONE (20:50)
[2020-03-13] MEDS ORDERED: Heparin Sodium 5,000 Units/ML Vial IVPUSH ONE (21:15)
[2020-03-13] MEDS ORDERED: Heparin Sodium/D5W 500 ML IV SCH (21:15)
[2020-03-13] MEDS: Saccharomyces Boulardii (Probiotic) 250 MG Cap PO SCH (21:57)
--- NOTE | 2020-03-13 22:12 | PCM.HP.2 ---
H&P History of Present Illness - General Date of Service: 03/13/20 Admit Problem/Dx: Admission Diagnosis/Problem Admission Diagnosis/Problem Appendicitis - History of Present Illness Initial Comments - Free Text/Narative: Chinedu is being readmitted secondary to worsening appendicitis with appendicolith and unable to rule out abscess done on CT today. Patient was initially admitted on 02/24/2020 with appendicitis, but was initially diagnosed with COVID-19 on 02/07/2020. At that time it was felt to best treat him with antibiotics, Zosyn initially, and plan outpatient surgery. Unfortunately, during hospitalization patient did develop a PE likely secondary to COVID-19 and immobility. Patient was then treated with heparin and switched to Eliquis, completed treatment with dexamethasone, and remdesivir. At time of discharge patient was switched to Augmentin, follow-up with his primary care provider, and today followed up with surgery. Patient states that over the last couple of days his right lower quadrant pain has returned and he has developed fevers of up to 100 and 2 at night. He has a very little appetite and has lost weight. His WBC in the clinic was 14.7 and his creatinine was up to 2.1 which is higher than his baseline renal insufficiency with creatinine of 1.8. Chest x-ray of the lungs show continued groundglass opacities but his oxygen saturations have been greater than 90%. - Related Data Allergies/Adverse Reactions: Allergies Allergy/AdvReac Type Severity Reaction Status Date / Time azithromycin [From Zithromax] Allergy Swelling Verified 02/24/20 02:37 Home Medications: Home Meds Aspirin 81 mg PO DAILY 06/03/19 [History] B2/Vits A,C,E/Lut/Zeaxanth/Min [Icaps] 1 tab PO DAILY 06/03/19 [History] Multivitamin [Multivitamins] 1 tab PO DAILY 06/03/19 [History] Olmesartan Medoxomil [Benicar] 20 mg PO DAILY 06/03/19 [History] Benzonatate [Tessalon Perle] 100 - 200 mg PO Q8H PRN #20 capsule 02/17/20 [Rx] Non-Formulary Medication [NF Drug] 1 tab PO DAILY 02/24/20 [History] amLODIPine [Norvasc] 5 mg PO DAILY 02/27/20 [History] Amoxicillin/Clavulanate K [Augmentin 875-125 MG] 1 tab PO Q12H #6 tablet 03/01/20 [Rx] Apixaban [Eliquis] 10 mg PO BID #74 tablet 03/01/20 [Rx] Saccharomyces Boulardii [Florastor] 250 mg PO BID #60 cap 03/01/20 [Rx] amLODIPine [Norvasc] 5 mg PO DAILY tablet 03/01/20 [Rx] Past Medical History HEENT History: Reports: Impaired Vision, Other (See Below) Other HEENT History: wears glasses, wisdom teeth removed Cardiovascular History: Reports: Hypertension Genitourinary History: Reports: Chronic Renal Insuffiency Musculoskeletal History: Reports: Gout Endocrine/Metabolic History: Reports: Other (See Below) (Prediabetes) Other Endocrine/Metabolic History: prediabetic Oncologic (Cancer) History: Reports: Squamous Cell Carcinoma Dermatologic History: Reports: Eczema Other Dermatologic History: skin cancer- melanoma/basal cell - Infectious Disease History Infectious Disease History: Reports: Chicken Pox, Measles, Mumps, Novel Coronavirus - Past Surgical History HEENT Surgical History: Reports: Oral Surgery Cardiovascular Surgical History: Reports: None Male Surgical History: Reports: Circumcision Musculoskeletal Surgical History: Reports: None Oncologic Surgical History: Reports: Other (See Below) Other Oncologic Surgeries/Procedures: skin cancer behind ear and nose Social & Family History - Family History Family Medical History: No Pertinent Family History Cardiac: Reports: Hypertension Musculoskeletal: Reports: Other (See Below) (scoliosis) - Tobacco Use Tobacco Use Status *Q: Never Tobacco User Second Hand Smoke Exposure: No - Caffeine Use Caffeine Use: Reports: Coffee, Soda Other Caffeine Use: one can pop a day and 1-2 cups of coffee - Recreational Drug Use Recreational Drug Use: No - Living Situation & Occupation Living situation: Reports: , with Spouse, with Family (Son) 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 Exam - Exam Exam: See Below - Vital Signs Vital Signs: Last Vital Signs Temp 98.6 F 03/13/20 20:11 Pulse 104 H 03/13/20 20:11 Resp 18 03/13/20 20:11 BP 131/69 03/13/20 20:11 Pulse Ox 93 L 03/13/20 20:47 Weight: 239 lb 4.8 oz - Exam Quality Assessment: No: Supplemental Oxygen General: Alert, Oriented, 4 HEENT: Conjunctiva Clear, EACs Clear, Hearing Intact, Mucosa Moist & [place] Neck: Supple, Trachea Midline, 2 Lungs: Clear to Auscultation, Normal Respiratory Effort, Crackles (Some fine crackles) Cardiovascular: Regular Rate, Regular Rhythm GI/Abdominal Exam: Normal Bowel Sounds, Soft, No Distention, Tender (Right lower quadrant tenderness without guarding or rebound) Back Exam: Normal Inspection Extremities: Normal Inspection, Normal Range of Motion, Non-Tender, No Pedal Edema, Normal Capillary Refill Peripheral Pulses: 2+: Posterior Tibial (L), Posterior Tibial (R), Dorsalis Pedis (L), Dorsalis Pedis (R) Skin: Warm, Dry, Intact Neuro Extensive - Mental Status: Alert, Oriented x3, Normal Mood/Affect, Normal Cognition, Memory Intact Psychiatric: Alert, Normal Affect, Normal Mood - Patient Data Lab Results Last 24 hrs: Laboratory Results - last 24 hr 03/13/20 03/13/20 03/13/20 Range/Units 21:10 21:10 21:10 WBC 15.10 H (4.23-9.07) K/mm3 RBC 3.95 L (4.63-6.08) M/mm3 Hgb 11.1 L (13.7-17.5) gm/dl Hct 34.9 L (40.1-51.0) % MCV 88.4 (79.0-92.2) fl MCH 28.1 (25.7-32.2) pg MCHC 31.8 L (32.2-35.5) g/dl RDW Std Deviation 43.8 (35.1-43.9) fL Plt Count 315 (163-337) K/mm3 MPV 8.5 L (9.4-12.3) fl Neut % (Auto) 80.3 H (34.0-67.9) % Lymph % (Auto) 10.7 L (21.8-53.1) % [place] % (Auto) 8.2 (5.3-12.2) % Eos % (Auto) 0.2 L (0.8-7.0) Baso % (Auto) 0.1 (0.1-1.2) % Neut # (Auto) 12.13 H (1.78-5.38) K/mm3 Lymph # (Auto) 1.61 (1.32-3.57) K/mm3 [place] # (Auto) 1.24 H (0.30-0.82) K/mm3 Eos # (Auto) 0.03 L (0.04-0.54) K/mm3 Baso # (Auto) 0.01 (0.01-0.08) K/mm3 Manual Slide Review Abnormal smear APTT 33.7 H (21.7-31.4) SECONDS Sodium 139 (136-145) mEq/L Potassium 3.5 (3.5-5.1) mEq/L Chloride 105 (98-107) mEq/L Carbon Dioxide 25 (21-32) mEq/L Anion Gap 12.5 (5-15) BUN 21 H (7-18) mg/dL Creatinine 2.2 H (0.7-1.3) mg/dL Est Cr Clr Drug Dosing 38.40 mL/min Estimated GFR (MDRD) 30 (>60) mL/min BUN/Creatinine Ratio 9.5 L (14-18) Glucose 129 H (80-115) mg/dL Calcium 8.8 (8.5-10.1) mg/dL Total Bilirubin 0.8 (0.2-1.0) mg/dL AST 25 (15-37) U/L ALT 39 (16-63) U/L Alkaline Phosphatase 120 H (46-116) U/L C-Reactive Protein 18.7 H* (<1.0) mg/dL Total Protein 5.8 L (6.4-8.2) g/dl Albumin 1.9 L (3.4-5.0) g/dl Globulin 3.9 gm/dL Albumin/Globulin Ratio 0.5 L (1-2) Result Diagrams: 03/13/20 21:10 03/13/20 21:10 Sepsis Event Note - Focused Exam Vital Signs: Vital Signs Temp Pulse Resp BP Pulse Ox Pulse Ox 03/13/20 20:47 93 L 03/13/20 20:11 98.6 F 104 H 18 131/69 93 L - Problem List (1) Acute appendicitis SNOMED Code(s): 88771453 ICD Code: K35.80 - UNSPECIFIED ACUTE APPENDICITIS Status: Acute Current Visit: No (2) Chronic renal insufficiency SNOMED Code(s): 594634935 ICD Code: N18.9 - CHRONIC KIDNEY DISEASE, UNSPECIFIED Status: Acute Current Visit: No (3) Pneumonia due to COVID-19 virus SNOMED Code(s): 828419253673660428 ICD Code: U07.1 - COVID-19; J12.89 - OTHER VIRAL PNEUMONIA Status: Acute Current Visit: No (4) Pulmonary embolism associated with COVID-19 SNOMED Code(s): 918842198 ICD Code: U07.1 - COVID-19; I26.99 - OTHER PULMONARY EMBOLISM WITHOUT ACUTE COR PULMONALE Status: Acute Current Visit: No (5) HTN (hypertension) SNOMED Code(s): 40277468 ICD Code: I10 - ESSENTIAL (PRIMARY) HYPERTENSION Status: Acute Current Visit: Yes (6) Prediabetes SNOMED Code(s): 760603147 ICD Code: R73.03 - PREDIABETES Status: Acute Current Visit: Yes Problem List Initiated/Reviewed/Updated: Yes Orders Last 24hrs: Active Orders 24 hr Category Date Time Status Patient Status [ADT] Routine ADT 03/13/20 21:02 Active Oxygen Therapy [RC] PRN Care 03/13/20 20:47 Active Up ad [place] [RC] ASDIRECTED Care 03/13/20 20:47 Active VTE/DVT Education [RC] PER UNIT ROUTINE Care 03/13/20 20:47 Active Vital Signs [RC] Q4H Care 03/13/20 20:47 Active Clear Liquid Diet [DIET] Diet 03/14/20 Breakfast Active C-REACTIVE PROTEIN [CHEM] AM Lab 03/14/20 05:11 Ordered CBC WITH AUTO DIFF [HEME] AM Lab 03/14/20 05:11 Ordered COMPREHENSIVE METABOLIC PN,CMP [CHEM] AM Lab 03/14/20 05:11 Ordered MAGNESIUM [CHEM] AM Lab 03/14/20 05:11 Ordered PHOSPHORUS [CHEM] AM Lab 03/14/20 05:11 Ordered PROCALCITONIN [REF] Routine Lab 03/13/20 21:10 Received Acetaminophen [TylenoL] Med 03/13/20 20:47 Active 650 mg PO Q4H PRN Acetaminophen/HYDROcodone [[place] 325-5 MG] Med 03/13/20 20:47 Active 1 tab PO Q4H PRN Heparin Sodium/D5W [Heparin 25,000 Units in D5W 500 ML] Med 03/13/20 21:15 Active 500 ml IV TITRATE Ondansetron [Zofran] Med 03/13/20 20:47 Active 4 mg IV Q4H PRN Piperacillin/Tazobactam [Piperacil-Tazobact] 4.5 gm Med 03/13/20 21:00 Pending Sodium Chloride 0.9% [Normal Saline] 100 ml IV Q8H Piperacillin/Tazobactam [Piperacil-Tazobact] 4.5 gm Med 03/14/20 05:00 Active Sodium Chloride 0.9% [Normal Saline] 100 ml IV Q8H Saccharomyces Boulardii [Florastor] Med 03/13/20 21:00 Active 250 mg PO BID Resuscitation Status Routine Resus Stat 03/13/20 20:47 Ordered Medication Orders Acetaminophen (Tylenol) 650 mg PO Q4H PRN PRN Reason: Pain (Mild 1-3)/fever Hydrocodone Bitart/Acetaminophen ([place] 325-5 Mg) 1 tab PO Q4H PRN PRN Reason: Pain (moderate 4-6) Piperacillin Sod/Tazobactam (Sod 4.5 gm/ Sodium Chloride) 100 mls @ 25 mls/hr IV Q8H NICK Piperacillin Sod/Tazobactam (Sod 4.5 gm/ Sodium Chloride) 100 mls @ 25 mls/hr IV Q8H NICK Stop: 03/14/20 08:59 Heparin Sodium/Dextrose (Heparin 25,000 Units In D5w 500 Ml) 500 mls @ 26 mls/hr IV TITRATE NICK; Protocol Ondansetron HCl (Zofran) 4 mg IV Q4H PRN PRN Reason: Nausea/Vomiting Saccharomyces Boulardii (Florastor) 250 mg PO BID [facility] Last Admin: 03/13/20 21:57 Dose: 250 mg Documented by: CORNELIA Assessment/Plan Comment:: Assessment Recurrence of appendicitis * Patient developed abdominal pain over the last couple of days. He had finished 11 days of antibiotics as an outpatient and was doing well until 2 days ago. Yesterday he had a fever of 102 and was seen by surgery today. * Dr. Ferreira recommended admission for IV antibiotics and fluids. * Labs at the clinic showed a white count of 14.7 and a creatinine up to 2.1. * CT done at clinic showed appendicitis with appendicolith and marked right lowe r quadrant inflammation. Abscess cannot be ruled out due to lack of IV contrast. Pulmonary embolus secondary to COVID-19 * Chest x-ray shows groundglass opacity. * Oxygen saturations greater than 90% on room air. * Minimal respiratory symptoms. * Currently on Eliquis Acute kidney injury on chronic renal insufficiency * Clinic creatinine increased to 2.1 and repeat done now was 2.2 with estimated GFR of 30 * Patient endorses poor oral intake and weight loss Chronic medical: Hypertension, prediabetes, gout, chronic renal insufficiency Plan * Admit to medical/surgical floor * Stop Eliquis and start heparin * Repeat CBC, CMP and get procalcitonin, mag, Phos, C-reactive protein, hemoglobin A1c * Zosyn * Surgical consult * LR at 100 mL an hour * Clear liquids * VTE prophylaxis with therapeutic heparin * CODE STATUS: Full code * Length of stay will depend on surgical opinion - Mortality Measure Prognosis:: Good
[2020-03-13] MEDS: Lactated Ringers 1,000 ML IV SCH (23:18)
[2020-03-14] MEDS ORDERED: Piperacillin/Tazobactam 4.5 GM in Sodium Chloride 0.9% 100 ML IV SCH (05:00)
[2020-03-14] MEDS: Piperacillin/Tazobactam 4.5 GM in Sodium Chloride 0.9% 100 ML IV SCH ×3 (05:31→22:18)
[2020-03-14 07:26] LABS: HEMOGLOBIN A1C 7.4 % (4.50-6.20)
[2020-03-14] MEDS ORDERED: Heparin Sodium 5,000 Units/ML Vial IVPUSH ONE (08:50)
[2020-03-14] MEDS: Saccharomyces Boulardii (Probiotic) 250 MG Cap PO SCH ×2 (09:14→19:59)
[2020-03-14] MEDS ORDERED: Lactated Ringers 1,000 ML IV ONE (09:43)
[2020-03-14] MEDS ORDERED: 50% Dextrose in Water 50 ML Syringe IV PRN (11:45)
[2020-03-14] MEDS: Lactated Ringers 1,000 ML IV SCH (12:05)
--- NOTE | 2020-03-14 13:04 | PCM.PREANE ---
Preanesthetic Assessment - Procedure Proposed Procedure: Laparoscopic Appendectomy - Anesthesia/Transfusion/Family Hx Anesthesia History: Prior Anesthesia Without Reaction Family History of Anesthesia Reaction: No Transfusion History: No Prior Transfusion(s) Intubation History: Unknown - Review of Systems General: No Symptoms (Diagnosed with appendicitis in January and COVID + 02/07/2020), Fever, Weakness, Fatigue, Chills, Night Sweats Pulmonary: No Symptoms (Prior bilateral infiltrates both lung with pneumonia due to COVID + ./ETOH: rarely/Snores.) Cardiovascular: No Symptoms (HTN), Palpitations, Dyspnea on Exertion, Lightheadedness Gastrointestinal: No Symptoms (GERD), Abdominal Pain (2-3/10 with ambulation), Decreased Appetite (weight loss), Diarrhea Neurological: No Symptoms (History of gout/vertigo) Other: Reports: None (Chronic renal insufficiency with elevated CR=2.4), Easy Bleeding (Pulmonary Emboli with prior hospitalization due to COVID symptoms), Easy Bruising, Diabetes (Pre-diabetic) - Physical Assessment NPO Status Date: 03/14/20 NPO Status Time: 09:00 Vital Signs: Last Vital Signs Temp 36.7 C 03/14/20 08:13 Pulse 89 03/14/20 08:13 Resp 18 03/14/20 08:13 BP 106/64 03/14/20 08:13 Pulse Ox 91 L 03/14/20 08:13 Height: 1.88 m Weight: 108.499 kg ASA Class: 3E Mental Status: Alert & Oriented x3 Airway Class: Mallampati = 2 Dentition: Reports: Normal Dentition, Caries Thyro-Mental Finger Breadths: 3 Mouth Opening Finger Breadths: 3 ROM/Head Extension: Full Lungs: Clear to Auscultation, Normal Respiratory Effort Cardiovascular: Regular Rate, Regular Rhythm, No Murmurs - Lab Values: Laboratory Last Values WBC 18.29 K/mm3 (4.23-9.07) H 03/14/20 04:50 RBC 3.97 M/mm3 (4.63-6.08) L 03/14/20 04:50 Hgb 11.1 gm/dl (13.7-17.5) L 03/14/20 04:50 Hct 35.1 % (40.1-51.0) L 03/14/20 04:50 MCV 88.4 fl (79.0-92.2) 03/14/20 04:50 MCH 28.0 pg (25.7-32.2) 03/14/20 04:50 MCHC 31.6 g/dl (32.2-35.5) L 03/14/20 04:50 RDW Std Deviation 44.2 fL (35.1-43.9) H 03/14/20 04:50 Plt Count 333 K/mm3 (163-337) 03/14/20 04:50 MPV 8.9 fl (9.4-12.3) L 03/14/20 04:50 Neut % (Auto) 85.0 % (34.0-67.9) H 03/14/20 04:50 Lymph % (Auto) 8.2 % (21.8-53.1) L 03/14/20 04:50 [place] % (Auto) 6.2 % (5.3-12.2) 03/14/20 04:50 Eos % (Auto) 0.1 (0.8-7.0) L 03/14/20 04:50 Baso % (Auto) 0.1 % (0.1-1.2) 03/14/20 04:50 Neut # (Auto) 15.55 K/mm3 (1.78-5.38) H 03/14/20 04:50 Lymph # (Auto) 1.50 K/mm3 (1.32-3.57) 03/14/20 04:50 [place] # (Auto) 1.14 K/mm3 (0.30-0.82) H 03/14/20 04:50 Eos # (Auto) 0.01 K/mm3 (0.04-0.54) L 03/14/20 04:50 Baso # (Auto) 0.02 K/mm3 (0.01-0.08) 03/14/20 04:50 Manual Slide Review Abnormal smear 03/14/20 04:50 APTT 43.5 SECONDS (21.7-31.4) H 03/14/20 08:01 Sodium 140 mEq/L (136-145) 03/14/20 04:50 Potassium 3.6 mEq/L (3.5-5.1) 03/14/20 04:50 Chloride 104 mEq/L (98-107) 03/14/20 04:50 Carbon Dioxide 28 mEq/L (21-32) 03/14/20 04:50 Anion Gap 11.6 (5-15) 03/14/20 04:50 BUN 21 mg/dL (7-18) H 03/14/20 04:50 Creatinine 2.4 mg/dL (0.7-1.3) H 03/14/20 04:50 Est Cr Clr Drug Dosing 35.20 mL/min 03/14/20 04:50 Estimated GFR (MDRD) 27 mL/min (>60) 03/14/20 04:50 BUN/Creatinine Ratio 8.8 (14-18) L 03/14/20 04:50 Glucose 144 mg/dL (80-115) H 03/14/20 04:50 POC Glucose 125 mg/dL (80-115) H 03/14/20 12:11 Hemoglobin A1c 7.40 % (4.50-6.20) H 03/14/20 04:50 Lactic Acid 1.1 mmol/L (0.4-2.0) 03/14/20 01:05 Calcium 8.4 mg/dL (8.5-10.1) L 03/14/20 04:50 Phosphorus 3.7 mg/dL (2.6-4.7) 03/14/20 04:50 Magnesium 1.7 mg/dl (1.8-2.4) L 03/14/20 04:50 Total Bilirubin 0.9 mg/dL (0.2-1.0) 03/14/20 04:50 AST 25 U/L (15-37) 03/14/20 04:50 ALT 37 U/L (16-63) 03/14/20 04:50 Alkaline Phosphatase 115 U/L (46-116) 03/14/20 04:50 C-Reactive Protein 18.9 mg/dL (<1.0) H* 03/14/20 04:50 Total Protein 5.7 g/dl (6.4-8.2) L 03/14/20 04:50 Albumin 1.8 g/dl (3.4-5.0) L 03/14/20 04:50 Globulin 3.9 gm/dL 03/14/20 04:50 Albumin/Globulin Ratio 0.5 (1-2) L 03/14/20 04:50 Procalcitonin 0.77 ng/mL (<0.10) H 03/13/20 21:10 Above labs reviewed and noted and within acceptable ranges to proceed with procedure. - Imaging/EKG Impressions: CXR: bilateral perihilar infiltrates 02/26/2020, COVID + 02/07/2020 EKG: SR rate 82, no ST, T changes. - Allergies Allergies/Adverse Reactions: Allergies Allergy/AdvReac Type Severity Reaction Status Date / Time azithromycin [From Zithromax] Allergy Swelling Verified 03/14/20 09:02 - Anesthesia Plan Pre-Op Medication Ordered: None - Acknowledgements Anesthesia Type Planned: General Anesthesia Pt an Appropriate Candidate for the Planned Anesthesia: Yes Alternatives and Risks of Anesthesia Discussed w Pt/Guardian: Yes Pt/Guardian Understands and Agrees with Anesthesia Plan: Yes PreAnesthesia Questionnaire HEENT History: Reports: Impaired Vision, Other (See Below) Other HEENT History: wears glasses, wisdom teeth removed Cardiovascular History: Reports: Hypertension Genitourinary History: Reports: Chronic Renal Insuffiency Musculoskeletal History: Reports: Gout Endocrine/Metabolic History: Reports: Other (See Below) (Prediabetes) Other Endocrine/Metabolic History: prediabetic Oncologic (Cancer) History: Reports: Squamous Cell Carcinoma Dermatologic History: Reports: Eczema Other Dermatologic History: skin cancer- melanoma/basal cell - Infectious Disease History Infectious Disease History: Reports: Chicken Pox, Measles, Mumps, Novel Coronavirus - Past Surgical History HEENT Surgical History: Reports: Oral Surgery Cardiovascular Surgical History: Reports: None Male Surgical History: Reports: Circumcision Musculoskeletal Surgical History: Reports: None Oncologic Surgical History: Reports: Other (See Below) Other Oncologic Surgeries/Procedures: skin cancer behind ear and nose - SUBSTANCE USE Tobacco Use Status *Q: Never Tobacco User Second Hand Smoke Exposure: No Recreational Drug Use History: No - HOME MEDS Home Medications: Home Meds Aspirin 81 mg PO DAILY 06/03/19 [History] B2/Vits A,C,E/Lut/Zeaxanth/Min [Icaps] 1 tab PO DAILY 06/03/19 [History] Multivitamin [Multivitamins] 1 tab PO DAILY 06/03/19 [History] Olmesartan Medoxomil [Benicar] 20 mg PO DAILY 06/03/19 [History] Amoxicillin/Clavulanate K [Augmentin 875-125 MG] 1 tab PO Q12H #6 tablet 03/01/20 [Rx] Apixaban [Eliquis] 10 mg PO BID #74 tablet 03/01/20 [Rx] Saccharomyces Boulardii [Florastor] 250 mg PO BID #60 cap 03/01/20 [Rx] amLODIPine [Norvasc] 5 mg PO DAILY tablet 03/01/20 [Rx] - CURRENT (IN HOUSE) MEDS Current Meds: Current Medications Acetaminophen (Tylenol) 650 mg PO Q4H PRN PRN Reason: Pain (Mild 1-3)/fever Hydrocodone Bitart/Acetaminophen ([place] 325-5 Mg) 1 tab PO Q4H PRN PRN Reason: Pain (moderate 4-6) Amlodipine Besylate (Norvasc) 5 mg PO DAILY [facility] Dextrose/Water (Dextrose 50% In Water) 50 ml IV ASDIRECTED PRN PRN Reason: Hypoglycemia Piperacillin Sod/Tazobactam (Sod 4.5 gm/ Sodium Chloride) 100 mls @ 25 mls/hr IV Q8H [facility] Last Admin: 03/14/20 05:31 Dose: 25 mls/hr Documented by: Heparin Sodium/Dextrose (Heparin 25,000 Units In D5w 500 Ml) 500 mls @ 26 mls/hr IV TITRATE [facility]; Protocol Last Titration: 03/14/20 09:06 Dose: 1,515 units/hr, 30.3 mls/hr Documented by: Lactated Ringer's (Ringers, Lactated) 1,000 mls @ 100 mls/hr IV ASDIRECTED [facility] Last Admin: 03/14/20 12:05 Dose: 100 mls/hr Documented by: Insulin Human Lispro (Humalog) 0 unit SUBCUT QIDACANDBED [facility]; Protocol Ondansetron HCl (Zofran) 4 mg IV Q4H PRN PRN Reason: Nausea/Vomiting Saccharomyces Boulardii (Florastor) 250 mg PO BID [facility] Last Admin: 03/14/20 09:14 Dose: 250 mg Documented by: Discontinued Medications Heparin Sodium (Porcine) (Heparin Sodium) 5,000 units IVPUSH BOLUS ONE; Protocol Stop: 03/13/20 21:16 Last Admin: 03/13/20 22:39 Dose: 5,000 units Documented by: Heparin Sodium (Porcine) (Heparin Sodium) 1,500 units IVPUSH ONETIME ONE Stop: 03/14/20 08:51 Last Admin: 03/14/20 09:13 Dose: 1,500 units Documented by: Piperacillin Sod/Tazobactam (Sod 4.5 gm/ Sodium Chloride) 100 mls @ 200 mls/hr IV ONETIME ONE Stop: 03/13/20 21:19 Last Admin: 03/13/20 22:38 Dose: 200 mls/hr Documented by: Lactated Ringer's (Ringers, Lactated) 1,000 mls @ 1,000 mls/hr IV .BOLUS ONE Stop: 03/14/20 10:42 Last Admin: 03/14/20 10:59 Dose: 1,000 mls/hr Documented by:
[2020-03-14] MEDS ORDERED: Scopolamine 1.5 MG Transdermal Patch TRDERM ONE (13:32)
[2020-03-14] MEDS ORDERED: Lidocaine 1% 4 ML ONE (13:59)
[2020-03-14] MEDS ORDERED: Lactated Ringers 2,000 ML ONE (13:59)
[2020-03-14] MEDS ORDERED: Dexamethasone 4 MG/ML 5 ML MDV ONE (13:59)
[2020-03-14] MEDS ORDERED: Ondansetron 4 MG/2 ML SDV ONE (13:59)
[2020-03-14] MEDS ORDERED: Rocuronium 50 MG/5 ML Vial ONE (13:59)
[2020-03-14] MEDS ORDERED: HYDROmorphone 0.5 MG/0.5 ML Syringe ONE ×4 (13:59→17:33)
[2020-03-14] MEDS ORDERED: Succinylcholine/Sod PF 100 MG/5 ML SYRINGE IV ONE ×2 (13:59→15:21)
[2020-03-14] MEDS ORDERED: Propofol 200 MG/20 ML SDV ONE (13:59)
[2020-03-14] MEDS ORDERED: Midazolam 1 MG/ML 2 ML SDV ONE (14:00)
[2020-03-14] MEDS ORDERED: fentaNYL 250 MCG/5 ML SDV ONE (14:00)
[2020-03-14] MEDS ORDERED: Albuterol 0.083% 2.5 MG/3 ML Neb Soln NEB ONE (15:00)
[2020-03-14] MEDS: Bupivacaine 0.5%/EPINEPHrine 1:200,000 50 ML MDV ONE ×2 (16:17→16:23)
[2020-03-14] MEDS ORDERED: ePHEDrine 50 MG/ML SDV ONE (16:18)
[2020-03-14] MEDS ORDERED: fentaNYL 100 MCG/2 ML SDV IVPUSH PRN (16:21)
[2020-03-14] MEDS ORDERED: diphenhydrAMINE 50 MG/ML SDV IVPUSH PRN (16:21)
[2020-03-14] MEDS ORDERED: Ondansetron 4 MG/2 ML SDV IVPUSH PRN (16:21)
[2020-03-14] MEDS ORDERED: ePHEDrine 50 MG/ML SDV IVPUSH PRN (16:21)
[2020-03-14] MEDS ORDERED: Albuterol 0.083% 2.5 MG/3 ML Neb Soln NEB PRN (16:22)
[2020-03-14] MEDS ORDERED: HYDROmorphone 0.5 MG/0.5 ML Syringe IVPUSH PRN (16:22)
[2020-03-14] MEDS ORDERED: Labetalol 100 MG/20 ML MDV ONE (16:30)
[2020-03-14] MEDS ORDERED: Morphine 2 MG/ML SYRINGE IVPUSH PRN (18:18)
[2020-03-14] MEDS: Insulin Lispro 100 Units/ML 3 ML Vial SUBCUT SCH ×2 (18:18→22:21)
--- NOTE | 2020-03-14 18:18 | PCM.PN ---
- General Info Date of Service: 03/14/20 Admission Dx/Problem (Free Text): Admission Diagnosis/Problem Admission Diagnosis/Problem Appendicitis Subjective Update: Patient feeling better today. He does not have severe pain, but does have some pain when moving. Decreased appetite. No fevers overnight. Functional Status: Reports: Pain Controlled - Review of Systems General: Reports: No Symptoms HEENT: Reports: No Symptoms Pulmonary: Reports: No Symptoms Cardiovascular: Reports: No Symptoms Gastrointestinal: Reports: Abdominal Pain (Minimal abdominal pain with movement) Musculoskeletal: Reports: No Symptoms Skin: Reports: No Symptoms Psychiatric: Reports: No Symptoms - Patient Data Vitals - Most Recent: Last Vital Signs Temp 98.4 F 03/14/20 12:30 Pulse 95 03/14/20 12:30 Resp 18 03/14/20 12:30 BP 123/70 03/14/20 12:30 Pulse Ox 92 L 03/14/20 15:04 Weight - Most Recent: 239 lb 3.2 oz I&O - Last 24 Hours: Intake & Output 03/14/20 03/14/20 03/14/20 06:59 14:59 22:59 Intake Total 7913 170 2811 Output Total 450 1350 Balance 895 620 430 Lab Results Last 24 Hours: Laboratory Results - last 24 hr 03/13/20 03/13/20 03/13/20 Range/Units 21:10 21:10 21:10 WBC 15.10 H (4.23-9.07) K/mm3 RBC 3.95 L (4.63-6.08) M/mm3 Hgb 11.1 L (13.7-17.5) gm/dl Hct 34.9 L (40.1-51.0) % MCV 88.4 (79.0-92.2) fl MCH 28.1 (25.7-32.2) pg MCHC 31.8 L (32.2-35.5) g/dl RDW Std Deviation 43.8 (35.1-43.9) fL Plt Count 315 (163-337) K/mm3 MPV 8.5 L (9.4-12.3) fl Neut % (Auto) 80.3 H (34.0-67.9) % Lymph % (Auto) 10.7 L (21.8-53.1) % Barbour % (Auto) 8.2 (5.3-12.2) % Eos % (Auto) 0.2 L (0.8-7.0) Baso % (Auto) 0.1 (0.1-1.2) % Neut # (Auto) 12.13 H (1.78-5.38) K/mm3 Lymph # (Auto) 1.61 (1.32-3.57) K/mm3 Barbour # (Auto) 1.24 H (0.30-0.82) K/mm3 Eos # (Auto) 0.03 L (0.04-0.54) K/mm3 Baso # (Auto) 0.01 (0.01-0.08) K/mm3 Manual Slide Review Abnormal smear APTT 33.7 H (21.7-31.4) SECONDS Sodium 139 (136-145) mEq/L Potassium 3.5 (3.5-5.1) mEq/L Chloride 105 (98-107) mEq/L Carbon Dioxide 25 (21-32) mEq/L Anion Gap 12.5 (5-15) BUN 21 H (7-18) mg/dL Creatinine 2.2 H (0.7-1.3) mg/dL Est Cr Clr Drug Dosing 38.40 mL/min Estimated GFR (MDRD) 30 (>60) mL/min BUN/Creatinine Ratio 9.5 L (14-18) Glucose 129 H (80-115) mg/dL POC Glucose (80-115) mg/dL Hemoglobin A1c (4.50-6.20) % Lactic Acid (0.4-2.0) mmol/L Calcium 8.8 (8.5-10.1) mg/dL Phosphorus (2.6-4.7) mg/dL Magnesium (1.8-2.4) mg/dl Total Bilirubin 0.8 (0.2-1.0) mg/dL AST 25 (15-37) U/L ALT 39 (16-63) U/L Alkaline Phosphatase 120 H (46-116) U/L C-Reactive Protein 18.7 H* (<1.0) mg/dL Total Protein 5.8 L (6.4-8.2) g/dl Albumin 1.9 L (3.4-5.0) g/dl Globulin 3.9 gm/dL Albumin/Globulin Ratio 0.5 L (1-2) Procalcitonin (<0.10) ng/mL 03/13/20 03/14/20 03/14/20 Range/Units 21:10 01:05 04:50 WBC 18.29 H (4.23-9.07) K/mm3 RBC 3.97 L (4.63-6.08) M/mm3 Hgb 11.1 L (13.7-17.5) gm/dl Hct 35.1 L (40.1-51.0) % MCV 88.4 (79.0-92.2) fl MCH 28.0 (25.7-32.2) pg MCHC 31.6 L (32.2-35.5) g/dl RDW Std Deviation 44.2 H (35.1-43.9) fL Plt Count 333 (163-337) K/mm3 MPV 8.9 L (9.4-12.3) fl Neut % (Auto) 85.0 H (34.0-67.9) % Lymph % (Auto) 8.2 L (21.8-53.1) % Barbour % (Auto) 6.2 (5.3-12.2) % Eos % (Auto) 0.1 L (0.8-7.0) Baso % (Auto) 0.1 (0.1-1.2) % Neut # (Auto) 15.55 H (1.78-5.38) K/mm3 Lymph # (Auto) 1.50 (1.32-3.57) K/mm3 Barbour # (Auto) 1.14 H (0.30-0.82) K/mm3 Eos # (Auto) 0.01 L (0.04-0.54) K/mm3 Baso # (Auto) 0.02 (0.01-0.08) K/mm3 Manual Slide Review Abnormal smear APTT (21.7-31.4) SECONDS Sodium (136-145) mEq/L Potassium (3.5-5.1) mEq/L Chloride (98-107) mEq/L Carbon Dioxide (21-32) mEq/L Anion Gap (5-15) BUN (7-18) mg/dL Creatinine (0.7-1.3) mg/dL Est Cr Clr Drug Dosing mL/min Estimated GFR (MDRD) (>60) mL/min BUN/Creatinine Ratio (14-18) Glucose (80-115) mg/dL POC Glucose (80-115) mg/dL Hemoglobin A1c (4.50-6.20) % Lactic Acid 1.1 (0.4-2.0) mmol/L Calcium (8.5-10.1) mg/dL Phosphorus (2.6-4.7) mg/dL Magnesium (1.8-2.4) mg/dl Total Bilirubin (0.2-1.0) mg/dL AST (15-37) U/L ALT (16-63) U/L Alkaline Phosphatase (46-116) U/L C-Reactive Protein (<1.0) mg/dL Total Protein (6.4-8.2) g/dl Albumin (3.4-5.0) g/dl Globulin gm/dL Albumin/Globulin Ratio (1-2) Procalcitonin 0.77 H (<0.10) ng/mL 03/14/20 03/14/20 03/14/20 Range/Units 04:50 04:50 08:01 WBC (4.23-9.07) K/mm3 RBC (4.63-6.08) M/mm3 Hgb (13.7-17.5) gm/dl Hct (40.1-51.0) % MCV (79.0-92.2) fl MCH (25.7-32.2) pg MCHC (32.2-35.5) g/dl RDW Std Deviation (35.1-43.9) fL Plt Count (163-337) K/mm3 MPV (9.4-12.3) fl Neut % (Auto) (34.0-67.9) % Lymph % (Auto) (21.8-53.1) % Barbour % (Auto) (5.3-12.2) % Eos % (Auto) (0.8-7.0) Baso % (Auto) (0.1-1.2) % Neut # (Auto) (1.78-5.38) K/mm3 Lymph # (Auto) (1.32-3.57) K/mm3 Barbour # (Auto) (0.30-0.82) K/mm3 Eos # (Auto) (0.04-0.54) K/mm3 Baso # (Auto) (0.01-0.08) K/mm3 Manual Slide Review APTT 43.5 H (21.7-31.4) SECONDS Sodium 140 (136-145) mEq/L Potassium 3.6 (3.5-5.1) mEq/L Chloride 104 (98-107) mEq/L Carbon Dioxide 28 (21-32) mEq/L Anion Gap 11.6 (5-15) BUN 21 H (7-18) mg/dL Creatinine 2.4 H (0.7-1.3) mg/dL Est Cr Clr Drug Dosing 35.20 mL/min Estimated GFR (MDRD) 27 (>60) mL/min BUN/Creatinine Ratio 8.8 L (14-18) Glucose 144 H (80-115) mg/dL POC Glucose (80-115) mg/dL Hemoglobin A1c 7.40 H (4.50-6.20) % Lactic Acid (0.4-2.0) mmol/L Calcium 8.4 L (8.5-10.1) mg/dL Phosphorus 3.7 (2.6-4.7) mg/dL Magnesium 1.7 L (1.8-2.4) mg/dl Total Bilirubin 0.9 (0.2-1.0) mg/dL AST 25 (15-37) U/L ALT 37 (16-63) U/L Alkaline Phosphatase 115 (46-116) U/L C-Reactive Protein 18.9 H* (<1.0) mg/dL Total Protein 5.7 L (6.4-8.2) g/dl Albumin 1.8 L (3.4-5.0) g/dl Globulin 3.9 gm/dL Albumin/Globulin Ratio 0.5 L (1-2) Procalcitonin (<0.10) ng/mL 03/14/20 03/14/20 03/14/20 Range/Units 12:11 15:08 15:37 WBC (4.23-9.07) K/mm3 RBC (4.63-6.08) M/mm3 Hgb (13.7-17.5) gm/dl Hct (40.1-51.0) % MCV (79.0-92.2) fl MCH (25.7-32.2) pg MCHC (32.2-35.5) g/dl RDW Std Deviation (35.1-43.9) fL Plt Count (163-337) K/mm3 MPV (9.4-12.3) fl Neut % (Auto) (34.0-67.9) % Lymph % (Auto) (21.8-53.1) % Barbour % (Auto) (5.3-12.2) % Eos % (Auto) (0.8-7.0) Baso % (Auto) (0.1-1.2) % Neut # (Auto) (1.78-5.38) K/mm3 Lymph # (Auto) (1.32-3.57) K/mm3 Barbour # (Auto) (0.30-0.82) K/mm3 Eos # (Auto) (0.04-0.54) K/mm3 Baso # (Auto) (0.01-0.08) K/mm3 Manual Slide Review APTT 31.9 H (21.7-31.4) SECONDS Sodium (136-145) mEq/L Potassium (3.5-5.1) mEq/L Chloride (98-107) mEq/L Carbon Dioxide (21-32) mEq/L Anion Gap (5-15) BUN (7-18) mg/dL Creatinine (0.7-1.3) mg/dL Est Cr Clr Drug Dosing mL/min Estimated GFR (MDRD) (>60) mL/min BUN/Creatinine Ratio (14-18) Glucose (80-115) mg/dL POC Glucose 125 H 102 (80-115) mg/dL Hemoglobin A1c (4.50-6.20) % Lactic Acid (0.4-2.0) mmol/L Calcium (8.5-10.1) mg/dL Phosphorus (2.6-4.7) mg/dL Magnesium (1.8-2.4) mg/dl Total Bilirubin (0.2-1.0) mg/dL AST (15-37) U/L ALT (16-63) U/L Alkaline Phosphatase (46-116) U/L C-Reactive Protein (<1.0) mg/dL Total Protein (6.4-8.2) g/dl Albumin (3.4-5.0) g/dl Globulin gm/dL Albumin/Globulin Ratio (1-2) Procalcitonin (<0.10) ng/mL Med Orders - Current: Current Medications Acetaminophen (Tylenol) 650 mg PO Q4H PRN PRN Reason: Pain (Mild 1-3)/fever Hydrocodone Bitart/Acetaminophen (Ernul 325-5 Mg) 1 tab PO Q4H PRN PRN Reason: Pain (moderate 4-6) Albuterol (Proventil Neb Soln) 2.5 mg NEB ONETIME PRN PRN Reason: bronchodilation Amlodipine Besylate (Norvasc) 5 mg PO DAILY NICK Dextrose/Water (Dextrose 50% In Water) 50 ml IV ASDIRECTED PRN PRN Reason: Hypoglycemia Diphenhydramine HCl (Benadryl) 25 mg IVPUSH Q6H PRN PRN Reason: pruritis Ephedrine Sulfate (Ephedrine Sulfate) 5 mg IVPUSH ASDIRECTED PRN PRN Reason: Hypotension Fentanyl (Sublimaze) 50 mcg IVPUSH Q5M PRN PRN Reason: Pain Hydromorphone HCl (Dilaudid) 0.5 mg IVPUSH ONETIME PRN PRN Reason: Pain Piperacillin Sod/Tazobactam (Sod 4.5 gm/ Sodium Chloride) 100 mls @ 25 mls/hr IV Q8H [facility] Last Admin: 03/14/20 14:14 Dose: 25 mls/hr Documented by: Heparin Sodium/Dextrose (Heparin 25,000 Units In D5w 500 Ml) 500 mls @ 26 mls/hr IV TITRATE [facility]; Protocol Last Titration: 03/14/20 09:06 Dose: 1,515 units/hr, 30.3 mls/hr Documented by: Lactated Ringer's (Ringers, Lactated) 1,000 mls @ 100 mls/hr IV ASDIRECTED [facility] Last Admin: 03/14/20 12:05 Dose: 100 mls/hr Documented by: Insulin Human Lispro (Humalog) 0 unit SUBCUT QIDACANDBED [facility]; Protocol Miscellaneous Information (Remove Patch) 1 ea TRDERM ONETIME ONE Stop: 03/17/20 13:46 Ondansetron HCl (Zofran) 4 mg IV Q4H PRN PRN Reason: Nausea/Vomiting Ondansetron HCl (Zofran) 4 mg IVPUSH ONETIME PRN PRN Reason: Nausea/Vomiting Saccharomyces Boulardii (Florastor) 250 mg PO BID NICK Last Admin: 03/14/20 09:14 Dose: 250 mg Documented by: Discontinued Medications Albuterol (Proventil Neb Soln) 2.5 mg NEB ONETIME ONE Stop: 03/14/20 15:01 Last Admin: 03/14/20 15:04 Dose: 2.5 mg Documented by: Bupivacaine HCl/Epinephrine Bitart (Marcaine 0.5%/Epinephrine 1:200,000) Confirm Administered Dose 50 ml .ROUTE .STK-MED ONE Stop: 03/14/20 15:14 Last Admin: 03/14/20 16:23 Dose: 50 ml Documented by: Dexamethasone (Dexamethasone) Confirm Administered Dose 20 mg .ROUTE .STK-MED ONE Stop: 03/14/20 14:00 Ephedrine Sulfate (Ephedrine Sulfate) Confirm Administered Dose 50 mg .ROUTE .STK-MED ONE Stop: 03/14/20 16:19 Fentanyl (Sublimaze) Confirm Administered Dose 250 mcg .ROUTE .STK-MED ONE Stop: 03/14/20 14:01 Glycopyrrolate (Robinul) Confirm Administered Dose 0.8 mg .ROUTE .STK-MED ONE Stop: 03/14/20 16:44 Heparin Sodium (Porcine) (Heparin Sodium) 5,000 units IVPUSH BOLUS ONE; Protocol Stop: 03/13/20 21:16 Last Admin: 03/13/20 22:39 Dose: 5,000 units Documented by: Heparin Sodium (Porcine) (Heparin Sodium) 1,500 units IVPUSH ONETIME ONE Stop: 03/14/20 08:51 Last Admin: 03/14/20 09:13 Dose: 1,500 units Documented by: Hydromorphone HCl (Dilaudid) Confirm Administered Dose 0.5 mg .ROUTE .STK-MED ONE Stop: 03/14/20 14:00 Hydromorphone HCl (Dilaudid) Confirm Administered Dose 0.5 mg .ROUTE .STK-MED ONE Stop: 03/14/20 16:25 Hydromorphone HCl (Dilaudid) Confirm Administered Dose 0.5 mg .ROUTE .STK-MED ONE Stop: 03/14/20 17:20 Hydromorphone HCl (Dilaudid) Confirm Administered Dose 0.5 mg .ROUTE .STK-MED ONE Stop: 03/14/20 17:34 Piperacillin Sod/Tazobactam (Sod 4.5 gm/ Sodium Chloride) 100 mls @ 200 mls/hr IV ONETIME ONE Stop: 03/13/20 21:19 Last Admin: 03/13/20 22:38 Dose: 200 mls/hr Documented by: Lactated Ringer's (Ringers, Lactated) 1,000 mls @ 1,000 mls/hr IV .BOLUS ONE Stop: 03/14/20 10:42 Last Admin: 03/14/20 10:59 Dose: 1,000 mls/hr Documented by: Lidocaine HCl (Xylocaine-Mpf 1%) Confirm Administered Dose 4 mls @ as directed .ROUTE .STK-MED ONE Stop: 03/14/20 14:00 Lactated Ringer's (Ringers, Lactated) Confirm Administered Dose 2,000 mls @ as d irected .ROUTE .STK-MED ONE Stop: 03/14/20 14:00 Labetalol HCl (Normodyne) Confirm Administered Dose 100 mg .ROUTE .STK-MED ONE Stop: 03/14/20 16:31 Midazolam HCl (Versed 1 Mg/Ml) Confirm Administered Dose 2 mg .ROUTE .STK-MED ONE Stop: 03/14/20 14:01 Miscellaneous Medication (Phenylephrine 1 Mg/10 Ml-Ns) Confirm Administered Dose 1 mg .ROUTE .STK-MED ONE Stop: 03/14/20 14:00 Miscellaneous Medication (Phenylephrine 1 Mg/10 Ml-Ns) 0 mg IVPUSH ONETIME ONE Stop: 03/14/20 16:22 Neostigmine Methylsulfate (Neostigmine Methylsulfate) Confirm Administered Dose 5 mg .ROUTE .STK-MED ONE Stop: 03/14/20 16:44 Ondansetron HCl (Zofran) Confirm Administered Dose 4 mg .ROUTE .STK-MED ONE Stop: 03/14/20 14:00 Propofol (Diprivan 20 Ml) Confirm Administered Dose 200 mg .ROUTE .STK-MED ONE Stop: 03/14/20 14:00 Rocuronium Dubois (Zemuron) Confirm Administered Dose 50 mg .ROUTE .STK-MED ONE Stop: 03/14/20 14:00 Scopolamine (Transderm-Scop) 1.5 mg TRDERM ONETIME ONE Stop: 03/14/20 13:33 Last Admin: 03/14/20 14:14 Dose: 1.5 mg Documented by: - Exam Quality Assessment: No: Supplemental Oxygen General: Alert, Oriented HEENT: Pupils Equal, Mucous Membr. Moist/[place] Lungs: Clear to Auscultation, Normal Respiratory Effort Cardiovascular: Regular Rate, Regular Rhythm GI/Abdominal Exam: Normal Bowel Sounds, Soft, Tender (Right lower quadrant tenderness without guarding or rebound.) Extremities: Normal Inspection, Normal Range of Motion, No Pedal Edema Skin: Warm, Dry, Intact Psy/Mental Status: Alert, Normal Affect, Normal Mood Sepsis Event Note - Evaluation Sepsis Screening Result: Severe Sepsis Risk - Focused Exam Vital Signs: Vital Signs Temp Pulse Resp BP Pulse Ox Pulse Ox 03/14/20 15:04 92 L 03/14/20 12:30 98.4 F 95 18 123/70 95 03/14/20 08:13 98.1 F 89 18 106/64 91 L - Problem List & Annotations (1) Acute appendicitis SNOMED Code(s): 52755930 Code(s): K35.80 - UNSPECIFIED ACUTE APPENDICITIS Status: Acute Current Visit: No (2) Chronic renal insufficiency SNOMED Code(s): 610628116 Code(s): N18.9 - CHRONIC KIDNEY DISEASE, UNSPECIFIED Status: Acute Current Visit: No (3) Pneumonia due to COVID-19 virus SNOMED Code(s): 211933092705101182 Code(s): U07.1 - COVID-19; J12.89 - OTHER VIRAL PNEUMONIA Status: Acute C urrent Visit: No (4) Pulmonary embolism associated with COVID-19 SNOMED Code(s): 883928703 Code(s): U07.1 - COVID-19; I26.99 - OTHER PULMONARY EMBOLISM WITHOUT ACUTE COR PULMONALE Status: Acute Current Visit: No (5) HTN (hypertension) SNOMED Code(s): 01636912 Code(s): I10 - ESSENTIAL (PRIMARY) HYPERTENSION Status: Acute Current Visit: Yes (6) Prediabetes SNOMED Code(s): 785172228 Code(s): R73.03 - PREDIABETES Status: Acute Current Visit: Yes - Problem List Review Problem List Initiated/Reviewed/Updated: Yes - My Orders Last 24 Hours: My Active Orders 03/13/20 20:47 Oxygen Therapy [RC] PRN Up ad Gunjan [RC] ASDIRECTED VTE/DVT Education [RC] PER UNIT ROUTINE Vital Signs [RC] Q4H Acetaminophen [TylenoL] 650 mg PO Q4H PRN Acetaminophen/HYDROcodone [Ernul 325-5 MG] 1 tab PO Q4H PRN Ondansetron [Zofran] 4 mg IV Q4H PRN Resuscitation Status Routine 03/13/20 21:00 Saccharomyces Boulardii [Florastor] 250 mg PO BID 03/13/20 21:02 Patient Status [ADT] Routine 03/13/20 21:15 Heparin Sodium/D5W [Heparin 25,000 Units in D5W 500 ML] 500 ml IV TITRATE 03/13/20 22:15 Lactated Ringers [Ringers, Lactated] 1,000 ml IV ASDIRECTED 03/14/20 06:00 Piperacillin/Tazobactam [Piperacil-Tazobact] 4.5 gm Sodium Chloride 0.9% [Normal Saline] 100 ml IV Q8H 03/14/20 Breakfast Clear Liquid Diet [DIET] 03/14/20 11:45 Blood Glucose Check, Bedside [RC] QIDACANDBED Dextrose 50% in Water 50 ml IV ASDIRECTED PRN 03/14/20 13:16 Notify Provider Consults [RC] ASDIRECTED Consult to Physician [CONS] Routine 03/14/20 17:00 Insulin Lispro [HumaLOG] See Protocol SUBCUT QIDACANDBED 03/15/20 05:00 PROCALCITONIN [REF] Routine 03/15/20 05:11 C-REACTIVE PROTEIN [CHEM] AM CBC WITH AUTO DIFF [HEME] AM CMP [COMPREHENSIVE METABOLIC PN,CMP] [CHEM] AM 03/15/20 09:00 amLODIPine [Norvasc] 5 mg PO DAILY 03/16/20 07:00 CBC W/O DIFF,HEMOGRAM [HEME] MOTH@0700 03/19/20 07:00 CBC W/O DIFF,HEMOGRAM [HEME] MOTH@0700 03/23/20 07:00 CBC W/O DIFF,HEMOGRAM [HEME] MOTH@0700 03/26/20 07:00 CBC W/O DIFF,HEMOGRAM [HEME] MOTH@0700 03/30/20 07:00 CBC W/O DIFF,HEMOGRAM [HEME] MOTH@0700 04/02/20 07:00 CBC W/O DIFF,HEMOGRAM [HEME] MOTH@0700 - Plan Plan:: Assessment Appendicitis * Discussed patient with Dr. Andrew. Patient's white count did go up today and he feels that it would be best if he went to surgery this afternoon. Pulmonary embolus secondary to COVID-19 * Chest x-ray shows groundglass opacity. * Oxygen saturations greater than 90% on room air. * Minimal respiratory symptoms. * On heparin drip Acute kidney injury on chronic renal insufficiency * Kidney function worsened overnight with creatinine going up to 2.4 Chronic medical: Hypertension, prediabetes, gout, chronic renal insufficiency Plan * Consult Dr. Andrew * Give patient 1000 mL bolus of LR * Dr. Andrew plans on taking the surgery this afternoon. * LR at 100 mL an hour * Clear liquids * VTE prophylaxis with therapeutic heparin * CODE STATUS: Full code * Length of stay will depend on surgical opinion
--- NOTE | 2020-03-14 18:24 | PCM.POSTAN ---
POST ANESTHESIA ASSESSMENT - MENTAL STATUS Mental Status: Alert - VITAL SIGNS Vital Signs: Last Vital Signs Temp 99.1 03/14/201814 Pulse 98 03/14/201814 Resp 25 03/14/201814 BP 117/55 03/14/201814 Pulse Ox 93% 03/14/201814 - RESPIRATORY Respiratory Status: Respiratory Rate WNL, Airway Patent, O2 Saturation Stable, Supplemental Oxygen - CARDIOVASCULAR CV Status: Pulse Rate WNL, Blood Pressure Stable - GASTROINTESTINAL GI Status: No Symptoms - POST OP HYDRATION Hydration Status: Adequate & Stable
--- NOTE | 2020-03-14 18:27 | PCM.PRNOTE ---
- Free Text/Narrative Note: Date: 03/14/2020 Operation: laparoscopic appendectomy Surgeon: Jimmy Andrew MD EBL:100 cc Antibiotic: zosyn 4.5 g IV pre-op DVT PPX: SCD Findings: chronic appendicitis with dense adhesions and periappendiceal abscess in right pelvis Detailed Report: Patient was taken to the operating room and placed in supine position. Timeout was performed, and general endotracheal anesthesia was initiated. Abdominal hair was clipped, and the left arm was tucked at the patient's side. The abdomen was prepped and draped in usual sterile fashion. A Veress needle was inserted at the subcostal margin on the left side at Cummins's point, and pneumoperitoneum was established. A bladed 12 mm port was placed at the midline epigastrium between the umbilicus and the xiphoid. Two additional 5 mm ports were placed at the left upper and lower lateral abdomen. The laparoscope was inserted through the lateral superior port, and the patient was positioned in Trendelenburg, and rotated towards the surgeon standing on the patient's left side. The Ligasure was used to divided herniated omentum at the umbilicus. There were dense inflammatory adhesions at the anterior and right lateral aspect of the pelvic inlet. Careful use of blunt and sharp dissection using the suction product development ecologist, laparoscopic scissors, and LigaSure were used to free up all the periappendiceal adhesions. During dissection, an abscess cavity was unroofed, and thick white purulent fluid was suctioned. An additional 5 mm port was placed at the right lower quadrant to aid with proper retraction. Chronically inflamed terminal ileum and surrounding epiploic fat was carefully retracted out of view of the appendix. The tinea of the colon were traced down to the base of the cecum, and the base of the appendix was apparent. The base of the appendix was defined, and a window through the mesoappendix was made in order to allow passage of the 30 mm powered stapler. The appendix was stapled at the base of the cecum. Careful dissection of the appendix from surrounding inflammatory attachments proceeded to its distal aspect. Once the appendix was free, it was placed in Endo Catch bag and removed. The dissection field was thoroughly suctioned. No irrigation was used. Next, attention was turned to primary repair of the umbilical hernia. A transverse incision was made over the umbilical skin, and a moderate amount of omental fat was easily removed through this incision. The hernia sac was mostly removed as well. Under laparoscopic vision, the PMI laparoscopic suture passer with 0 Vicryl was used to make a [id number] primary closure of the hernia site. Excess skin was excised, and skin was tacked down to the underlying fascia to recreate the umbilicus. Skin was closed with interrupted Vicryl suture. Next a 10 Persian RONALD drain was passed through the 12 mm port and out through A 10 Persian Ryan-Colon drain was introduced into the abdomen and brought out through the right lower quadrant site. The drain lay in the dissection field where the appendix was. The 12 mm port was removed, and the incision was closed at the level of the fascia with 0 Vicryl using a PMI laparoscopic suture passer. The midline incisions were closed at the skin with Vicryl suture. The drain site was closed partially with an interrupted nylon suture, and the suture was used to secure the drain at the skin. Wounds were dressed with Mastisol and Steri-Strips. The patient tolerated the procedure well.
--- NOTE | 2020-03-14 18:40 | PCM48HPAN ---
Post Anesthesia Note - EVALUATION WITHIN 48HRS OF ANESTHETIC Vital Signs in Normal Range: Yes Patient Participated in Evaluation: Yes Respiratory Function Stable: Yes Airway Patent: Yes Cardiovascular Function Stable: Yes Hydration Status Stable: Yes Pain Control Satisfactory: Yes Nausea and Vomiting Control Satisfactory: Yes Mental Status Recovered: Yes Vital Signs: Last Vital Signs Temp 37.3 C 03/14/20 18:15 Pulse 93 03/14/20 18:30 Resp 15 03/14/20 18:30 BP 103/60 03/14/20 18:30 Pulse Ox 97 03/14/20 18:30
[2020-03-14] MEDS: Acetaminophen/HYDROcodone 325-5 MG Tab PO PRN (22:28)
[2020-03-15] MEDS: Lactated Ringers 1,000 ML IV SCH ×3 (02:21→22:00)
[2020-03-15] MEDS: Piperacillin/Tazobactam 4.5 GM in Sodium Chloride 0.9% 100 ML IV SCH ×3 (06:36→21:36)
[2020-03-15] MEDS ORDERED: Sodium Chloride 0.9% 1,000 ML IV ONE (08:07)
[2020-03-15] MEDS: Insulin Lispro 100 Units/ML 3 ML Vial SUBCUT SCH ×4 (09:28→22:25)
--- NOTE | 2020-03-15 09:30 | PCM.CONS ---
H&P History of Present Illness - General Date of Service: 03/15/20 Admit Problem/Dx: Admission Diagnosis/Problem Admission Diagnosis/Problem Appendicitis Source of Information: Patient, Provider History Limitations: Reports: No Limitations - History of Present Illness Initial Comments - Free Text/Narative: Mr. Louis is a 65 yo man who initially presented with acute appendicitis about 3 weeks ago and was seen by Dr. Huston. The patient had had a recent diagnosis of COVID and was hypoxic at the time of evaluation then. He was managed with antibiotics. Subsequently, he develop PE and was started on eliquis for this. After stopping a course of antibiotics for the appendicitis, the patient developed recurrent RLQ pain and was seen by Dr. Ferreira in the [facility]. His WBC was elevated at 15,000 and a non-contrast CT showed inflammatory changes around the appendix with a fecalith. The patient was admitted by the hospitalist on 03/13, and I was consulted on 03/14. The patient had significant RLQ tenderness and a WBC of 18,000. He was taken to the OR yesterday for laparoscopic appendectomy and drainage of periappendiceal abscess, as well as primary repair of an umbilical hernia which contained incarcerated omental fat. Today, the patient appears well overall, with serosanguinous drainage from a RONALD left in the RLQ dissection bed. - Related Data Allergies/Adverse Reactions: Allergies Allergy/AdvReac Type Severity Reaction Status Date / Time azithromycin [From Zithromax] Allergy Swelling Verified 03/14/20 09:02 Home Medications: Home Meds Aspirin 81 mg PO DAILY 06/03/19 [History] B2/Vits A,C,E/Lut/Zeaxanth/Min [Icaps] 1 tab PO DAILY 06/03/19 [History] Multivitamin [Multivitamins] 1 tab PO DAILY 06/03/19 [History] Olmesartan Medoxomil [Benicar] 20 mg PO DAILY 06/03/19 [History] Amoxicillin/Clavulanate K [Augmentin 875-125 MG] 1 tab PO Q12H #6 tablet 03/01/20 [Rx] Apixaban [Eliquis] 10 mg PO BID #74 tablet 03/01/20 [Rx] Saccharomyces Boulardii [Florastor] 250 mg PO BID #60 cap 03/01/20 [Rx] amLODIPine [Norvasc] 5 mg PO DAILY tablet 03/01/20 [Rx] Past Medical History HEENT History: Reports: Impaired Vision, Other (See Below) Other HEENT History: wears glasses, wisdom teeth removed Cardiovascular History: Reports: Hypertension Genitourinary History: Reports: Chronic Renal Insuffiency Musculoskeletal History: Reports: Gout Endocrine/Metabolic History: Reports: Other (See Below) (Prediabetes) Other Endocrine/Metabolic History: prediabetic Oncologic (Cancer) History: Reports: Squamous Cell Carcinoma Dermatologic History: Reports: Eczema Other Dermatologic History: skin cancer- melanoma/basal cell - Infectious Disease History Infectious Disease History: Reports: Chicken Pox, Measles, Mumps, Novel Coronavirus - Past Surgical History HEENT Surgical History: Reports: Oral Surgery Cardiovascular Surgical History: Reports: None Male Surgical History: Reports: Circumcision Musculoskeletal Surgical History: Reports: None Oncologic Surgical History: Reports: Other (See Below) Other Oncologic Surgeries/Procedures: skin cancer behind ear and nose Social & Family History - Family History Family Medical History: No Pertinent Family History Cardiac: Reports: Hypertension Musculoskeletal: Reports: Other (See Below) (scoliosis) - Tobacco Use Tobacco Use Status *Q: Never Tobacco User Second Hand Smoke Exposure: No - Caffeine Use Caffeine Use: Reports: Coffee, Soda Other Caffeine Use: one can pop a day and 1-2 cups of coffee - Recreational Drug Use Recreational Drug Use: No - Living Situation & Occupation Living situation: Reports: , with Spouse, with Family (Son) 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) H&P Review of Systems - Review of Systems: Review Of Systems: See Below General: Reports: No Symptoms HEENT: Reports: No Symptoms Pulmonary: Reports: No Symptoms Cardiovascular: Reports: No Symptoms Gastrointestinal: Reports: Abdominal Pain Genitourinary: Reports: Dysuria Musculoskeletal: Reports: No Symptoms Skin: Reports: No Symptoms Psychiatric: Reports: No Symptoms Neurological: Reports: No Symptoms Hematologic/Lymphatic: Reports: Easy Bleeding Immunologic: Reports: No Symptoms Exam - Exam Exam: See Below - Vital Signs Vital Signs: Last Vital Signs Temp 36.4 C 03/15/20 03:05 Pulse 73 03/15/20 03:05 Resp 12 03/15/20 03:05 BP 102/57 L 03/15/20 03:05 Pulse Ox 97 03/15/20 03:05 Weight: 111.13 kg - Exam General: Oriented, Cooperative HEENT: Conjunctiva Clear Neck: Trachea Midline Lungs: Normal Respiratory Effort Cardiovascular: Regular Rate, Regular Rhythm GI/Abdominal Exam: Distended, Tender, Other (RONALD drain in place with serosa nguinous output) Extremities: Normal Inspection Skin: Warm, Dry Psychiatric: Normal Mood - Patient Data Lab Results Last 24 hrs: Laboratory Results - last 24 hr 03/13/20 03/14/20 03/14/20 Range/Units 21:10 12:11 15:08 WBC (4.23-9.07) K/mm3 RBC (4.63-6.08) M/mm3 Hgb (13.7-17.5) gm/dl Hct (40.1-51.0) % MCV (79.0-92.2) fl MCH (25.7-32.2) pg MCHC (32.2-35.5) g/dl RDW Std Deviation (35.1-43.9) fL Plt Count (163-337) K/mm3 MPV (9.4-12.3) fl Neut % (Auto) (34.0-67.9) % Lymph % (Auto) (21.8-53.1) % Brown % (Auto) (5.3-12.2) % Eos % (Auto) (0.8-7.0) Baso % (Auto) (0.1-1.2) % Neut # (Auto) (1.78-5.38) K/mm3 Lymph # (Auto) (1.32-3.57) K/mm3 Brown # (Auto) (0.30-0.82) K/mm3 Eos # (Auto) (0.04-0.54) K/mm3 Baso # (Auto) (0.01-0.08) K/mm3 Manual Slide Review APTT 31.9 H (21.7-31.4) SECONDS Sodium (136-145) mEq/L Potassium (3.5-5.1) mEq/L Chloride (98-107) mEq/L Carbon Dioxide (21-32) mEq/L Anion Gap (5-15) BUN (7-18) mg/dL Creatinine (0.7-1.3) mg/dL Est Cr Clr Drug Dosing mL/min Estimated GFR (MDRD) (>60) mL/min BUN/Creatinine Ratio (14-18) Glucose (80-115) mg/dL POC Glucose 125 H (80-115) mg/dL Calcium (8.5-10.1) mg/dL Total Bilirubin (0.2-1.0) mg/dL AST (15-37) U/L ALT (16-63) U/L Alkaline Phosphatase (46-116) U/L C-Reactive Protein (<1.0) mg/dL Total Protein (6.4-8.2) g/dl Albumin (3.4-5.0) g/dl Globulin gm/dL Albumin/Globulin Ratio (1-2) Procalcitonin 0.77 H (<0.10) ng/mL 03/14/20 03/14/20 03/15/20 Range/Units 15:37 20:59 04:15 WBC 16.33 H (4.23-9.07) K/mm3 RBC 3.73 L (4.63-6.08) M/mm3 Hgb 10.5 L (13.7-17.5) gm/dl Hct 33.4 L (40.1-51.0) % MCV 89.5 (79.0-92.2) fl MCH 28.2 (25.7-32.2) pg MCHC 31.4 L (32.2-35.5) g/dl RDW Std Deviation 44.9 H (35.1-43.9) fL Plt Count 326 (163-337) K/mm3 MPV 8.7 L (9.4-12.3) fl Neut % (Auto) 89.8 H (34.0-67.9) % Lymph % (Auto) 5.9 L (21.8-53.1) % Brown % (Auto) 3.8 L (5.3-12.2) % Eos % (Auto) 0 L (0.8-7.0) Baso % (Auto) 0.1 (0.1-1.2) % Neut # (Auto) 14.67 H (1.78-5.38) K/mm3 Lymph # (Auto) 0.97 L (1.32-3.57) K/mm3 Brown # (Auto) 0.62 (0.30-0.82) K/mm3 Eos # (Auto) 0.00 L (0.04-0.54) K/mm3 Baso # (Auto) 0.01 (0.01-0.08) K/mm3 Manual Slide Review Abnormal smear APTT (21.7-31.4) SECONDS Sodium (136-145) mEq/L Potassium (3.5-5.1) mEq/L Chloride (98-107) mEq/L Carbon Dioxide (21-32) mEq/L Anion Gap (5-15) BUN (7-18) mg/dL Creatinine (0.7-1.3) mg/dL Est Cr Clr Drug Dosing mL/min Estimated GFR (MDRD) (>60) mL/min BUN/Creatinine Ratio (14-18) Glucose (80-115) mg/dL POC Glucose 102 195 H (80-115) mg/dL Calcium (8.5-10.1) mg/dL Total Bilirubin (0.2-1.0) mg/dL AST (15-37) U/L ALT (16-63) U/L Alkaline Phosphatase (46-116) U/L C-Reactive Protein (<1.0) mg/dL Total Protein (6.4-8.2) g/dl Albumin (3.4-5.0) g/dl Globulin gm/dL Albumin/Globulin Ratio (1-2) Procalcitonin (<0.10) ng/mL 03/15/20 03/15/20 Range/Units 04:15 06:36 WBC (4.23-9.07) K/mm3 RBC (4.63-6.08) M/mm3 Hgb (13.7-17.5) gm/dl Hct (40.1-51.0) % MCV (79.0-92.2) fl MCH (25.7-32.2) pg MCHC (32.2-35.5) g/dl RDW Std Deviation (35.1-43.9) fL Plt Count (163-337) K/mm3 MPV (9.4-12.3) fl Neut % (Auto) (34.0-67.9) % Lymph % (Auto) (21.8-53.1) % Brown % (Auto) (5.3-12.2) % Eos % (Auto) (0.8-7.0) Baso % (Auto) (0.1-1.2) % Neut # (Auto) (1.78-5.38) K/mm3 Lymph # (Auto) (1.32-3.57) K/mm3 Brown # (Auto) (0.30-0.82) K/mm3 Eos # (Auto) (0.04-0.54) K/mm3 Baso # (Auto) (0.01-0.08) K/mm3 Manual Slide Review APTT (21.7-31.4) SECONDS Sodium 138 (136-145) mEq/L Potassium 4.3 (3.5-5.1) mEq/L Chloride 104 (98-107) mEq/L Carbon Dioxide 25 (21-32) mEq/L Anion Gap 13.3 (5-15) BUN 23 H (7-18) mg/dL Creatinine 2.7 H (0.7-1.3) mg/dL Est Cr Clr Drug Dosing 31.29 mL/min Estimated GFR (MDRD) 24 (>60) mL/min BUN/Creatinine Ratio 8.5 L (14-18) Glucose 179 H (80-115) mg/dL POC Glucose 178 H (80-115) mg/dL Calcium 8.2 L (8.5-10.1) mg/dL Total Bilirubin 0.6 (0.2-1.0) mg/dL AST 17 (15-37) U/L ALT 31 (16-63) U/L Alkaline Phosphatase 108 (46-116) U/L C-Reactive Protein 19.9 H* (<1.0) mg/dL Total Protein 5.5 L (6.4-8.2) g/dl Albumin 1.6 L (3.4-5.0) g/dl Globulin 3.9 gm/dL Albumin/Globulin Ratio 0.4 L (1-2) Procalcitonin (<0.10) ng/mL Result Diagrams: 03/15/20 04:15 03/15/20 04:15 Sepsis Event Note - Evaluation Sepsis Screening Result: No Definite Risk - Focused Exam Vital Signs: Vital Signs Temp Pulse Resp BP Pulse Ox Pulse Ox Pulse Ox 03/15/20 03:05 36.4 C 73 12 102/57 L 97 03/15/20 02:10 80 99/59 L 91 L 03/15/20 01:30 95 03/15/20 01:19 84 97/59 L 96 03/15/20 00:51 36.5 C 97 18 93/61 92 L 03/15/20 00:20 92 L 03/15/20 00:05 36.8 C 83 18 134/60 97 03/15/20 00:01 36.8 C 92 102/60 97 03/14/20 23:01 78 105/64 94 L 03/14/20 22:01 81 114/66 94 L Consult PN Assessment/Plan Procedures: Procedures ASSAY OF FERRITIN (02/17/20) ASSAY OF NATRIURETIC PEPTIDE (02/17/20) ASSAY OF TROPONIN QUANT (02/17/20) C-REACTIVE PROTEIN (02/17/20) COMPLETE CBC W/AUTO DIFF WBC (02/17/20) COMPREHEN METABOLIC PANEL (02/17/20) ELECTROCARDIOGRAM TRACING (02/17/20) EMERGENCY DEPT VISIT (02/17/20) EMERGENCY DEPT VISIT (06/03/19) FIBRIN DEGRADATION QUANT (02/17/20) GLYCOSYLATED HEMOGLOBIN TEST (04/03/17) LACTATE (LD) (LDH) ENZYME (02/17/20) LIPID PANEL (09/30/16) MRI BRAIN STEM W/O DYE (05/30/19) ROUTINE VENIPUNCTURE (02/17/20) UR ALBUMIN QUANTITATIVE (04/03/17) URINALYSIS AUTO W/O SCOPE (09/30/16) X-RAY EXAM CHEST 1 VIEW (02/17/20) X-RAY EXAM UNILAT RIBS/CHEST (06/03/19) Problem List Initiated/Reviewed/Updated: Yes My Orders Last 24 Hours: My Active Orders 03/14/20 13:15 Schedule Procedure [COMM] Routine 03/14/20 18:16 Patient Status [ADT] Routine 03/14/20 18:18 Morphine 1 mg IVPUSH Q4H PRN 03/15/20 Lunch Regular Diet [DIET] 03/15/20 21:00 Apixaban [Eliquis] 10 mg PO BID Plan: Transfer to [place] -morphine, norco prn pain -IS, OOB, pulmonary toilet -LR @ 100 cc/hr. Bolus this morning for slightly elevated creatinine above baseline -advance to regular diet -continue IV zosyn -restart eliquis for PE this evening -SCD -recheck labs in AM
[2020-03-15] MEDS: Saccharomyces Boulardii (Probiotic) 250 MG Cap PO SCH ×2 (09:33→20:34)
[2020-03-15] MEDS: Acetaminophen/HYDROcodone 325-5 MG Tab PO PRN ×3 (09:39→21:37)
[2020-03-15] MEDS: Apixaban 5 MG Tab PO SCH ×2 (11:48→20:34)
[2020-03-15] MEDS: amLODIPine 5 MG Tab PO SCH (11:51)
--- NOTE | 2020-03-15 16:39 | PCM.SN.2 ---
- Free Text/Narrative Note: Patient's care handed over to Dr. Andrew.
[2020-03-16] MEDS: Acetaminophen/HYDROcodone 325-5 MG Tab PO PRN ×4 (05:22→22:00)
[2020-03-16] MEDS: Piperacillin/Tazobactam 4.5 GM in Sodium Chloride 0.9% 100 ML IV SCH (06:01)
[2020-03-16] MEDS ORDERED: Sodium Chloride 0.9% 1,000 ML IV ONE (08:05)
[2020-03-16] MEDS: Insulin Lispro 100 Units/ML 3 ML Vial SUBCUT SCH ×4 (08:12→21:01)
--- NOTE | 2020-03-16 09:32 | PCM.SN.2 ---
- Free Text/Narrative Note: Admitted from [facility] 03/13 with chronic appendicitis and associated abscess. Taken to OR 03/14 for abscess drainage and appendectomy. S: abdominal pain improved. No flatus since OR. Tolerating regular diet. Voiding without issue. O: AF-VSS Hgb stable at 10.5 WBC down to 13,000 from 16,000 Cr baseline seems to be 2, but up to 3 post op. Low BUN/Cr ratio with ample urine output Awake and alert, no distress Comfortable on room air RRR Abd soft, appropriately tender, incision sites clean, dry, intact, RONALD drain with minimal serosanguinous drainage A: Overall doing well, but rise in creatinine is concerning for acute kidney injury. However, he is net positive significantly on fluids and is making ample urine. -radha -switch from IV zosyn to oral levofloxacin and metronidazole -obtain urinalysis -await return of bowel function -repeat labs in AM
[2020-03-16] MEDS: amLODIPine 5 MG Tab PO SCH (09:39)
[2020-03-16] MEDS: Saccharomyces Boulardii (Probiotic) 250 MG Cap PO SCH ×2 (09:39→21:08)
[2020-03-16] MEDS: Apixaban 5 MG Tab PO SCH ×2 (09:40→21:07)
[2020-03-16] MEDS ORDERED: Levofloxacin 750 MG Tab PO SCH (14:00)
[2020-03-16] MEDS: metroNIDAZOLE 500 MG Tab PO SCH ×2 (14:07→21:08)
[2020-03-17] MEDS: Acetaminophen/HYDROcodone 325-5 MG Tab PO PRN ×2 (06:14→15:09)
[2020-03-17] MEDS: metroNIDAZOLE 500 MG Tab PO SCH ×2 (06:14→12:59)
[2020-03-17] MEDS: Insulin Lispro 100 Units/ML 3 ML Vial SUBCUT SCH ×2 (07:27→12:54)
[2020-03-17] MEDS: Apixaban 5 MG Tab PO SCH (08:59)
[2020-03-17] MEDS: amLODIPine 5 MG Tab PO SCH (08:59)
[2020-03-17] MEDS: Saccharomyces Boulardii (Probiotic) 250 MG Cap PO SCH (08:59)
--- NOTE | 2020-03-17 11:57 | PCM.SN.2 ---
- Free Text/Narrative Note: Admitted from [facility] 03/13 with chronic appendicitis and associated abscess. Taken to OR 03/14 for abscess drainage and appendectomy. S: abdominal pain improved. Passing flatus, had a BM. Tolerating regular diet. Voiding without issue. O: AF-VSS Hgb stable at 10.4 WBC down to normal this morning Cr baseline seems to be 2, but up to 3 post op, same today as yesterday. Low BUN/Cr ratio with ample urine output Awake and alert, no distress Comfortable on room air RRR Abd soft, appropriately tender, incision sites clean, dry, intact, RONALD drain with minimal serosanguinous drainage A: Overall doing well, but acute elevation in creatinine is concerning for acute kidney injury. Urinalysis was unrevealing. Discussed with Dr. Crowell. Avoid nephrotoxic medication. Plan for renal ultrasound today to rule out hydronephrosis or other evidence or ureteral injury/ post-operative complication. -if US looks okay, anticipate drain removal and discharge to home as early as this afternoon. -continue oral levofloxacin and metronidazole
--- NOTE | 2020-03-17 12:44 | US ---
PROCEDURE INFORMATION: Exam: US Retroperitoneal; Complete; Kidneys and Bladder Exam date and time: 03/17/2020 11:35 AM Age: 65 years old Clinical indication: Abnormal findings; Abnormal lab test; Other: Elevated creatine; Prior surgery; Surgery date: Post-operative (0-2 days); Surgery type: Appendectomy TECHNIQUE: Imaging protocol: Real-time ultrasound of the retroperitoneum with image documentation. Complete exam focused on the kidneys and bladder. COMPARISON: CT Abdomen Pelvis wo Cont 03/13/2020 2:42 PM FINDINGS: Right kidney: Kidneys are echogenic consistent with renal insufficiency and renal failure Right kidney measures 12.1 cm. No hydronephrosis Resistive index of the right kidney 0.65 - 0.69 Cyst in the right kidney 2.1 x 1.2 x 1.6 cm. Smaller cyst in the right kidney 7 mm Left kidney: Left kidney measures 11.7 cm. No hydronephrosis Resistive index of the left kidney 0.66-0.68 Cystic structure in the left kidney 3 x 1.6 x 2.5 cm Urinary bladder: Prevoid bladder volume 484 cubic cm Postvoid bladder volume 33 cubic cm Bilateral ureteral jets Bladder wall measures 4.7 mm IMPRESSION: No hydronephrosis Normal resistive indices Echogenic kidneys may reflect renal failure COMMENTS: Consistent with the [employer]'s Incidental Findings Committee white paper ([employer] 2018): Any incidental renal lesion less than 1 cm or classified as too small to characterize, or any incidental cystic renal lesion characterized as simple-appearing, is likely benign. No follow-up imaging is recommended for these lesions per consensus recommendations based on imaging criteria. Thank you for allowing us to participate in the care of your patient. Dictated and Authenticated by: Nicole Corrales MD 03/17/2020 1:40 PM Central Time ([place] & [place]) RICARDO
--- NOTE | 2020-03-17 14:36 | PCM.DCSUM1 ---
Discharge Summary - Hospital Course Free Text/Narrative:: Admitted by Dr. Crowell on 03/13 at the request of Dr. Ferreira, who had seen the patient in clinic for his appendicitis which had been managed for weeks with antibiotics given acute comorbidity including COVID and pulmonary embolism. Although he was treated with IV zosyn on admission, he had a rising leukocytosis and CT scan showing appendicitis with fecalith. He was taken to the OR on 03/14 for laparoscopic abscess drainage and appendectomy with drain placement. Postoperatively he did well and leukocytosis resolved. However, despite adequate volume resuscitation and ample urine output, the patient had an acute rise in creatinine from baseline of 2 to 3. Urinalysis and renal ultrasound revealed no etiology for the increase. He settled at 3, with otherwise normal electrolytes. The US showed echogenic kidneys consistent with chronic kidney disease. He was deemed fit for discharge to home on POD 3, after return of bowel function. He will follow up in clinic tomorrow for drain removal after hold his next two doses of eliquis. He will follow up with PCP Dr. Mcclain regarding his renal function next week. Diagnosis: Stroke: No - Discharge Data Discharge Date: 03/17/20 Discharge Disposition: Home, Self-Care 01 Condition: Good - Referral to Home Health Primary Care Physician: Wesley Mcclain MD - Patient Summary/Data Operative Procedure(s) Performed: laparoscopic abscess drainage and appendectomy Consults: Consultations 03/14/20 13:16 Consult to Physician [CONS] Routine - Patient Instructions Diet: Usual Diet as Tolerated Activity: As Tolerated, No Lifting Over 10 Pounds Showering/Bathing: May Shower Wound/Incision Care: Keep Operative Site/Wound Site Clean and Dry Notify Provider of: Fever, Increased Pain, Swelling and Redness, Drainage, Nausea and/or Vomiting - Discharge Plan *PRESCRIPTION DRUG MONITORING PROGRAM REVIEWED*: Not Applicable *COPY OF PRESCRIPTION DRUG MONITORING REPORT IN PATIENT BUCK: Not Applicable Prescriptions/Med Rec: Apixaban [Eliquis] 5 mg PO BID #30 tablet metroNIDAZOLE [Flagyl] 500 mg PO Q8H #21 tab Levofloxacin 750 mg PO DAILY #7 tablet oxyCODONE 5 mg PO Q4H PRN #15 tab PRN Reason: Pain Home Medications: Home Meds Aspirin 81 mg PO DAILY 06/03/19 [History] B2/Vits A,C,E/Lut/Zeaxanth/Min [Icaps] 1 tab PO DAILY 06/03/19 [History] Multivitamin [Multivitamins] 1 tab PO DAILY 06/03/19 [History] Olmesartan Medoxomil [Benicar] 20 mg PO DAILY 06/03/19 [History] Amoxicillin/Clavulanate K [Augmentin 875-125 MG] 1 tab PO Q12H #6 tablet 03/01/20 [Rx] Apixaban [Eliquis] 10 mg PO BID #74 tablet 03/01/20 [Rx] Saccharomyces Boulardii [Florastor] 250 mg PO BID #60 cap 03/01/20 [Rx] amLODIPine [Norvasc] 5 mg PO DAILY tablet 03/01/20 [Rx] Apixaban [Eliquis] 5 mg PO BID #30 tablet 03/17/20 [Rx] Levofloxacin 750 mg PO DAILY #7 tablet 03/17/20 [Rx] metroNIDAZOLE [Flagyl] 500 mg PO Q8H #21 tab 03/17/20 [Rx] oxyCODONE 5 mg PO Q4H PRN #15 tab 03/17/20 [Rx] Oxygen Therapy Mode: Room Air Patient Handouts: Appendicitis, Adult, Sepsis, Diagnosis, Adult, Pulmonary Embolism, Apixaban oral tablets, Venous Thromboembolism Prevention - Discharge Summary/Plan Comment DC Time >30 min.: No - Patient Data Vitals - Most Recent: Last Vital Signs Temp 36.7 C 03/17/20 11:14 Pulse 89 03/17/20 11:14 Resp 20 03/17/20 11:14 BP 140/70 03/17/20 11:14 Pulse Ox 93 L 03/17/20 11:14 Weight - Most Recent: 115.666 kg I&O - Last 24 hours: Intake & Output 03/16/20 03/17/20 03/17/20 22:59 06:59 14:59 Intake Total 1210 2000 480 Output Total 1720 651 Balance -510 1349 480 Lab Results - Last 24 hrs: Laboratory Results - last 24 hr 03/16/20 03/16/20 03/17/20 Range/Units 17:53 20:53 04:58 WBC (4.23-9.07) K/mm3 RBC (4.63-6.08) M/mm3 Hgb (13.7-17.5) gm/dl Hct (40.1-51.0) % MCV (79.0-92.2) fl MCH (25.7-32.2) pg MCHC (32.2-35.5) g/dl RDW Std Deviation (35.1-43.9) fL Plt Count (163-337) K/mm3 MPV (9.4-12.3) fl Neut % (Auto) (34.0-67.9) % Lymph % (Auto) (21.8-53.1) % [place] % (Auto) (5.3-12.2) % Eos % (Auto) (0.8-7.0) Baso % (Auto) (0.1-1.2) % Neut # (Auto) (1.78-5.38) K/mm3 Lymph # (Auto) (1.32-3.57) K/mm3 [place] # (Auto) (0.30-0.82) K/mm3 Eos # (Auto) (0.04-0.54) K/mm3 Baso # (Auto) (0.01-0.08) K/mm3 Manual Slide Review Sodium 144 (136-145) mEq/L Potassium 3.8 (3.5-5.1) mEq/L Chloride 110 H (98-107) mEq/L Carbon Dioxide 27 (21-32) mEq/L Anion Gap 10.8 (5-15) BUN 23 H (7-18) mg/dL Creatinine 3.0 H (0.7-1.3) mg/dL Est Cr Clr Drug Dosing 28.16 mL/min Estimated GFR (MDRD) 21 (>60) mL/min BUN/Creatinine Ratio 7.7 L (14-18) Glucose 138 H (80-115) mg/dL POC Glucose 140 H 167 H (80-115) mg/dL Calcium 8.4 L (8.5-10.1) mg/dL 03/17/20 03/17/20 Range/Units 04:58 06:53 WBC 8.24 (4.23-9.07) K/mm3 RBC 3.74 L (4.63-6.08) M/mm3 Hgb 10.4 L (13.7-17.5) gm/dl Hct 33.8 L (40.1-51.0) % MCV 90.4 (79.0-92.2) fl MCH 27.8 (25.7-32.2) pg MCHC 30.8 L (32.2-35.5) g/dl RDW Std Deviation 45.2 H (35.1-43.9) fL Plt Count 394 H (163-337) K/mm3 MPV 9.2 L (9.4-12.3) fl Neut % (Auto) 69.2 H (34.0-67.9) % Lymph % (Auto) 15.2 L (21.8-53.1) % [place] % (Auto) 9.0 (5.3-12.2) % Eos % (Auto) 2.4 (0.8-7.0) Baso % (Auto) 0.4 (0.1-1.2) % Neut # (Auto) 5.71 H (1.78-5.38) K/mm3 Lymph # (Auto) 1.25 L (1.32-3.57) K/mm3 [place] # (Auto) 0.74 (0.30-0.82) K/mm3 Eos # (Auto) 0.20 (0.04-0.54) K/mm3 Baso # (Auto) 0.03 (0.01-0.08) K/mm3 Manual Slide Review Normal smear Sodium (136-145) mEq/L Potassium (3.5-5.1) mEq/L Chloride (98-107) mEq/L Carbon Dioxide (21-32) mEq/L Anion Gap (5-15) BUN (7-18) mg/dL Creatinine (0.7-1.3) mg/dL Est Cr Clr Drug Dosing mL/min Estimated GFR (MDRD) (>60) mL/min BUN/Creatinine Ratio (14-18) Glucose (80-115) mg/dL POC Glucose 117 H (80-115) mg/dL Calcium (8.5-10.1) mg/dL Med Orders - Current: Current Medications Acetaminophen (Tylenol) 650 mg PO Q4H PRN PRN Reason: Pain (Mild 1-3)/fever Hydrocodone Bitart/Acetaminophen ([place] 325-5 Mg) 1 tab PO Q4H PRN PRN Reason: Pain (moderate 4-6) Last Admin: 03/17/20 06:14 Dose: 1 tab Documented by: Amlodipine Besylate (Norvasc) 5 mg PO DAILY [facility] Last Admin: 03/17/20 08:59 Dose: 5 mg Documented by: Apixaban (Eliquis) 5 mg PO BID [facility] Last Admin: 03/17/20 08:59 Dose: 5 mg Documented by: Dextrose/Water (Dextrose 50% In Water) 50 ml IV ASDIRECTED PRN PRN Reason: Hypoglycemia Diphenhydramine HCl (Benadryl) 25 mg IVPUSH Q6H PRN PRN Reason: pruritis Ephedrine Sulfate (Ephedrine Sulfate) 5 mg IVPUSH ASDIRECTED PRN PRN Reason: Hypotension Insulin Human Lispro (Humalog) 0 unit SUBCUT QIDACANDBED [facility]; Protocol Last Admin: 03/17/20 12:54 Dose: 2 unit Documented by: Levofloxacin (Levaquin) 750 mg PO Q48H [facility] Last Admin: 03/16/20 14:07 Dose: 750 mg Documented by: Metronidazole (Flagyl) 500 mg PO Q8H [facility] Last Admin: 03/17/20 12:59 Dose: 500 mg Documented by: Morphine Sulfate (Morphine) 1 mg IVPUSH Q4H PRN PRN Reason: Pain Ondansetron HCl (Zofran) 4 mg IV Q4H PRN PRN Reason: Nausea/Vomiting Saccharomyces Boulardii (Florastor) 250 mg PO BID [facility] Last Admin: 03/17/20 08:59 Dose: 250 mg Documented by: Discontinued Medications Albuterol (Proventil Neb Soln) 2.5 mg NEB ONETIME ONE Stop: 03/14/20 15:01 Last Admin: 03/14/20 15:04 Dose: 2.5 mg Documented by: Albuterol (Proventil Neb Soln) 2.5 mg NEB ONETIME PRN PRN Reason: bronchodilation Bupivacaine HCl/Epinephrine Bitart ([place] 0.5%/Epinephrine 1:200,000) Confirm Administered Dose 50 ml .ROUTE .STK-MED ONE Stop: 03/14/20 15:14 Last Admin: 03/14/20 16:17 Dose: 28 ml Documented by: Dexamethasone (Dexamethasone) Confirm Administered Dose 20 mg .ROUTE .STK-MED ONE Stop: 03/14/20 14:00 Ephedrine Sulfate (Ephedrine Sulfate) Confirm Administered Dose 50 mg .ROUTE .STK-MED ONE Stop: 03/14/20 16:19 Fentanyl (Sublimaze) Confirm Administered Dose 250 mcg .ROUTE .STK-MED ONE Stop: 03/14/20 14:01 Fentanyl (Sublimaze) 50 mcg IVPUSH Q5M PRN PRN Reason: Pain Glycopyrrolate (Robinul) Confirm Administered Dose 0.8 mg .ROUTE .STK-MED ONE Stop: 03/14/20 16:44 Heparin Sodium (Porcine) (Heparin Sodium) 5,000 units IVPUSH BOLUS ONE; Protocol Stop: 03/13/20 21:16 Last Admin: 03/13/20 22:39 Dose: 5,000 units Documented by: Heparin Sodium (Porcine) (Heparin Sodium) 1,500 units IVPUSH ONETIME ONE Stop: 03/14/20 08:51 Last Admin: 03/14/20 09:13 Dose: 1,500 units Documented by: Hydromorphone HCl (Dilaudid) Confirm Administered Dose 0.5 mg .ROUTE .STK-MED ONE Stop: 03/14/20 14:00 Hydromorphone HCl (Dilaudid) 0.5 mg IVPUSH ONETIME PRN PRN Reason: Pain Hydromorphone HCl (Dilaudid) Confirm Administered Dose 0.5 mg .ROUTE .STK-MED ONE Stop: 03/14/20 16:25 Hydromorphone HCl (Dilaudid) Confirm Administered Dose 0.5 mg .ROUTE .STK-MED ONE Stop: 03/14/20 17:20 Hydromorphone HCl (Dilaudid) Confirm Administered Dose 0.5 mg .ROUTE .STK-MED ONE Stop: 03/14/20 17:34 Piperacillin Sod/Tazobactam (Sod 4.5 gm/ Sodium Chloride) 100 mls @ 200 mls/hr IV ONETIME ONE Stop: 03/13/20 21:19 Last Admin: 03/13/20 22:38 Dose: 200 mls/hr Documented by: Piperacillin Sod/Tazobactam (Sod 4.5 gm/ Sodium Chloride) 100 mls @ 25 mls/hr IV Q8H [facility] Last Admin: 03/16/20 06:01 Dose: 25 mls/hr Documented by: Heparin Sodium/Dextrose (Heparin 25,000 Units In D5w 500 Ml) 500 mls @ 26 mls/hr IV TITRATE [facility]; Protocol Last Titration: 03/14/20 09:06 Dose: 1,515 units/hr, 30.3 mls/hr Documented by: Lactated Ringer's (Ringers, Lactated) 1,000 mls @ 100 mls/hr IV ASDIRECTED [facility] Last Admin: 03/15/20 22:00 Dose: 100 mls/hr Documented by: Lactated Ringer's (Ringers, Lactated) 1,000 mls @ 1,000 mls/hr IV .BOLUS ONE Stop: 03/14/20 10:42 Last Admin: 03/14/20 10:59 Dose: 1,000 mls/hr Documented by: Lidocaine HCl (Xylocaine-Mpf 1%) Confirm Administered Dose 4 mls @ as directed .ROUTE .STK-MED ONE Stop: 03/14/20 14:00 Lactated Ringer's (Ringers, Lactated) Confirm Administered Dose 2,000 mls @ as directed .ROUTE .STK-MED ONE Stop: 03/14/20 14:00 Sodium Chloride (Normal Saline) 1,000 mls @ 1,000 mls/hr IV ONETIME ONE Stop: 03/15/20 09:06 Last Admin: 03/15/20 09:33 Dose: 1,000 mls/hr Documented by: Sodium Chloride (Normal Saline) 1,000 mls @ 1,000 mls/hr IV ONETIME ONE Stop: 03/16/20 09:04 Last Admin: 03/16/20 21:29 Dose: Not Given Documented by: Labetalol HCl (Normodyne) Confirm Administered Dose 100 mg .ROUTE .STK-MED ONE Stop: 03/14/20 16:31 Midazolam HCl (Versed 1 Mg/Ml) Confirm Administered Dose 2 mg .ROUTE .STK-MED ONE Stop: 03/14/20 14:01 Miscellaneous Information (Remove Patch) 1 ea TRDERM ONETIME ONE Stop: 03/17/20 13:46 Miscellaneous Medication (Phenylephrine 1 Mg/10 Ml-Ns) Confirm Administered Dose 1 mg .ROUTE .STK-MED ONE Stop: 03/14/20 14:00 Miscellaneous Medication (Phenylephrine 1 Mg/10 Ml-Ns) 0 mg IVPUSH ONETIME ONE Stop: 03/14/20 16:22 Last Admin: 03/14/20 22:27 Dose: Not Given Documented by: Neostigmine Methylsulfate (Neostigmine Methylsulfate) Confirm Administered Dose 5 mg .ROUTE .STK-MED ONE Stop: 03/14/20 16:44 Ondansetron HCl (Zofran) Confirm Administered Dose 4 mg .ROUTE .STK-MED ONE Stop: 03/14/20 14:00 Ondansetron HCl (Zofran) 4 mg IVPUSH ONETIME PRN PRN Reason: Nausea/Vomiting Propofol (Diprivan 20 Ml) Confirm Administered Dose 200 mg .ROUTE .STK-MED ONE Stop: 03/14/20 14:00 Rocuronium [place] (Zemuron) Confirm Administered Dose 50 mg .ROUTE .STK-MED ONE Stop: 03/14/20 14:00 Scopolamine (Transderm-Scop) 1.5 mg TRDERM ONETIME ONE Stop: 03/14/20 13:33 Last Admin: 03/14/20 14:14 Dose: 1.5 mg Documented by:
== END 2020-03-17 16:25 | disposition home or self-care (01) | DRG 227 ==
LOC: JD.MS 19:10 → JD.OB 03-16 19:29
PROVIDERS: ADMIT Surgery; ATTEND Surgery
PROC: 0W9J40Z Drainage of Pelvic Cavity with Drainage Device, Percutaneous Endoscopic Approach (ICD-10-PCS; principal; 2020-03-14)
PROC: 0DTJ4ZZ Resection of Appendix, Percutaneous Endoscopic Approach (ICD-10-PCS; principal; 2020-03-14)
PROC: 0WQF4ZZ Repair Abdominal Wall, Percutaneous Endoscopic Approach (ICD-10-PCS; principal; 2020-03-14)
DX: K35.33 Acute appendicitis with perforation, localized peritonitis, and gangrene, with abscess (principal); K36 Other appendicitis; H54.7 Unspecified visual loss; I12.9 Hypertensive chronic kidney disease with stage 1 through stage 4 chronic kidney disease, or unspecified chronic kidney disease; N18.9 Chronic kidney disease, unspecified; M10.9 Gout, unspecified; R73.03 Prediabetes; N17.9 Acute kidney failure, unspecified; K42.9 Umbilical hernia without obstruction or gangrene; Z79.82 Long term (current) use of aspirin; Z79.899 Other long term (current) drug therapy; Z79.2 Long term (current) use of antibiotics; Z79.01 Long term (current) use of anticoagulants; Z79.890 Hormone replacement therapy; Z86.19 Personal history of other infectious and parasitic diseases; Z88.1 Allergy status to other antibiotic agents; Z85.820 Personal history of malignant melanoma of skin; Z87.01 Personal history of pneumonia (recurrent); I26.99 Other pulmonary embolism without acute cor pulmonale
CPT/HCPCS: 00840; 36415; 51798; 76770; 76770-26; 80048; 80053; 81001; 82962; 83036; 83605; 83735; 84100; 84145; 85025; 85027; 85730; 86140; 94640; 94667; 94761; 99222; 99232; A9270-GY; J0330; J1100; J1170; J1644; J1815-GY; J2001; J2250; J2370; J2405; J2543; J2704; J2710; J3010; J3490; J7030; J7050; J7120

== ENCOUNTER 2024-02-27 01:40 | Emergency (ER) | payer MEDICARE, BC ==
[2024-02-27] MEDS ORDERED: Sodium Chloride 0.9% 10 ML Syringe FLUSH PRN (02:24)
[2024-02-27 02:57] LABS: HEMOGLOBIN 8.4 gm/dl (14.0-18.0); MEAN CORPUSCULAR HGB CONC 31.1 g/dl (32.0-36.0); PLATELET COUNT,PLT 253 K/mm3 (150-400); WHITE BLOOD CELL COUNT,WBC 12.52 K/mm3 (3.9-11.3)
[2024-02-27 03:15] LABS: BAND PERCENT MAN 5 % (0-10); BASOPHILS PERCENT MAN 0 (0.2-1.2); EOSINOPHILS PERCENT MAN 1 % (0.8-7.0); LYMPHOCYTES % ATYPICAL MANUAL 0 %; LYMPHOCYTES PERCENT MAN 3 % (20-40); MONOCYTES PERCENT MAN 3 % (2-10)
[2024-02-27 03:17] LABS: INR 1.11; PROTHROMBIN TIME 11.7 SECONDS (9.7-12.0)
[2024-02-27 03:19] LABS: A/G RATIO 0.7 (1-2); ALBUMIN 2.2 g/dl (3.4-5.0); ANION GAP 16.9 (5-15); BILIRUBIN TOTAL 0.5 mg/dL (0.2-1.0); BUN/CREATININE RATIO 15.3 (14-18); CALCIUM 8.8 mg/dL (8.5-10.1); CREATININE 3.4 mg/dL (0.7-1.3); EST CRCL DRUG DOSING (CG) 23.5 mL/min; PLATELET COUNT ESTIMATE ADEQUATE; POTASSIUM,K 4.9 mEq/L (3.5-5.1); PROTEIN TOTAL,TP 5.4 g/dl (6.4-8.2)
[2024-02-27 03:20] LABS: MAGNESIUM 1.6 mg/dL (1.8-2.4)
[2024-02-27 03:21] LABS: LACTIC ACID 0.7 mmol/L (0.4-2.0)
[2024-02-27 03:27] LABS: CORONAVIRUS COVID-19 NAA NEGATIVE (NEGATIVE); INFLUENZA A NAA NEGATIVE (NEGATIVE); RESPIRATORY SYNCYTIAL VIR NAA NEGATIVE (NEGATIVE)
[2024-02-27] MEDS: Sodium Chloride 0.9% 500 ML IV ONE (03:39)
[2024-02-27 04:28] LABS: APPEARANCE,URINE CLOUDY (Clear); BILIRUBIN,URINE NEGATIVE (Negative); COLOR,URINE YELLOW (Yellow); GLUCOSE,URINE NEGATIVE (Negative); KETONES,URINE NEGATIVE (Negative); LEUKOCYTE ESTERASE,URINE 3+ (Negative); NITRITE,URINE NEGATIVE (Negative); OCCULT BLOOD,URINE 2+ (Negative); PH,URINE 5.5 (5.0-8.0); PROTEIN,URINE 3+ (Negative); UROBILINOGEN,URINE 0.2 (0.2-1.0)
[2024-02-27 04:41] LABS: BACTERIA,URINE MODERATE /hpf (FEW); EPITHELIAL CELLS,URINE 0-5 /hpf (0-5); MUCUS,URINE NOT SEEN /hpf (FEW); RBC,URINE 0-5 /hpf (0-5); WBC CLUMPS,URINE MODERATE /hpf (NOT SEEN); WBC,URINE >100 /hpf (0-5)
[2024-02-27] MEDS: Piperacillin/Tazobactam 4.5 GM in Sodium Chloride 0.9% 100 ML IV ONE (05:11)
[2024-02-27] MEDS: Sodium Chloride 0.9% 10 ML Syringe FLUSH PRN (08:28)
[2024-02-27] MEDS: Acetaminophen 325 MG Tab PO ONE (08:28)
== END 2024-02-27 11:34 ==
LOC: JD.ED 01:40
DX: N39.0 Urinary tract infection, site not specified (principal); D64.9 Anemia, unspecified; Z94.0 Kidney transplant status; R19.5 Other fecal abnormalities; I10 Essential (primary) hypertension; Z86.16 Personal history of COVID-19; Z79.899 Other long term (current) drug therapy; Z88.1 Allergy status to other antibiotic agents
CPT/HCPCS: 0241U; 36415; 71045; 74176; 80053; 81001; 82272; 83605; 83690; 83735; 83880; 84484; 85007; 85027; 85610; 85730; 87040; 87086; 87154; 93005; 96361; 96365; 99285; A9270; J2543; J3490; J7030; 87077; 87088; 87186; 93010